=== PATIENT | female | born 1975 | race Caucasian/White ===

== ENCOUNTER 2017-10-26 20:09 | Emergency (ER) | payer MEDICARE, MEDICAID, SELFPAY ==
[2017-10-26 20:19] VITALS: BP 104/51; PULSE 98; RESP 18; TEMP 37; O2SAT 98; BMI 34.4
--- NOTE | 2017-10-26 20:34 | XR_ITS ---
XR chest 2V HISTORY: ITS.REASON: weakness ORDERING PHYSICIAN: Mukul Cisneros MD PATIENT AGE: 42 years COMPARISON: 06/06/2017 FINDINGS: The cardiomediastinal silhouette and pulmonary vascularity are within normal limits. The lungs are clear without infiltrates, suspicious nodules, or pleural effusions. No acute bony abnormalities. IMPRESSION: Negative chest, no acute finding
[2017-10-26 20:59] LABS: Microscopic, Urine URINE MICROSCOPIC (MICROSCOPIC)
[2017-10-26 21:03] LABS: Basophils % 0.5 % (0.1-2.0); Eosinophils # 0.2 K/mm3 (0.0-0.4); Eosinophils % 1.7 % (0.1-12.0); Hematocrit 39.6 % (37.0-47.0); Lymphocytes # 2.8 K/mm3 (0.7-4.5); Lymphocytes % 30.7 K/mm3 (10-50); Mean Corpuscular HGB Conc 35.3 g/dL (31.8-35.4); Mean Corpuscular Hemoglobin 29.3 pg (27.0-31.2); Mean Corpuscular Volume 83.1 fl (81-99); Mean Platelet Volume 9.3 fl (7.4-10.4); Monocytes # 0.5 K/mm3 (0.1-1.0); Monocytes % 5.8 % (1.7-9.3); Neutrophils # 5.6 K/mm3 (1.8-7.8); Neutrophils % 61.3 % (37.0-80.0); Platelet Count 256 K/mm3 (142-424); Red Blood Count 4.76 M/mm3 (4.20-5.40); Red Cell Distribution Width 13.7 % (11.5-17.5); White Blood Count 9.1 K/mm3 (4.8-10.8)
[2017-10-26 21:11] LABS: Appearance,Urine CLEAR (Clear); Blood, Urine 1+ (Negative); Color,Urine YELLOW (Yellow); Glucose,Urine (UA) Negative (Negative); Ketones,Urine TRACE (Negative); Leukocyte Esterase,Urine TRACE (Negative); Nitrate,Urine POSITIVE (Negative); Protein,Urine 1+ (Negative); Specific Gravity, Urine >= 1.030 (1.005-1.030)
[2017-10-26 21:14] LABS: Alanine Aminotransferase 61 U/L (12-78); Albumin Level 3.7 gm/dL (3.4-5.0); Albumin/Globulin Ratio 0.9 (1.1-1.8); Alkaline Phosphatase 138 U/L (46-116); Anion Gap 10.5 mEq/L (5-15); Aspartate Amino Transferase 35 U/L (15-37); Bilirubin,Total 0.7 mg/dL (0.2-1.0); Blood Urea Nitrogen 8 mg/dL (7-18); Calcium 8.9 mg/dL (8.5-10.1); Carbon Dioxide 30 mmol/L (21.0-32.0); Chloride 100 mmol/L (98-107); Creatinine Clearance Estimated 202 mL/min (0-300); Creatinine,Serum 0.56 mg/dL (0.55-1.02); Estimated Glomerular Filt Rate 118 ml/min (>60); GFR (African American) 142 ML/MIN (>60); Globulin 4.1 gm/dl (1.3-3.2); Glucose 118 mg/dL (74-106); Potassium 3.5 mmoL/L (3.5-5.1); Sodium 137 mmol/L (136-145); Total Protein,Serum 7.8 gm/dL (6.4-8.2)
[2017-10-26 21:18] LABS: Lactic Acid 0.7 mmol/L (0.4-2.0)
[2017-10-26 21:29] LABS: Bilirubin,Urine 2+ (Negative)
[2017-10-26 22:02] LABS: WBC,Urine 50-100 #/hpf (0-3)
[2017-10-26 22:03] LABS: Bacteria,Urine 4+ /lpf; Calcium Oxalate Crystals,Urine 2+ /lpf
[2017-10-26 22:17] VITALS: BP 101/74; PULSE 90; RESP 14; O2SAT 98
--- NOTE | 2017-10-26 22:50 | [facility]H.EDSOB ---
ED Disposition Clinical Impression: Bronchitis UTI (urinary tract infection) Qualifiers: Urinary tract infection type: acute cystitis Hematuria presence: without hematuria Qualified Code(s): N30.00 - Acute cystitis without hematuria Disposition: Home, Self-Care Condition on Discharge: Good Instructions: DI for Urinary Tract Infection (UTI) Additional Instructions: fluids and see pcp for follow up Prescriptions: cephALEXin [Keflex 500mg Cap] 500 mg PO TID #30 cap Referrals: Tessa Pickett PA [Primary Care Provider] - - Critical Care Critical Care Time: No Attestation: On 10/26/17, the high probability of a clinically significant, sudden or life threatening deterioration of the following system(s) required my full and direct attention, intervention and personal management. The time I documented below is in addition to time spent performing reported procedures but includes the following listed in this critical care notation. Medical Decision Making - Medical Records Medical records reviewed: Yes: I reviewed the patient's medical records. Vital Signs: 10/26/17 20:19 10/26/17 22:17 Temperature 98.6 F Temperature Source Oral Pulse Rate [Left] 98 H 90 Respiratory Rate 18 14 Blood Pressure [Left Arm] 104/51 101/74 Blood Pressure Mean [Left Arm] 68 83 Blood Pressure Source [Left Arm] Automatic Cuff Blood Pressure Position [Left Arm] Sitting 02 Sat by Pulse Oximetry 98 98 Oxygen Delivery Method Room Air Room Air - Lab Data Lab results reviewed: Yes: I reviewed the patient's lab results. Lab Results 10/26/17 20:51: WBC 9.1, RBC 4.76, Hgb 14.0, Hct 39.6, MCV 83.1, MCH 29.3, MCHC 35.3, RDW 13.7, Plt Count 256, MPV 9.3, Neut % (Auto) 61.3, Lymph % (Auto) 30.7, [place] % (Auto) 5.8, Eos % (Auto) 1.7, Baso % (Auto) 0.5, Neut # (Auto) 5.6, Lymph # (Auto) 2.8, [place] # (Auto) 0.5, Eos # (Auto) 0.2, Baso # (Auto) 0.0 10/26/17 20:51: Sodium 137, Potassium 3.5, Chloride 100, Carbon Dioxide 30, Anion Gap 10.5, BUN 8, Creatinine 0.56, Estimated Creat Clear 202, Estimated GFR 118, Est GFR ( Amer) 142, Glucose 118 H, Calcium 8.9, Total Bilirubin 0.7, AST 35, ALT 61, Alkaline Phosphatase 138 H, Total Protein 7.8, Albumin 3.7, Globulin 4.1 H, Albumin/Globulin Ratio 0.9 L 10/26/17 20:51: Lactic Acid 0.7 10/26/17 20:51: Influenza Type A Ag Negative, Influenza Type B Ag Negative 10/26/17 20:51: Urine Color Yellow, Urine Appearance Clear, Urine pH 6.0, Ur Specific [place] >= 1.030, Urine Protein 1+, Urine Glucose (UA) Negative, Urine Ketones Trace, Urine Blood 1+, Urine Nitrate Positive, Urine Bilirubin 2+ A, Urine Urobilinogen 1.0, Ur Leukocyte Esterase Trace, Urine RBC 3-5, Urine WBC 50-100, Ur Squamous Epith Cells 5-10, Calcium Oxalate Crystal 2+, Urine Bacteria 4+ Result diagrams: 10/26/17 20:51 10/26/17 20:51 Orders (Tests/Meds): ED MEDICATIONS Generic Name Dose Route Start Last Admin Trade Name Freq PRN Reason Stop Dose Admin Sodium Chloride 1,000 mls @ 999 mls/hr 10/26/17 23:00 Sod Chlor 0.9% 1000ml Bag IV 10/27/17 00:00 .Q1H1M VEL Ceftriaxone Sodium 1 gm/ 50 mls @ 100 mls/hr 10/26/17 22:53 Sodium Chloride IV 10/26/17 23:22 ONCE ONE Discontinued Medications Generic Name Dose Route Start Last Admin Trade Name Freq PRN Reason Stop Dose Admin Ketorolac Tromethamine 30 mg 10/26/17 22:54 Toradol 30mg/Ml Vial IV 10/26/17 22:55 ONCE ONE ORDERS Category Date Time Status Chest XR 2 view (NOT portable) [XR chest 2V] Stat Exams 10/26/17 20:34 Taken Blood Culture Stat Micro 10/26/17 20:51 Received Urine Culture Stat Micro 10/26/17 20:51 Received - Radiology Data #1 Image(s): Chest Image Reviewed: Yes I reviewed the patient's radiology image Preliminary Findings: Normal/NAD - Pepito Inquiry Pt receiving controlled substance: No Resp/SOB HPI - General Chief Complaint: Headache Stated Complaint: hodge,body pain Time Seen by Prov
--- NOTE | 2017-10-26 22:55 | ED_ITS ---
ED Disposition Clinical Impression: Bronchitis UTI (urinary tract infection) Qualifiers: Urinary tract infection type: acute cystitis Hematuria presence: without hematuria Qualified Code(s): N30.00 - Acute cystitis without hematuria Disposition: Home, Self-Care Condition on Discharge: Good Instructions: DI for Urinary Tract Infection (UTI) Additional Instructions: fluids and see pcp for follow up Prescriptions: cephALEXin [Keflex 500mg Cap] 500 mg PO TID #30 cap Referrals: Tessa Pickett PA [Primary Care Provider] - - Critical Care Critical Care Time: No Attestation: On 10/26/17, the high probability of a clinically significant, sudden or life threatening deterioration of the following system(s) required my full and direct attention, intervention and personal management. The time I documented below is in addition to time spent performing reported procedures but includes the following listed in this critical care notation. Medical Decision Making - Medical Records Medical records reviewed: Yes: I reviewed the patient's medical records. Vital Signs: 10/26/17 20:19 10/26/17 22:17 Temperature 98.6 F Temperature Source Oral Pulse Rate [Left] 98 H 90 Respiratory Rate 18 14 Blood Pressure [Left Arm] 104/51 101/74 Blood Pressure Mean [Left Arm] 68 83 Blood Pressure Source [Left Arm] Automatic Cuff Blood Pressure Position [Left Arm] Sitting 02 Sat by Pulse Oximetry 98 98 Oxygen Delivery Method Room Air Room Air - Lab Data Lab results reviewed: Yes: I reviewed the patient's lab results. Lab Results 10/26/17 20:51: WBC 9.1, RBC 4.76, Hgb 14.0, Hct 39.6, MCV 83.1, MCH 29.3, MCHC 35.3, RDW 13.7, Plt Count 256, MPV 9.3, Neut % (Auto) 61.3, Lymph % (Auto) 30.7 , [place] % (Auto) 5.8, Eos % (Auto) 1.7, Baso % (Auto) 0.5, Neut # (Auto) 5.6, Lymph # (Auto) 2.8, [place] # (Auto) 0.5, Eos # (Auto) 0.2, Baso # (Auto) 0.0 10/26/17 20:51: Sodium 137, Potassium 3.5, Chloride 100, Carbon Dioxide 30, Anion Gap 10.5, BUN 8, Creatinine 0.56, Estimated Creat Clear 202, Estimated GFR 118, Est GFR ( Amer) 142, Glucose 118 H, Calcium 8.9, Total Bilirubin 0.7, AST 35, ALT 61, Alkaline Phosphatase 138 H, Total Protein 7.8, Albumin 3.7, Globulin 4.1 H, Albumin/Globulin Ratio 0.9 L 10/26/17 20:51: Lactic Acid 0.7 10/26/17 20:51: Influenza Type A Ag Negative, Influenza Type B Ag Negative 10/26/17 20:51: Urine Color Yellow, Urine Appearance Clear, Urine pH 6.0, Ur Specific [place] >= 1.030, Urine Protein 1+, Urine Glucose (UA) Negative, Urine Ketones Trace, Urine Blood 1+, Urine Nitrate Positive, Urine Bilirubin 2+ A, Urine Urobilinogen 1.0, Ur Leukocyte Esterase Trace, Urine RBC 3-5, Urine WBC 50 -100, Ur Squamous Epith Cells 5-10, Calcium Oxalate Crystal 2+, Urine Bacteria 4 + Result diagrams: 10/26/17 20:51 10/26/17 20:51 Orders (Tests/Meds): ED MEDICATIONS Generic Name Dose Route Start Last Admin Trade Name Freq PRN Reason Stop Dose Admin Sodium Chloride 1,000 mls @ 999 mls/hr 10/26/17 23:00 Sod Chlor 0.9% 1000ml Bag IV 10/27/17 00:00 .Q1H1M VEL Ceftriaxone Sodium 1 gm/ 50 mls @ 100 mls/hr 10/26/17 22:53 Sodium Chloride IV 10/26/17 23:22 ONCE ONE Discontinued Medications Generic Name Dose Route Start Last Admin Trade Name Freq PRN Reason Stop Dose Admin Ketorolac Tromethamine 30 mg 10/26/17 22:54 Tor
[2017-10-27] VITALS: BP 121/81; PULSE 100; RESP 16; TEMP 37.2; O2SAT 99
== END 2017-10-27 00:02 | disposition home or self-care (01) ==
PROVIDERS: Emergency Provider Emergency Medicine; Family Provider Physician Assistant; PCP Physician Assistant
DX: J20.9 Acute bronchitis, unspecified (principal); N30.00 Acute cystitis without hematuria; E11.9 Type 2 diabetes mellitus without complications; E78.5 Hyperlipidemia, unspecified; I10 Essential (primary) hypertension; F17.210 Nicotine dependence, cigarettes, uncomplicated; Z79.899 Other long term (current) drug therapy; Z88.0 Allergy status to penicillin; Z88.2 Allergy status to sulfonamides; Z79.82 Long term (current) use of aspirin; Z91.040 Latex allergy status; Z88.8 Allergy status to other drugs, medicaments and biological substances
CPT/HCPCS: 71046; 80053; 81001; 83605; 85025; 87040; 87086; 87088; 87186; 87275; 87276; 96365; 96367; 96372; 96374; 96375; 99283

== ENCOUNTER 2017-11-08 12:43 | Outpatient (CLI) | payer MEDICARE, MEDICAID, SELFPAY ==
--- NOTE | 2017-11-08 12:54 | XR_ITS ---
XR KUB CLINICAL INDICATION: ITS.REASON: UTI ORDERING PHYSICIAN: WAI Houser PATIENT AGE: 42 years COMPARISON: None FINDINGS: Nonspecific nonobstructive bowel gas pattern. Surgical clips right upper quadrant. Faint calcifications are present in the pelvis and could be due to phleboliths. One cannot exclude ureteral calculi. CT may be of further evaluation if clinically warranted. Suture line is present in the pelvis IMPRESSION: 1. Nonspecific pelvic calcification. Cannot exclude a ureteral calculus. 2. Otherwise negative
[2017-11-08 13:36] VITALS: BMI 33.0
[2017-11-08 14:29] VITALS: BP 92/50; PULSE 85; RESP 18; TEMP 36.9; O2SAT 97
[2017-11-08 14:50] VITALS: BP 95/52; PULSE 79; RESP 18; O2SAT 96
[2017-11-08 16:05] VITALS: BP 96/57; PULSE 82; RESP 18; TEMP 36.8; O2SAT 96
== END 2017-11-08 16:10 | disposition home or self-care (01) ==
LOC: INF 12:45
PROVIDERS: PCP Physician Assistant; Visit Provider Physician Assistant
DX: N39.0 Urinary tract infection, site not specified (principal)
CPT/HCPCS: 74018; 96365

== ENCOUNTER → 2017-11-08 12:48 | Outpatient (REF) | payer MEDICARE, MEDICAID, SELFPAY | LOC: LAB 12:48 | PROVIDERS: Visit Provider Nurse Practitioner Family | DX: R10.9 Unspecified abdominal pain (principal) | CPT/HCPCS: 74018; 87086; 96365 ==

== ENCOUNTER 2017-11-09 17:03 | Emergency (ER) | payer MEDICARE, MEDICAID, SELFPAY ==
[2017-11-09 17:07] VITALS: BP 82/48; PULSE 93; RESP 18; TEMP 36.9; O2SAT 96; BMI 33.0
--- NOTE | 2017-11-09 17:21 | HMH.EDUROGF ---
ED Disposition Clinical Impression: Enteritis, Colitis Disposition: Home, Self-Care Condition on Discharge: Fair Additional Instructions: 1- drink plenty of gotrade. 2- flagyl 500 mg tid x one week. 3- bentylt 10 mg tid prn tid. 4- out patietn stool studies folow up with christian pickett on the results. 5- to return foir fever , vomiting or worse pain. Prescriptions: metroNIDAZOLE [Flagyl] 500 mg PO Q8 #21 tab Referrals: Christian Pickett PA [Primary Care Provider] - - Critical Care Critical Care Time: No Attestation: On 11/09/17, the high probability of a clinically significant, sudden or life threatening deterioration of the following system(s) required my full and direct attention, intervention and personal management. The time I documented below is in addition to time spent performing reported procedures but includes the following listed in this critical care notation. Medical Decision Making Vital Signs: 11/09/17 17:07 Temperature 98.5 F Temperature Source Oral Pulse Rate [Right Brachial] 93 H Respiratory Rate 18 Blood Pressure [Right Arm] 82/48 Blood Pressure Mean [Right Arm] 59 Blood Pressure Source [Right Arm] Automatic Cuff Blood Pressure Position [Right Arm] Sitting 02 Sat by Pulse Oximetry 96 Oxygen Delivery Method Room Air - Lab Data Lab Results 11/09/17 17:50: WBC 7.9, RBC 4.13 L, Hgb 12.0 L, Hct 34.4 L, MCV 83.3, MCH 29.2, MCHC 35.0, RDW 13.4, Plt Count 270, MPV 9.3, Neut % (Auto) 60.8, Lymph % (Auto) 30.1, [place] % (Auto) 6.3, Eos % (Auto) 2.3, Baso % (Auto) 0.4, Neut # (Auto) 4.8, Lymph # (Auto) 2.4, [place] # (Auto) 0.5, Eos # (Auto) 0.2, Baso # (Auto) 0.0 11/09/17 17:50: Sodium 138, Potassium 3.5, Chloride 102, Carbon Dioxide 28, Anion Gap 11.5, BUN 10, Creatinine 0.79, Estimated Creat Clear 137, Estimated GFR 79, Est GFR ( Amer) 96, Glucose 151 H, Calcium 8.5, Total Bilirubin 0.4, AST 29, ALT 52, Alkaline Phosphatase 133 H, Total Protein 6.9, Albumin 3.0 L, Globulin 3.9 H, Albumin/Globulin Ratio 0.8 L 11/09/17 17:50: Lactic Acid 1.5 11/09/17 17:55: Urine Color Yellow, Urine Appearance Clear, Urine pH 5.5, Ur Specific [place] 1.025, Urine Protein Trace, Urine Glucose (UA) Negative, Urine Ketones Trace, Urine Blood Negative, Urine Nitrate Negative, Urine Bilirubin 1+ A, Urine Urobilinogen 0.2, Ur Leukocyte Esterase Negative Result diagrams: 11/09/17 17:50 11/09/17 17:50 Orders (Tests/Meds): ED MEDICATIONS Generic Name Dose Route Start Last Admin Trade Name Freq PRN Reason Stop Dose Admin Ceftriaxone Sodium 1 gm/ 50 mls @ 100 mls/hr 11/09/17 17:30 11/09/17 18:06 Sodium Chloride IV 11/23/17 17:29 100 mls/hr Q24H VEL Administration Discontinued Medications Generic Name Dose Route Start Last Admin Trade Name Antonioq PRN Reason Stop Dose Admin Sodium Chloride 500 mls @ 999 mls/hr 11/09/17 17:30 11/09/17 18:06 Sod Chlor 0.9% 1000ml Bag IV 11/09/17 18:00 999 mls/hr .Q31M VEL Administration Meperidine HCl 12.5 mg 11/09/17 17:31 11/09/17 18:06 Meperidine 25mg/Ml 1ml Syringe IV 11/09/17 17:32 12.5 mg ONCE ONE Administration Metronidazole 500 mg 11/09/17 18:27 11/09/17 18:30 Metronidazole 500mg Tablet PO 11/09/17 18:28 500 mg ONCE ONE Administration Protocol Promethazine HCl 12.5 mg 11/09/17 17:31 11/09/17 18:06 Phenergan 25mg/Ml 1ml Vial IV 11/09/17 17:32 12.5 mg ONCE ONE Administration Sodium Chloride 25 ml 11/09/17 17:31 11/09/17 18:06 Sod Chlor 0.9% 25ml Bag IV 11/09/17 17:32 25 ml ONCE ONE Administration ORDERS Category Date Time Status CT abdomen pelvis wo con Stat Cat Scan 11/09/17 17:27 Taken Urinalysis and Microscopic Stat Lab 11/09/17 17:55 Results Blood Culture Stat Micro 11/09/17 17:50 Received - Pepito Inquiry Pt receiving controlled substance: No Pepito was queried for this patient: No Medical Decision Making Narrative: I discussed with the patient's her
--- NOTE | 2017-11-09 17:25 | ED_ITS ---
ED Disposition Clinical Impression: Enteritis, Colitis Disposition: Home, Self-Care Condition on Discharge: Fair Additional Instructions: 1- drink plenty of gotrade. 2- flagyl 500 mg tid x one week. 3- bentylt 10 mg tid prn tid. 4- out patietn stool studies folow up with christian pickett on the results. 5- to return foir fever , vomiting or worse pain. Prescriptions: metroNIDAZOLE [Flagyl] 500 mg PO Q8 #21 tab Referrals: Christian Pickett PA [Primary Care Provider] - - Critical Care Critical Care Time: No Attestation: On 11/09/17, the high probability of a clinically significant, sudden or life threatening deterioration of the following system(s) required my full and direct attention, intervention and personal management. The time I documented below is in addition to time spent performing reported procedures but includes the following listed in this critical care notation. Medical Decision Making Vital Signs: 11/09/17 17:07 Temperature 98.5 F Temperature Source Oral Pulse Rate [Right Brachial] 93 H Respiratory Rate 18 Blood Pressure [Right Arm] 82/48 Blood Pressure Mean [Right Arm] 59 Blood Pressure Source [Right Arm] Automatic Cuff Blood Pressure Position [Right Arm] Sitting 02 Sat by Pulse Oximetry 96 Oxygen Delivery Method Room Air - Lab Data Lab Results 11/09/17 17:50: WBC 7.9, RBC 4.13 L, Hgb 12.0 L, Hct 34.4 L, MCV 83.3, MCH 29.2 , MCHC 35.0, RDW 13.4, Plt Count 270, MPV 9.3, Neut % (Auto) 60.8, Lymph % (Auto ) 30.1, [place] % (Auto) 6.3, Eos % (Auto) 2.3, Baso % (Auto) 0.4, Neut # (Auto) 4.8, Lymph # (Auto) 2.4, [place] # (Auto) 0.5, Eos # (Auto) 0.2, Baso # (Auto) 0.0 11/09/17 17:50: Sodium 138, Potassium 3.5, Chloride 102, Carbon Dioxide 28, Anion Gap 11.5, BUN 10, Creatinine 0.79, Estimated Creat Clear 137, Estimated GFR 79, Est GFR ( Amer) 96, Glucose 151 H, Calcium 8.5, Total Bilirubin 0.4, AST 29, ALT 52, Alkaline Phosphatase 133 H, Total Protein 6.9, Albumin 3.0 L, Globulin 3.9 H, Albumin/Globulin Ratio 0.8 L 11/09/17 17:50: Lactic Acid 1.5 11/09/17 17:55: Urine Color Yellow, Urine Appearance Clear, Urine pH 5.5, Ur Specific [place] 1.025, Urine Protein Trace, Urine Glucose (UA) Negative, Urine Ketones Trace, Urine Blood Negative, Urine Nitrate Negative, Urine Bilirubin 1+ A, Urine Urobilinogen 0.2, Ur Leukocyte Esterase Negative Result diagrams: 11/09/17 17:50 11/09/17 17:50 Orders (Tests/Meds): ED MEDICATIONS Generic Name Dose Route Start Last Admin Trade Name Freq PRN Reason Stop Dose Admin Ceftriaxone Sodium 1 gm/ 50 mls @ 100 mls/hr 11/09/17 17:30 11/09/17 18:06 Sodium Chloride IV 11/23/17 17:29 100 mls/hr Q24H VEL Administration Discontinued Medications Generic Name Dose Route Start Last Admin Trade Name Freq PRN Reason Stop Dose Admin Sodium Chloride 500 mls @ 999 mls/hr 11/09/17 17:30 11/09/17 18:06 Sod Chlor 0.9% 1000ml Bag IV 11/09/17 18:00 999 mls/hr .Q31M VEL Administration Meperidine HCl 12.5 mg 11/09/17 17:31 11/09/17 18:06 Meperidine 25mg/Ml 1ml Syringe IV 11/09/17 17:32 12.5 mg ONCE ONE Administration Metronidazole 500 mg 11/09/17 18:27 11/09/17 18:30 Metronidazole 500mg Tablet PO 11/09/17 18:28 500 mg ONCE ONE Administration Protocol Promethazine HCl 12.5 mg 11/09/17 17:31 0
--- NOTE | 2017-11-09 17:27 | CT_ITS ---
CT abdomen pelvis wo con CLINICAL INDICATION: Abdominal pain and right flank pain. ITS.REASON: hx of horse shoe kidney and r side flank pain . ORDERING PHYSICIAN: Charlie Zheng MD PATIENT AGE: 42 years COMPARISON: 09/12/2016 TECHNIQUE: Axial images obtained with sagittal and coronal reformats. PROCEDURE: Oral Contrast: None IV Contrast: None . FINDINGS: No acute finding is lower chest. Prior cholecystectomy. No focal liver lesion or biliary ductal dilatation. There is elongation of the right hepatic lobe inferiorly consistent with a Bessie's lobe as a normal variant. There is mild splenomegaly at 14 cm scattered granulomas in the spleen and splenules and hilar area. The adrenal glands and pancreas are unremarkable. There is a horseshoe kidney. No hydronephrosis or obstructing renal or ureteral calculi are evident. Unremarkable appendix. No intestinal obstruction or free air. A suture line is present in the pelvic region within the small bowel. There are a few air-fluid levels within the colon which is nonspecific and may be seen with diarrhea or low-grade colitis. Prior hysterectomy. No pelvic mass or focal inflammatory change. No acute bony anomalies. IMPRESSION: 1. Horseshoe kidney configuration. No obstructing renal or ureteral calculi. 2. Unremarkable appendix. 3. Scattered air-fluid levels within nondistended colon which could be seen with diarrhea/low-grade colitis requiring clinical correlation
[2017-11-09 17:58] LABS: Microscopic, Urine URINE MICROSCOPIC (MICROSCOPIC)
[2017-11-09 18:00] LABS: Appearance,Urine CLEAR (Clear); Blood, Urine Negative (Negative); Color,Urine YELLOW (Yellow); Glucose,Urine (UA) Negative (Negative); Ketones,Urine TRACE (Negative); Leukocyte Esterase,Urine Negative (Negative); Nitrate,Urine Negative (Negative); PH,Urine 5.5 (5.0-8.5); Protein,Urine TRACE (Negative); Specific Gravity, Urine 1.025 (1.005-1.030); Urobilinogen,Urine 0.2 EU/dl (0.2)
[2017-11-09 18:02] LABS: Basophils % 0.4 % (0.1-2.0); Eosinophils # 0.2 K/mm3 (0.0-0.4); Eosinophils % 2.3 % (0.1-12.0); Hematocrit 34.4 % (37.0-47.0); Lymphocytes # 2.4 K/mm3 (0.7-4.5); Lymphocytes % 30.1 K/mm3 (10-50); Mean Corpuscular Hemoglobin 29.2 pg (27.0-31.2); Mean Corpuscular Volume 83.3 fl (81-99); Mean Platelet Volume 9.3 fl (7.4-10.4); Monocytes # 0.5 K/mm3 (0.1-1.0); Monocytes % 6.3 % (1.7-9.3); Neutrophils # 4.8 K/mm3 (1.8-7.8); Neutrophils % 60.8 % (37.0-80.0); Platelet Count 270 K/mm3 (142-424); Red Blood Count 4.13 M/mm3 (4.20-5.40); Red Cell Distribution Width 13.4 % (11.5-17.5); White Blood Count 7.9 K/mm3 (4.8-10.8)
[2017-11-09 18:03] LABS: Bilirubin,Urine 1+ (Negative)
[2017-11-09 18:14] LABS: Lactic Acid 1.5 mmol/L (0.4-2.0)
[2017-11-09 18:43] LABS: Alanine Aminotransferase 52 U/L (12-78); Albumin/Globulin Ratio 0.8 (1.1-1.8); Alkaline Phosphatase 133 U/L (46-116); Anion Gap 11.5 mEq/L (5-15); Aspartate Amino Transferase 29 U/L (15-37); Bilirubin,Total 0.4 mg/dL (0.2-1.0); Blood Urea Nitrogen 10 mg/dL (7-18); Calcium 8.5 mg/dL (8.5-10.1); Carbon Dioxide 28 mmol/L (21.0-32.0); Chloride 102 mmol/L (98-107); Creatinine Clearance Estimated 137 mL/min (0-300); Creatinine,Serum 0.79 mg/dL (0.55-1.02); Estimated Glomerular Filt Rate 79 ml/min (>60); GFR (African American) 96 ML/MIN (>60); Globulin 3.9 gm/dl (1.3-3.2); Glucose 151 mg/dL (74-106); Potassium 3.5 mmoL/L (3.5-5.1); Sodium 138 mmol/L (136-145); Total Protein,Serum 6.9 gm/dL (6.4-8.2)
[2017-11-09 19:13] LABS: Bacteria,Urine 1+ /lpf; RBC,Urine Occasional #/hpf (0-3); Squamous Epithelial Cell,Urine Occasional #/hpf (0-5); WBC,Urine Occasional #/hpf (0-3)
[2017-11-09 19:27] VITALS: BP 88/49; PULSE 95; RESP 16; TEMP 36.8; O2SAT 96
== END 2017-11-09 19:33 | disposition home or self-care (01) ==
PROVIDERS: Emergency Provider Emergency Medicine; Family Provider Physician Assistant; PCP Physician Assistant
DX: K52.9 Noninfective gastroenteritis and colitis, unspecified (principal); F17.210 Nicotine dependence, cigarettes, uncomplicated; E11.9 Type 2 diabetes mellitus without complications; I10 Essential (primary) hypertension; E78.5 Hyperlipidemia, unspecified; Z79.51 Long term (current) use of inhaled steroids; Z79.899 Other long term (current) drug therapy
CPT/HCPCS: 74176; 80053; 81001; 83605; 85025; 87040; 96365; 96367; 96374; 96375; 99282

== ENCOUNTER → 2017-12-30 13:34 | Outpatient (REF) | payer MEDICARE, MEDICAID, SELFPAY ==
[2017-12-30 18:42] LABS: Basophils # 0.1 K/mm3 (0-0.2); Basophils % 0.6 % (0.1-2.0); Eosinophils # 0.2 K/mm3 (0.0-0.4); Eosinophils % 2.7 % (0.1-12.0); Hematocrit 39.6 % (37.0-47.0); Hemoglobin 13.4 g/dL (12.2-16.2); Lymphocytes # 2.8 K/mm3 (0.7-4.5); Lymphocytes % 31.7 K/mm3 (10-50); Mean Corpuscular HGB Conc 33.8 g/dL (31.8-35.4); Mean Corpuscular Hemoglobin 29.2 pg (27.0-31.2); Mean Corpuscular Volume 86.5 fl (81-99); Mean Platelet Volume 9.5 fl (7.4-10.4); Monocytes # 0.4 K/mm3 (0.1-1.0); Monocytes % 4.1 % (1.7-9.3); Neutrophils # 5.3 K/mm3 (1.8-7.8); Neutrophils % 60.9 % (37.0-80.0); Platelet Count 259 K/mm3 (142-424); Red Blood Count 4.58 M/mm3 (4.20-5.40); Red Cell Distribution Width 14.4 % (11.5-17.5); White Blood Count 8.8 K/mm3 (4.8-10.8)
[2017-12-30 18:56] LABS: Alanine Aminotransferase 39 U/L (12-78); Albumin Level 3.9 gm/dL (3.4-5.0); Albumin/Globulin Ratio 1.2 (1.1-1.8); Alkaline Phosphatase 105 U/L (46-116); Anion Gap 16.1 mEq/L (5-15); Aspartate Amino Transferase 32 U/L (15-37); Bilirubin,Total 0.5 mg/dL (0.2-1.0); Blood Urea Nitrogen 10 mg/dL (7-18); Calcium 9.2 mg/dL (8.5-10.1); Carbon Dioxide 25 mmol/L (21.0-32.0); Chloride 100 mmol/L (98-107); Cholesterol 206 mg/dL (140-200); Creatinine,Serum 0.56 mg/dL (0.55-1.02); Estimated Glomerular Filt Rate 118 ml/min (>60); GFR (African American) 142 ML/MIN (>60); Globulin 3.3 gm/dl (1.3-3.2); Glucose 142 mg/dL (74-106); HDL Cholesterol 52 mg/dL (29-89); LDL Cholesterol 88 mg/dL (0-130); Potassium 4.1 mmoL/L (3.5-5.1); Sodium 137 mmol/L (136-145); T4 (Thyroxine) 4.3 ug/dl (4.7-13.3); Thyroid Stimulating Hormone 62.16 uIU/ml (0.358-3.740); Total Protein,Serum 7.2 gm/dL (6.4-8.2); Triglycerides 330 mg/dL (30-200); VLDL Cholesterol 66 mg/dL (0-40)
[2017-12-30 19:02] LABS: Hemoglobin A1C 6.9 % (0.0-7.0)
[2017-12-31 14:38] LABS: Amphetamine/Metha Screen,Urine Negative ng/mL (<1000); Barbiturates Screen,Urine Negative ng/mL (<200); Benzodiazepines Screen,Urine Negative ng/mL (200); Cannabinoid Screen,Urine Negative ng/mL (<50); Cocaine Screen,Urine Negative ng/g (<300); Methadone Screen,Urine Negative ng/mL (<300); Opiate Screen,Urine Negative ng/mL (<300); Phencyclidine Screen,Urine Negative ng/mL (<25)
[2018-01-02 18:47] LABS: Vitamin D 25 Hydroxy 10.4 ng/mL (30.0-100.0)
[2018-01-02 18:51] LABS: Microalbumin, Urine <3.0 ug/mL (Not Estab.)
== END ==
LOC: LAB 13:34
PROVIDERS: Visit Provider Physician Assistant
DX: Z79.899 Other long term (current) drug therapy (principal); R14.0 Abdominal distension (gaseous); E11.9 Type 2 diabetes mellitus without complications; R53.83 Other fatigue
CPT/HCPCS: 80053; 80061; 80305; 82043; 82652; 83036; 84436; 84443; 85025

== ENCOUNTER → 2018-01-24 10:28 | Outpatient (POV) | payer MEDICARE, SELFPAY | PROVIDERS: Family Provider Physician Assistant; PCP Physician Assistant; Visit Provider Nurse Practitioner Acute Care | DX: Z00.00 Encounter for general adult medical examination without abnormal findings (principal) ==

== ENCOUNTER → 2018-03-02 15:17 | Outpatient (REF) | payer MEDICARE, SELFPAY | LOC: LAB 15:17 | PROVIDERS: Visit Provider Nurse Practitioner Family | DX: R05 Cough (principal); J18.9 Pneumonia, unspecified organism | CPT/HCPCS: 87070; 87205 ==

== ENCOUNTER 2018-03-07 20:57 | Emergency (ER) | payer MEDICARE, SELFPAY ==
[2018-03-07 20:58] VITALS: BP 102/64; PULSE 90; RESP 16; TEMP 37.1; O2SAT 97; BMI 34.4
--- NOTE | 2018-03-07 21:15 | CT_ITS ---
CT abdomen pelvis wo con CLINICAL INDICATION: Diffuse abdominal pain status post colonoscopy and endoscopic gastric distention ITS.REASON: abdominal pain ORDERING PHYSICIAN: Mukul Cisneros MD PATIENT AGE: 42 years COMPARISON: 12/20/2016 TECHNIQUE: Axial images obtained with sagittal and coronal reformats. All CT scans at the facility use one or more dose reduction, viz: automated exposure control; ma/kV adjustment per patient size (including targeted exams where dose is matched to indication; i.e. head); or iterative reconstruction technique. PROCEDURE: Oral Contrast: None IV Contrast: None . FINDINGS: Lower thorax: No acute finding There is mild splenomegaly at 14 cm. No focal liver lesion. The adrenal glands and pancreas are unremarkable. Prior cholecystectomy without ductal dilatation. No intestinal obstruction or free air. No evidence of bowel perforation. Prior surgery for small bowel anastomosis in the lower pelvic region. Horseshoe kidney. No renal obstruction or renal or ureteral calculi evident. Unremarkable appendix. No intestinal obstruction or free air. No pelvic mass or fluid collection or focal pelvic inflammatory changes. Prior hysterectomy. IMPRESSION: 1. No acute abdominal pelvic findings. No acute bony anomalies. Prior hysterectomy. Surgical
--- NOTE | 2018-03-07 22:12 | HMH.EDNVD ---
ED Disposition Clinical Impression: Abdominal pain Qualifiers: Abdominal location: generalized Qualified Code(s): R10.84 - Generalized abdominal pain Disposition: Home, Self-Care Condition on Discharge: Good Instructions: DI for Acute Abdomen Additional Instructions: fluids and call pcp or dr soliz in am Referrals: Tessa Pickett PA [Primary Care Provider] - - Critical Care Critical Care Time: No Attestation: On 03/07/18, the high probability of a clinically significant, sudden or life threatening deterioration of the following system(s) required my full and direct attention, intervention and personal management. The time I documented below is in addition to time spent performing reported procedures but includes the following listed in this critical care notation. Medical Decision Making - Medical Records Medical records reviewed: Yes: I reviewed the patient's medical records. - Pepito Inquiry Pt receiving controlled substance: No Vital Signs: 03/07/18 20:58 Temperature 98.7 F Temperature Source Oral Pulse Rate [Right Brachial] 90 Respiratory Rate 16 Blood Pressure [Right Arm] 102/64 Blood Pressure Mean [Right Arm] 76 02 Sat by Pulse Oximetry 97 - Lab Data Lab results reviewed: Yes: I reviewed the patient's lab results. Orders (Tests/Meds): ORDERS Category Date Time Status CT abdomen pelvis wo con Stat Cat Scan 03/07/18 21:15 Taken - CT Data CT Scan: Abdomen, Pelvis Time Received: 22:[address] Reviewed: Yes: I have viewed the radiologist's interpretation Preliminary Findings: Normal/NAD Nausea/Vomiting/Diarrhea HPI - General Chief complaint: Abdominal Pain Stated complaint: post surgical abd pain Time Seen by Provider: 03/07/18 21:15 Mode of Arrival: Ambulatory Source of Information: Patient, Medical Record Limitations: No Limitations Description of Symptoms (Recalled from ER Triage Doc. by RN): Reports had a colonoscopy/egd with dr soliz today. Discharged at 1400 today, reports lower abd cramping and pain now. - History of Present Illness HPI Narrative: had egd and colon today and now with crampy abd pain with no fever or vomiting MD complaint: nausea, abdominal pain Onset (ago): hour(s) Associated Abdominal Pain: Yes Location of pain: LLQ Severity: moderate - Related Data Home Medications Medication Instructions Recorded Confirmed Dicyclomine HCl [Bentyl 10mg 10 mg PO Q8H 10/26/17 03/07/18 capsule] gabapentin 800 mg tablet 800 mg PO QID tab 12/30/17 03/07/18 Carvedilol [Carvedilol 3.125mg Tab] 3.125 mg PO BID 01/05/18 03/07/18 Cholecalciferol (Vitamin D3) 1,000 unit PO ONCE 01/05/18 03/07/18 [Vitamin D3 1,000 Unit Cap] Ergocalciferol (Vitamin D2) 50,000 unit PO QWEEK 01/05/18 03/07/18 [Vitamin D2] Fenofibrate Nanocrystallized 145 mg PO DAILY 01/05/18 03/07/18 [Tricor] Potassium Chloride [Micro-K 10mEq 10 meq PO DAILY 01/05/18 03/07/18 cap] Buprenorphine HCl/Naloxone HCl 1 each PO BID 01/16/18 03/07/18 [Suboxone 8 mg-2 mg Sl Film] Eszopiclone 2 mg PO QHS PRN 03/07/18 03/07/18 Previous Rx's Medication Instructions Recorded hydroxyzine HCl 25 mg tablet 25 mg PO QHS PRN 90 Days #90 tab 09/23/17 linagliptin 5 mg tablet 5 mg PO DAILY 90 Days #90 tab 12/30/17 lisinopril 10 mg tablet 10 mg PO DAILY 90 Days #90 tab 12/30/17 metformin 1,000 mg tablet 1,000 mg PO BID 90 Days #180 tab 12/30/17 omeprazole 20 mg capsule,delayed 20 mg PO BID 90 Days #180 cap 12/30/17 release ropinirole 2 mg tablet 2 mg PO QHS 90 Days #90 tab 12/30/17 simvastatin 10 mg tablet 10 mg PO QPM #90 tab 12/30/17 promethazine 25 mg tablet 25 mg PO Q4-6H PRN #30 tab 02/10/18 Ondansetron [Zofran 4mg ODT] 4 mg SL Q6HP PRN 7 Days #30 02/23/18 tab.rapdis Allergies Allergy/AdvReac Type Severity Reaction Status Date / Time clarithromycin Allergy Severe S-DROP IN Verified 03/07/18 11:25 B/P Iodinated Contrast Media - Allergy Severe CHEST Verifi
--- NOTE | 2018-03-07 22:15 | ED_ITS ---
ED Disposition Clinical Impression: Abdominal pain Qualifiers: Abdominal location: generalized Qualified Code(s): R10.84 - Generalized abdominal pain Disposition: Home, Self-Care Condition on Discharge: Good Instructions: DI for Acute Abdomen Additional Instructions: fluids and call pcp or dr soliz in am Referrals: Tessa Pickett PA [Primary Care Provider] - - Critical Care Critical Care Time: No Attestation: On 03/07/18, the high probability of a clinically significant, sudden or life threatening deterioration of the following system(s) required my full and direct attention, intervention and personal management. The time I documented below is in addition to time spent performing reported procedures but includes the following listed in this critical care notation. Medical Decision Making - Medical Records Medical records reviewed: Yes: I reviewed the patient's medical records. - Pepito Inquiry Pt receiving controlled substance: No Vital Signs: 03/07/18 20:58 Temperature 98.7 F Temperature Source Oral Pulse Rate [Right Brachial] 90 Respiratory Rate 16 Blood Pressure [Right Arm] 102/64 Blood Pressure Mean [Right Arm] 76 02 Sat by Pulse Oximetry 97 - Lab Data Lab results reviewed: Yes: I reviewed the patient's lab results. Orders (Tests/Meds): ORDERS Category Date Time Status CT abdomen pelvis wo con Stat Cat Scan 03/07/18 21:15 Taken - CT Data CT Scan: Abdomen, Pelvis Time Received: 22:[address] Reviewed: Yes: I have viewed the radiologist's interpretation Preliminary Findings: Normal/NAD Nausea/Vomiting/Diarrhea HPI - General Chief complaint: Abdominal Pain Stated complaint: post surgical abd pain Time Seen by Provider: 03/07/18 21:15 Mode of Arrival: Ambulatory Source of Information: Patient, Medical Record Limitations: No Limitations Description of Symptoms (Recalled from ER Triage Doc. by RN): Reports had a colonoscopy/egd with dr soliz today. Discharged at 1400 today, reports lower abd cramping and pain now. - History of Present Illness HPI Narrative: had egd and colon today and now with crampy abd pain with no fever or vomiting MD complaint: nausea, abdominal pain Onset (ago): hour(s) Associated Abdominal Pain: Yes Location of pain: LLQ Severity: moderate - Related Data Home Medications Medication Instructions Recorded Confirmed Dicyclomine HCl [Bentyl 10mg 10 mg PO Q8H 10/26/17 03/07/18 capsule] gabapentin 800 mg tablet 800 mg PO QID tab 12/30/17 03/07/18 Carvedilol [Carvedilol 3.125mg Tab] 3.125 mg PO BID 01/05/18 03/07/18 Cholecalciferol (Vitamin D3) 1,000 unit PO ONCE 01/05/18 03/07/18 [Vitamin D3 1,000 Unit Cap] Ergocalciferol (Vitamin D2) 50,000 unit PO QWEEK 01/05/18 03/07/18 [Vitamin D2] Fenofibrate Nanocrystallized 145 mg PO DAILY 01/05/18 03/07/18 [Tricor] Potassium Chloride [Micro-K 10mEq 10 meq PO DAILY 01/05/18 03/07/18 cap] Buprenorphine HCl/Naloxone HCl 1 each PO BID 01/16/18 03/07/18 [Suboxone 8 mg-2 mg Sl Film] Eszopiclone 2 mg PO QHS PRN 03/07/18 03/07/18 Previous Rx's Medication Instructions Recorded hydroxyzine HCl 25 mg tablet 25 mg PO QHS PRN 90 Days #90 tab 09/23/17 linagliptin 5 mg tablet 5 mg PO DAILY 90 Days #90 ta
[2018-03-07 22:21] VITALS: BP 104/68; PULSE 97; RESP 16; TEMP 37.1; O2SAT 97
== END 2018-03-07 22:31 | disposition home or self-care (01) ==
PROVIDERS: Emergency Provider Emergency Medicine; Family Provider Physician Assistant; PCP Physician Assistant
DX: R10.84 Generalized abdominal pain (principal); J44.9 Chronic obstructive pulmonary disease, unspecified; I10 Essential (primary) hypertension; E78.5 Hyperlipidemia, unspecified; E10.9 Type 1 diabetes mellitus without complications; F17.210 Nicotine dependence, cigarettes, uncomplicated; Z88.0 Allergy status to penicillin; Z88.2 Allergy status to sulfonamides; Z88.6 Allergy status to analgesic agent; Z88.8 Allergy status to other drugs, medicaments and biological substances
CPT/HCPCS: 74176; 82962; 88305; 96372; 99282

== ENCOUNTER 2023-11-28 16:09 | Emergency (ER) | payer MEDICARE, BC, SELFPAY ==
[2023-11-28 16:30] VITALS: BP 151/90; PULSE 98; RESP 20; TEMP 36.7; O2SAT 100; BMI 31.3
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
[2023-11-28 17:15] VITALS: BP 151/90; PULSE 98; RESP 20; TEMP 36.7; O2SAT 100
== END 2023-11-28 17:33 | disposition home or self-care (01) ==
PROVIDERS: Emergency Provider Nurse Practitioner
DX: M75.31 Calcific tendinitis of right shoulder (principal); X58.XXXA Exposure to other specified factors, initial encounter; E11.9 Type 2 diabetes mellitus without complications; E78.5 Hyperlipidemia, unspecified; F17.210 Nicotine dependence, cigarettes, uncomplicated
CPT/HCPCS: 73030; 99203; 99212; G0463

== ENCOUNTER 2024-01-25 17:41 | Emergency (ER) | payer MEDICARE, BC, SELFPAY ==
--- OUTSIDE RECORDS SUMMARY | 2024-01-25 17:49 | XMS_ITS | Continuity of Care Document ---
Author Name Unknown Organization [facility] [employer] Address [address] [facility] [place] [address] Phone Care Team Providers Care Assistant To The Vice President Name Role Phone Patito PMHNP-BC CARN-AP PMHNP-BC CARN-A, Meenakshi Unavailable Unavailable Allergies, Adverse Reactions, Alerts Substance Reaction Status Criticality NITROFURANTOIN MACROCRYSTALLINE Active No Information nitrofurantoin Active No Informatio n PENICILLIN Active No Information morphine Active No Information Medications Medication Instructions Dosage Effective Dates (start - stop) Status Comments gabapentin 800 mg tablet take 1 tablet by oral route 4 times every day 800 MG - Active Auvelity 45 mg-105 mg tablet, extended release take 1 tablet by oral route every day 1 tablet - Active Trileptal 150 mg tablet take 1/2 tablet by oral route 2 times every day - Active Vraylar 1.5 mg capsule take 1 capsule by oral route every day 1.5 MG - Active prazosin 1 mg capsule take 2 capsule by oral route qhs for nightmares - Active Lamictal 200 mg tablet take 1 tablet by oral route every day 200 MG - Active Narcan 4 mg/actuation nasal spray spray 0.1 milliliter by intranasal route in 1 nostril may repeat dose every 2-3 minutes as needed alternating nostrils with each dose 4 MG - Active lidocaine 5 % topical patch apply 1 patch by transdermal route every day (May wear up to 12hours.) 1.00 patch - Active Maxitrol 3.5 mg/g-10,000 unit/g-0.1 % eye ointment apply by ophthalmic route 3 times every day a small amount into the conjunctival sac(s) in affected eye(s) 0.00 - Active ropinirole 2 mg tablet take 2 Tablet by oral route every day 4 MG - Active simvastatin 10 mg tablet TAKE 1 TABLET BY MOUTH EVERY DAY IN THE EVENING - Active Insulin Syringe 1 mL 29 gauge x 1/2 inject insulin as scheduled - Active omeprazole 40 mg capsule,delayed release take 1 capsule by oral route every day - Active ipratropium 0.5 mg-albuterol 3 mg (2.5 mg base)/3 mL nebulization soln inhale 3 milliliter by nebulization route 4 times every day as needed 3.00 milliliter - Active fenofibrate nanocrystallized 145 mg tablet TAKE 1 TABLET BY MOUTH EVERY DAY - Active albuterol sulfate HFA 90 mcg/actuation aerosol inhaler inhale 2 puff by inhalation route every 4 - 6 hours as needed 180 MCG - Active carvedilol 3.125 mg tablet take 1 tablet by oral route 2 times every day with food 3.125 MG - Active clonidine HCl 0.1 mg tablet take 1 tablet by oral route 2 times every day 0.1 MG - Active Jardiance 25 mg tablet take 1 tablet by oral route every day in the morning 25 MG - Active Lantus Solostar U-100 Insulin 100 unit/mL (3 mL) subcutaneous pen inject 55 units by subcutaneous route as per insulin protocol maximum daily dose 150 - Active Humalog KwikPen (U-100) Insulin 100 unit/mL subcutaneous inject 30 units with meals by subcutaneous route per prescriber's instructions. Insulin dosing requires individualization. maximum daily dose 150 units - Active Humalog Mix 75-25 (U-100) Insulin 100 unit/mL subcutaneous suspension INJECT SUBCUTANEOUSLY INSULIN DOSING REQUIRES INDIVIDUALIZATION. 70 UNITS 3 TIMES DAILY - Active Humulin R Regular U-100 Insulin 100 unit/mL injection solution inject 10 UNITS SUB Q 3 TIMES DAILY WITH MEALS - Active levothyroxine 300 mcg tablet TAKE 1 TABLET BY MOUTH EVERY DAY - Active Tradjenta 5 mg tablet TAKE 1 TABLET BY MOUTH EVERY DAY - Active lisinopril 10 mg tablet take 1 tablet by oral route every day 10 MG - Active dicyclomine 10 mg capsule TAKE 1 CAPSULE BY MOUTH 3 TIMES EVERY DAY - Active promethazine 25 mg tablet take 1 tablet by oral route 3 times every day as needed for nausea - Active Seroquel 25 mg tablet take 1/4- 1/2 tablet by oral route up to 4 times a day as needed for anxiety - Active fluconazole 150 mg tablet take 1 tablet by oral route once 150 MG - Active pen needle, diabetic 32 gauge x /32 use with insulin injections - Active ondansetron HCl 4 mg tablet take 1 tablet by oral route every day 4 MG - Active Sharps Container 1 small sharps container - Active gabapentin 800 mg tablet take 1 tablet by oral route 4 times every day 800 MG - No Longer Active buprenorphine 8 mg-naloxone [address] 2 tablet by sublingual route every day allow to dissolve slowly in mouth without chewing or swallowing - No Longer Active Procedures Procedure Date OFFICE/OUTPATIENT VISIT, EST SYST BP GE 130 - 139MM HG DIAST BP 80-89 MM HG WEIGHT RECORDED BODY MASS INDEX DOCD Drug Screening, UDS/BUP URINALYSIS, AUTO W/SCOPE CR SHOULDER 2 VIEW OFFICE/OUTPATIENT VISIT, EST SYST BP >= 140 MM HG6 IT DIAST BP 80-89 MM HG WEIGHT RECORDED BODY MASS INDEX DOCD Psychotherapy 30 Minutes SYST BP >= 140 MM HG6 IT DIAST BP 80-89 MM HG WEIGHT RECORDED BODY MASS INDEX DOCD SPECIMEN HANDLING NO CHARGE Drug Screening, UDS/BUP OFFICE/OUTPATIENT VISIT, EST SYST BP >= 140 MM HG6 IT DIAST BP 80-89 MM HG WEIGHT RECORDED BODY MASS INDEX DOCD SPECIMEN HANDLING NO CHARGE Drug Screening, UDS/BUP OFFICE/OUTPATIENT VISIT, EST SYST BP LT 130 MM HG DIAST BP < 80 MM HG WEIGHT RECORDED BODY MASS INDEX DOCD Psychotherapy 30 Minutes SYST BP LT 130 MM HG DIAST BP < 80 MM HG WEIGHT RECORDED BODY MASS INDEX DOCD OFFICE/OUTPATIENT VISIT, EST SYST BP LT 130 MM HG DIAST BP < 80 MM HG WEIGHT RECORDED BODY MASS INDEX DOCD SPECIMEN HANDLING NO CHARGE Drug Screening, UDS/BUP OFFICE/OUTPATIENT VISIT, EST SYST BP LT 130 MM HG DIAST BP < 80 MM HG WEIGHT RECORDED BODY MASS INDEX DOCD *Toradol 60 Mg IM 4 Units INJECTION ADMIN FEE WITH OFFICE VISIT Fe Psychotherapy 30 Minutes SYST BP LT 130 MM HG DIAST BP < 80 MM HG WEIGHT RECORDED BODY MASS INDEX DOCD OFFICE/OUTPATIENT VISIT, EST SYST BP LT 130 MM HG DIAST BP < 80 MM HG WEIGHT RECORDED BODY MASS INDEX DOCD SPECIMEN HANDLING NO CHARGE Drug Screening, UDS/BUP OFFICE/OUTPATIENT VISIT, EST SYST BP LT 130 MM HG DIAST BP 80-89 MM HG WEIGHT RECORDED BODY MASS INDEX DOCD OFFICE/OUTPATIENT VISIT, EST SYST BP GE 130 - 139MM HG DIAST BP 80-89 MM HG WEIGHT RECORDED BODY MASS INDEX DOCD Psychotherapy 30 Minutes SPECIMEN HANDLING NO CHARGE Drug Screening, UDS/BUP OFFICE/OUTPATIENT VISIT, EST Prolonged Care, 15 Min Esketamine, nasal spray Esketamine, nasal spray OFFICE/OUTPATIENT VISIT, EST SYST BP LT 130 MM HG DIAST BP 80-89 MM HG WEIGHT RECORDED BODY MASS INDEX DOCD OFFICE/OUTPATIENT VISIT, EST SYST BP LT 130 MM HG DIAST BP 80-89 MM HG WEIGHT RECORDED BODY MASS INDEX DOCD SPECIMEN HANDLING NO CHARGE Drug Screening, UDS/BUP OFFICE/OUTPATIENT VISIT, EST Prolonged Care, 15 Min SYST BP LT 130 MM HG DIAST BP 80-89 MM HG WEIGHT RECORDED BODY MASS INDEX DOCD Esketamine, nasal spray Esketamine, nasal spray Psychotherapy 30 Minutes SYST BP LT 130 MM HG DIAST BP 80-89 MM HG WEIGHT RECORDED BODY MASS INDEX DOCD OFFICE/OUTPATIENT VISIT, EST SYST BP GE 130 - 139MM HG DIAST BP 80-89 MM HG WEIGHT RECORDED BODY MASS INDEX [facility] *Toradol 60 Mg IM 4 Units INJECTION ADMIN FEE WITH OFFICE VISIT *ZOFRAN 8MG IM(8 BILLING UNITS) INJECTION ADMIN FEE WITH OFFICE VISIT Benadryl 25mg IM INJECTION ADMIN FEE WITH OFFICE VISIT OFFICE/OUTPATIENT VISIT, EST SYST BP LT 130 MM HG DIAST BP 80-89 MM HG WEIGHT RECORDED BODY MASS INDEX DOCD OFFICE/OUTPATIENT VISIT, EST Prolonged Care, 15 Min SYST BP LT 130 MM HG DIAST BP 80-89 MM HG WEIGHT RECORDED BODY [facility], nasal spray Esketamine, nasal spray SPECIMEN HANDLING NO CHARGE Drug Screening, UDS/BUP Alcohol/subs interv 15-30mn OFFICE/OUTPATIENT VISIT, EST SYST BP GE 130 - 139MM HG DIAST BP 80-89 MM HG WEIGHT RECORDED BODY MASS IN[facility] 30 Minutes SYST BP GE 130 - 139MM HG DIAST BP 80-89 MM HG WEIGHT RECORDED BODY MASS INDEX DOCD SPECIMEN HANDLING NO CHARGE Drug Screening, UDS/BUP OFFICE/OUTPATIENT VISIT, EST Brief Communication [facility] SPECIMEN HANDLING NO CHARGE Drug Screening, UDS/BUP OFFICE/OUTPATIENT VISIT, EST SYST BP GE 130 - 139MM HG DIAST BP 80-89 MM HG WEIGHT RECORDED BODY MASS INDEX DOCD Psychotherapy 30 Minutes SYST BP GE 130 - 139MM HG DIAST BP 80-89 MM HG WEIGHT RECORDED BODY MASS INDEX DOCD OFFICE/OUTPATIENT VISIT, EST Prolonged Care, 15 Min SYST BP GE 130 - 139MM HG DIAST BP 80-89 MM HG WEIGHT RECORDED BODY MASS INDEX DOCD Esketamine, nasal spray SPECIMEN HANDLING NO CHARGE Drug Screening, UDS/BUP COMPREHEN METABOLIC PANEL COMPLETE CBC, AUTOMATED OFFICE/OUTPATIENT VISIT, EST SYST BP LT 130 MM HG DIAST BP 80-89 MM HG WEIGHT RECORDED BODY MASS INDEX DOCD Psychotherapy 30 Minutes SYST BP LT 130 MM HG DIAST BP 80-89 MM HG WEIGHT RECORDED BODY MASS INDEX DOCD SPECIMEN HANDLING NO CHARGE Drug Screening, UDS/BUP OFFICE/OUTPATIENT VISIT, EST SYST BP LT 130 MM HG DIAST BP 80-89 MM HG WEIGHT RECORDED BODY MASS INDEX DOCD Psychotherapy, With Pt 45 Min SYST BP LT 130 MM HG DIAST BP 80-89 MM HG WEIGHT RECORDED BODY MASS INDEX DOCD Esketamine, nasal spray OFFICE/OUTPATIENT VISIT, EST Prolonged Care, 15 Min SYST BP GE 130 - 139MM HG DIAST BP 80-89 MM HG WEIGHT RECORDED BODY MASS INDEX DOCD OFFICE/OUTPATIENT VISIT, EST SYST BP LT 130 MM HG DIAST BP 80-89 MM HG WEIGHT RECORDED BODY MASS INDEX DOCD OFFICE/OUTPATIENT VISIT, EST HEMOGLOBIN A1C LEVEL > 9.0% SYST BP GE 130 - 139MM HG DIAST BP 80-89 MM HG WEIGHT RECORDED BODY MASS INDEX DOCD Psychotherapy 30 Minutes SYST BP GE 130 - 139MM HG DIAST BP 80-89 MM HG WEIGHT RECORDED BODY MASS INDEX DOCD SPECIMEN HANDLING NO CHARGE Drug Screening, UDS/BUP OFFICE/OUTPATIENT VISIT, EST SYST BP GE 130 - 139MM HG DIAST BP 80-89 MM HG WEIGHT RECORDED BODY MASS INDEX DOCD Psychotherapy 30 Minutes SPECIMEN HANDLING NO CHARGE Drug Screening, UDS/BUP OFFICE/OUTPATIENT VISIT, EST SYST BP LT 130 MM HG DIAST BP < 80 MM HG WEIGHT RECORDED BODY MASS INDEX DOCD Esketamine, nasal spray OFFICE/OUTPATIENT VISIT, EST Prolonged Care, 15 Min Psychotherapy 30 Minutes SPECIMEN HANDLING NO CHARGE Drug Screening, UDS/BUP OFFICE/OUTPATIENT VISIT, EST SYST BP LT 130 MM HG DIAST BP 80-89 MM HG WEIGHT RECORDED BODY MASS INDEX DOCD Psychotherapy 30 Minutes SYST BP LT 130 MM HG DIAST BP 80-89 MM HG WEIGHT RECORDED BODY MASS INDEX DOCD Esketamine, nasal spray Prolonged Care, 15 Min OFFICE/OUTPATIENT VISIT, EST SYST BP LT 130 MM HG DIAST BP 80-89 MM HG WEIGHT RECORDED BODY MASS INDEX DOCD Psychotherapy 30 Minutes SPECIMEN HANDLING NO CHARGE Drug Screening, UDS/BUP OFFICE/OUTPATIENT VISIT, EST SYST BP LT 130 MM HG DIAST BP 80-89 MM HG WEIGHT RECORDED BODY MASS INDEX DOCD Esketamine, nasal spray [facility] SPECIMEN HANDLING NO CHARGE Drug Screening, UDS/BUP VENIPUNCTURE ROUTINE GLYCATED HEMOGLOBIN TEST LIPID PANEL COMPLETE CBC, AUTOMATED COMPREHEN METABOLIC PANEL BLOOD FOLIC ACID SERUM ELECTROCARDIOGRAM, COMPLETE VITAMIN B-12 ASSAY OF FREE THYROXINE ASSAY THYROID STIM HORMONE OFFICE/OUTPATIENT VISIT, EST SYST BP LT 130 MM HG DIAST BP 80-89 MM HG WEIGHT RECORDED BODY MASS INDEX [facility] Esketamine, nasal spray [facility] SYST BP LT 130 MM HG DIAST BP 80-89 MM HG WEIGHT RECORDED BODY MASS INDEX [facility] SPECIMEN HANDLING NO CHARGE Drug Screening, UDS/BUP URINE TEST OFFICE/OUTPATIENT VISIT, EST SYST BP LT 130 MM HG DIAST BP < 80 MM HG WEIGHT RECORDED BODY MASS INDEX [facility] Esketamine, nasal spray [facility] SYST BP LT 130 MM HG DIAST BP < 80 MM HG WEIGHT RECORDED BODY MASS INDEX [facility] Psychotherapy 30 Minutes SYST BP GE 130 - 139MM HG DIAST BP 80-89 MM HG WEIGHT RECORDED BODY MASS INDEX [facility] OFFICE/OUTPATIENT VISIT, EST SYST BP GE 130 - 139MM HG DIAST BP 80-89 MM HG WEIGHT RECORDED BODY MASS INDEX [facility] Esketamine, nasal spray [facility] OFFICE/OUTPATIENT VISIT, EST SYST BP GE 130 - 139MM HG DIAST BP 80-89 MM HG WEIGHT RECORDED BODY MASS INDEX [facility] SPECIMEN HANDLING NO CHARGE Drug Screening, UDS/BUP OFFICE/OUTPATIENT VISIT, EST SYST BP GE 130 - 139MM HG DIAST BP 80-89 MM HG WEIGHT RECORDED BODY MASS INDEX DOCD Esketamine, nasal spray [facility] Esketamine, nasal spray [facility] OFFICE/OUTPATIENT VISIT, EST SPECIMEN HANDLING NO CHARGE Drug Screening, UDS/BUP OFFICE/OUTPATIENT VISIT, EST SYST BP GE 130 - 139MM HG DIAST BP < 80 MM HG WEIGHT RECORDED BODY MASS INDEX DOCD Esketamine, nasal spray [facility] OFFICE/OUTPATIENT VISIT, EST SYST BP LT 130 MM HG DIAST BP 80-89 MM HG WEIGHT RECORDED BODY MASS INDEX DOCD Esketamine, nasal spray [facility] SYST BP LT 130 MM HG DIAST BP 80-89 MM HG WEIGHT RECORDED BODY MASS INDEX DOCD SPECIMEN HANDLING NO CHARGE Drug Screening, UDS/BUP OFFICE/OUTPATIENT VISIT, EST SYST BP LT 130 MM HG DIAST BP < 80 MM HG WEIGHT RECORDED BODY MASS INDEX DOCD OFFICE/OUTPATIENT VISIT, EST SYST BP LT 130 MM HG DIAST BP < 80 MM HG WEIGHT RECORDED BODY MASS INDEX DOCD Esketamine, nasal spray [facility] SYST BP LT 130 MM HG DIAST BP < 80 MM HG WEIGHT RECORDED BODY MASS IN[facility] OFF[facility]/OUTPATIENT VISIT, EST SYST BP LT 130 MM HG DIAST BP < 80 MM HG WEIGHT RECORDED BODY MASS INDEX DOCD Esketamine, nasal spray [facility] SYST BP LT 130 MM HG DIAST BP < 80 MM HG WEIGHT RECORDED BODY MASS INDEX [facility] Esketamine, nasal spray [facility] SPECIMEN HANDLING NO CHARGE Drug Screening, UDS/BUP OFFICE/OUTPATIENT VISIT, EST SYST BP GE 130 - 139MM HG DIAST BP 80-89 MM HG WEIGHT RECORDED BODY MASS IN[facility] 30 Minutes SYST BP GE 130 - 139MM HG DIAST BP 80-89 MM HG WEIGHT RECORDED BODY MASS INDEX DOCD SPECIMEN HANDLING NO CHARGE Drug Screening, UDS/BUP OFFICE/OUTPATIENT VISIT, EST SYST BP GE 130 - 139MM HG DIAST BP < 80 MM HG WEIGHT RECORDED BODY MASS INDEX DOCD Esketamine, nasal spray [facility] SPECIMEN HANDLING NO CHARGE Drug Screening, UDS/BUP OFFICE/OUTPATIENT VISIT, EST SYST BP LT 130 MM HG DIAST BP < 80 MM HG WEIGHT RECORDED BODY MASS INDEX DOCD Esketamine, nasal spray [facility] OFFICE/OUTPATIENT VISIT, EST SYST BP LT 130 MM HG DIAST BP 80-89 MM HG WEIGHT RECORDED BODY MASS INDEX DOCD Esketamine, nasal spray [facility] Drug Screening, UDS/BUP OFFICE/OUTPATIENT VISIT, EST Esketamine, nasal spray [facility] Psychotherapy 30 Minutes SYST BP LT 130 MM HG DIAST BP 80-89 MM HG WEIGHT RECORDED BODY MASS INDEX DOC SPECIMEN HANDLING NO CHARGE Drug Screening, UDS/BUP OFFICE/OUTPATIENT VISIT, EST SYST BP LT 130 MM HG DIAST BP 80-89 MM HG WEIGHT RECORDED BODY MASS INDEX DOCD SPECIMEN HANDLING NO CHARGE Drug Screening, UDS/BUP OFFICE/OUTPATIENT VISIT, EST HEMOGLOBIN A1C LEVEL > 9.0% SYST BP LT 130 MM HG DIAST BP < 80 MM HG WEIGHT RECORDED BODY MASS INDEX DOCD Psychotherapy 30 Minutes SYST BP LT 130 MM HG DIAST BP < 80 MM HG WEIGHT RECORDED BODY MASS INDEX DOCD Drug Screening, UDS/BUP OFFICE/OUTPATIENT VISIT, EST SYST BP LT 130 MM HG DIAST BP < 80 MM HG WEIGHT RECORDED BODY MASS INDEX DOCD Psychotherapy 30 Minutes SYST BP LT 130 MM HG DIAST BP < 80 MM HG WEIGHT RECORDED BODY MASS INDEX DOCD URINALYSIS NONAUTO W/O SCOPE SPECIMEN HANDLING NO CHARGE Drug Screening, UDS/BUP OFFICE/OUTPATIENT VISIT, EST Psychotherapy 30 Minutes SPECIMEN HANDLING NO CHARGE Drug Screening, UDS/BUP OFFICE/OUTPATIENT VISIT, EST SYST BP LT 130 MM HG DIAST BP 80-89 MM HG WEIGHT RECORDED BODY MASS INDEX DOCD Psychotherapy 30 Minutes SYST BP LT 130 MM HG DIAST BP 80-89 MM HG WEIGHT RECORDED BODY MASS INDEX DOCD SPECIMEN HANDLING NO CHARGE Drug Screening, UDS/BUP OFFICE/OUTPATIENT VISIT, EST SYST BP LT 130 MM HG DIAST BP 80-89 MM HG WEIGHT RECORDED BODY MASS INDEX DOCD Psychotherapy 30 Minutes SYST BP LT 130 MM HG DIAST BP 80-89 MM HG WEIGHT RECORDED BODY MASS INDEX DOCD SPECIMEN HANDLING NO CHARGE Drug Screening, UDS/BUP OFFICE/OUTPATIENT VISIT, EST SYST BP LT 130 MM HG DIAST BP < 80 MM HG WEIGHT RECORDED BODY MASS INDEX DOCD Psychotherapy 30 Minutes SYST BP LT 130 MM HG DIAST BP < 80 MM HG WEIGHT RECORDED BODY MASS INDEX DOCD SPECIMEN HANDLING NO CHARGE Drug Screening, UDS/BUP OFFICE/OUTPATIENT VISIT, EST SYST BP GE 130 - 139MM HG DIAST BP 80-89 MM HG WEIGHT RECORDED BODY MASS INDEX DOCD OFFICE/OUTPATIENT VISIT, EST HEMOGLOBIN A1C LEVEL > 9.0% SYST BP GE 130 - 139MM HG DIAST BP 80-89 MM HG WEIGHT RECORDED BODY MASS INDEX DOCD Psychotherapy 30 Minutes SYST BP GE 130 - 139MM HG DIAST BP 80-89 MM HG WEIGHT RECORDED BODY MASS INDEX DOCD SPECIMEN HANDLING NO CHARGE Drug Screening, UDS/BUP OFFICE/OUTPATIENT VISIT, EST SYST BP LT 130 MM HG DIAST BP < 80 MM HG WEIGHT RECORDED BODY MASS INDEX DOCD Psychotherapy 30 Minutes SYST BP LT 130 MM HG DIAST BP < 80 MM HG WEIGHT RECORDED BODY MASS INDEX DOCD OFFICE/OUTPATIENT VISIT, EST HEMOGLOBIN A1C LEVEL > 9.0% SYST BP LT 130 MM HG DIAST BP < 80 MM HG WEIGHT RECORDED BODY MASS INDEX DOCD SPECIMEN HANDLING NO CHARGE Drug Screening, UDS/BUP OFFICE/OUTPATIENT VISIT, EST Psychotherapy 30 Minutes SPECIMEN HANDLING NO CHARGE Drug Screening, UDS/BUP OFFICE/OUTPATIENT VISIT, EST Psychotherapy 30 Minutes SPECIMEN HANDLING NO CHARGE Drug Screening, UDS/BUP OFFICE/OUTPATIENT VISIT, EST SPECIMEN HANDLING NO CHARGE Drug Screening, UDS/BUP OFFICE/OUTPATIENT VISIT, EST Psychotherapy 30 Minutes Drug Screening, UDS/BUP OFFICE/OUTPATIENT VISIT, EST Psychotherapy 30 Minutes OFFICE/OUTPATIENT VISIT, EST X-RAY EXAM CHEST 2 VIEWS OFFICE/OUTPATIENT VISIT, EST GLUC MONITOR, CONT, PHYS I&R SPECIMEN HANDLING NO CHARGE Drug Screening, UDS/BUP OFFICE/OUTPATIENT VISIT, EST GLUCOSE MONITORING, CONT OFFICE/OUTPATIENT VISIT, EST Psychotherapy 30 Minutes Brief Communication Virtual OFFICE/OUTPATIENT VISIT, EST Psychotherapy 30 Minutes *ROCEPHIN IM 1gm (4 Billing Units) *Solumedrol injection IM 125 Mg 023 THER/PROPH/DIAG INJ ADMIN FEE, SC/IM Oct THER/PROPH/DIAG INJ ADMIN FEE, SC/IM Oct COMPREHEN METABOLIC PANEL GLYCATED HEMOGLOBIN TEST OFFICE/OUTPATIENT VISIT, EST HEMOGLOBIN A1C LEVEL > 9.0% Drug Screening, UDS/BUP OFFICE/OUTPATIENT VISIT, EST SPECIMEN HANDLING NO CHARGE Drug Screening, UDS/BUP OFFICE/OUTPATIENT VISIT, EST Psychotherapy 30 Minutes SPECIMEN HANDLING NO CHARGE Drug Screening, UDS/BUP URINE TEST OFFICE/OUTPATIENT VISIT, EST Psychotherapy 30 Minutes SPECIMEN HANDLING NO CHARGE Drug Screening, UDS/BUP URINE TEST Drug Screening, UDS/BUP URINE TEST SPECIMEN HANDLING NO CHARGE SPECIMEN HANDLING NO CHARGE OFFICE/OUTPATIENT VISIT, EST Psychotherapy 30 Minutes OFFICE/OUTPATIENT VISIT, EST SPECIMEN HANDLING NO CHARGE OFFICE/OUTPATIENT VISIT, EST Psychotherapy 30 Minutes SPECIMEN HANDLING OFFICE/OUTPATIENT VISIT, EST Psychotherapy 30 Minutes OFFICE/OUTPATIENT VISIT, EST SPECIMEN HANDLING Drug Screening, UDS/BUP OFFICE/OUTPATIENT VISIT, EST Psychotherapy 30 Minutes SPECIMEN HANDLING Drug Screening, UDS/BUP OFFICE/OUTPATIENT VISIT, EST Psychotherapy 30 Minutes Drug Screening, UDS/BUP SPECIMEN HANDLING NO CHARGE Drug Screening, UDS/BUP OFFICE/OUTPATIENT VISIT, EST OFFICE/OUTPATIENT VISIT, EST Psychotherapy 30 Minutes Brief Communication Virtual OFFICE/OUTPATIENT VISIT, EST SPECIMEN HANDLING NO CHARGE Drug Screening, UDS/BUP COMPLETE CBC W/AUTO DIFF WBC VENIPUNCTURE ROUTINE ASSAY, TRIIODOTHYRONINE (T3) ASSAY OF IRON IRON BINDING TEST ASSAY THYROID STIM HORMONE ASSAY OF FREE THYROXINE ASSAY OF MAGNESIUM LIPID PANEL GLYCATED HEMOGLOBIN TEST COMPREHEN METABOLIC PANEL VITAMIN B-12 OFFICE/OUTPATIENT VISIT, EST Psychotherapy 30 Minutes OFFICE/OUTPATIENT VISIT, EST Psychotherapy, With Pt 45 Min Drug Screening, UDS/BUP OFFICE/OUTPATIENT VISIT, EST SPECIMEN HANDLING NO CHARGE Drug Screening, UDS/BUP OFFICE/OUTPATIENT VISIT, EST OFFICE/OUTPATIENT VISIT, EST Psychotherapy 30 Minutes SPECIMEN HANDLING NO CHARGE Drug Screening, UDS/BUP OFFICE/OUTPATIENT VISIT, EST Psychotherapy 60 Minutes Drug Screening, UDS/BUP SPECIMEN HANDLING NO CHARGE OFFICE/OUTPATIENT VISIT, EST Psychotherapy 30 Minutes Drug Screening, UDS/BUP SPECIMEN HANDLING NO CHARGE OFFICE/OUTPATIENT VISIT, EST Psych Diag Eval W/med Srvcx Psychotherapy 30 Minutes Drug Screening, UDS/BUP *Toradol 60 Mg IM 4 Units INJECTION ADMIN FEE WITH OFFICE VISIT Ju Cleocin 600mg IM 2 Units INJECTION ADMIN FEE WITH OFFICE VISIT Ju GLYCATED HEMOGLOBIN TEST COMPLETE CBC W/AUTO DIFF WBC LAB SH[facility]ON VENIPUNCTURE NO CHARGE 022 ASSAY, TRIIODOTHYRONINE (T3) ASSAY OF IRON IRON BINDING TEST ASSAY THYROID STIM HORMONE ASSAY OF FREE THYROXINE ASSAY OF MAGNESIUM LIPID PANEL COMPREHEN METABOLIC PANEL VITAMIN B-12 PREV VISIT, EST, AGE 40-64 OFFICE/OUTPATIENT VISIT, EST [facility] Visit Established Patient Psychotherapy 30 Minutes SPECIMEN HANDLING NO CHARGE Drug Screening, UDS/BUP OFFICE/OUTPATIENT VISIT, EST Psychotherapy 30 Minutes Drug Screening, UDS/BUP OFFICE/OUTPATIENT VISIT, EST Telehealth facility fee Psych Evaluation Brief Communication Virtual Drug Screening, UDS/BUP OFFICE/OUTPATIENT VISIT, EST MAT INDUCTION NO CHARGE MAT INDUCTION NO CHARGE Drug Screening, UDS/BUP OFFICE/OUTPATIENT VISIT, EST Psychotherapy 30 Minutes Drug Screening, UDS/BUP SPECIMEN HANDLING NO CHARGE MAT INDUCTION NO CHARGE OFFICE/OUTPATIENT VISIT, EST OFFICE/OUTPATIENT VISIT, NEW Advance Directives Directive Yes / No Effective Date File Name No Information Encounters Encounter Description Practice Location Reason(s) For Visit Diagnoses Date Provider Providers Copied on Encounter [facility], [address] [place] [address], [id number], [place] tel:[phone] [facility] No Information 4 Patito PMHNP-BC CARN-AP Meenakshi. [address] [place] [address], [id number], [place]. tel:[phone] OFFICE/OUTPATI ENT VISIT, EST [facility] [address] [place] [address], [id number], [place] tel:[phone] [facility] Neuropathy (chief complaint)s houlder pain (chief complaint) NeuropathyPa in, joint, shoulder, right 4 Dex Isaías. [address] [place] [address], [id number], [place]. tel:[phone] Referring Provider: Isaías Garner, [address] [place] [address], [id number]. tel:[phone] OFFICE[facility]OUTPATI [facility]ISIT, [facility], [address] [place] [address], [facility], [place] tel:[phone] [facility] Back pain (chief complaint) Body mass index (BMI) 33.0-33.9, adultDietary counseling and surveillance Prescribed Activity/Exe rcise CounselingNe uropathy 4 Dex Metz. [address] [place] [address], [id number], [place]. tel:[phone] Psychotherapy 30 Minutes [facility], [address] [place] [address], [facility], [place] tel:[phone] [facility] Bipolar affective disorder, currently depressed, moderateOpio id use disorder, moderate, dependenceOt her fpc (current) drug therapy 4 Stephen [facility] Naa. [address] [place] [address], [id number], [place]. tel:[phone] OFFICE/OUTPATI ENT VISIT, [facility], [address] [place] [address], [id number], [place] tel:[phone] [facility] Bipolar affective disorder, currently depressed, moderateOpio id use disorder, moderate, dependenceOt her rodent exterminator (current) drug therapy 4 Patito [facility] CARN-AP Meenakshi. [address] [place] [address], [id number], [place]. tel:[phone] Referring Provider: Meenakshi Caputo [facility] CARN-AP, [address] [place] [address], [id number]. tel:[phone] OFFICE/OUTPATI ENT VISIT, [facility], [address] [place] [address], Formerly [facility], tel:[phone] [facility] Back pain (chief complaint) Obesity, unspecifiedD ietary counseling and surveillance Prescribed Activity/Exe rcise CounselingNe uropathy 4 Dex Metz. [address] [place] [address], [id number], [place]. tel:[phone] Referring Provider: Isaías Garner, [address] [place] [address], [address]. tel:[phone] Psychotherapy 30 Minutes [place] [facility], [address] [place] [address], [facility]ly [facility], [place] tel:[phone] [facility] Bipolar affective disorder, currently depressed, moderateOpio id use disorder, moderate, dependenceOt her fpc (current) drug therapy 4 Stephen [facility] Naa. [address] [place] [address], [address] [place] [address], [place]. tel:[phone] OFFICE/OUTPATI ENT VISIT, [facility] [employer], [address] [place] [address], [address], [place] tel:[phone] [facility] Bipolar affective disorder, currently depressed, moderateOpio id use disorder, moderate, dependenceOt her rodent exterminator (current) drug therapy 4 [facility] Meenakshi. [address] [place] [address], [id number], [place]. tel:[phone] OFFICE/OUTPATI ENT VISIT, [facility] [employer], [address] [place] [address], [address], [place] tel:[phone] [facility] back pain (chief complaint) Body mass index (BMI) 33.0-33.9, adultDietary counseling and surveillance Prescribed Activity/Exe rcise CounselingNe uropathy 4 Dex Metz. [address] [place] [address], [id number], [place]. tel:[phone] Referring Provider: Isaías Garner [address] [place] [address], [address]. tel:[phone] Psychotherapy 30 Minutes [place] [facility], [address] [place] [address], [facility], [place] tel:[phone] [facility] Bipolar affective disorder, currently depressed, moderateOpio id use disorder, moderate, dependenceOt her rodent exterminator (current) drug therapy 4 [facility] Naa. [address] [place] [address], [address] [place] [address], [place]. tel:[phone] OFFICE/OUTPATI ENT VISIT, EST [place] [facility], [address] [place] [address], [facility]ly [facility], tel:[phone] [facility] Bipolar affective disorder, currently depressed, moderateOpio id use disorder, moderate, dependenceOt her rodent exterminator (current) drug therapy 4 Patito [facility] Meenakshi. [address] [place] [address], [address] [place] [address], [place]. tel:[phone] OFFICE/OUTPATI ENT VISIT, EST [place] [facility], [address] [place] [address], [facility], [place] tel:[phone] [facility] Bipolar affective disorder, currently depressed, moderateOpio id use disorder, moderate, dependenceOt her rodent exterminator (current) drug therapy 4 aPtito [facility] Meenakshi. [address] [place] [address], [id number], [place]. tel:[phone] Referring Provider: Meenakshi Caputo [facility], [address] [place] [address], [address]. tel:[phone] [place] [employer] [employer] [facility], [address] [place] [address], [facility], [place] tel:[phone] [facility] MAT Follow-up (chief complaint) Body mass index (BMI) 33.0-33.9, adultDietary counseling and surveillance Prescribed Activity/Exe rcise Counseling 4 Dex Isaías. [address] [place] [address], [id number], [place]. tel:[phone] OFFICE[facility]OUTPATI E[facility] VISIT, [facility], [address] [place] [address], [address], [place] tel:[phone] [facility] Back pain (chief complaint) Body mass index (BMI) 33.0-33.9, adultDietary counseling and surveillance Prescribed Activity/Exe rcise CounselingNe uropathy 4 Dex Isaías. [address] [place] [address], [id number], [place]. tel:[phone] Psychotherapy 30 Minutes [facility], [address] [place] [address], [address], [place] tel:[phone] [facility] Bipolar affective disorder, currently depressed, moderateOpio id use disorder, moderate, dependenceOt her rodent exterminator (current) drug therapy [address] [facility] Naa. [address] [place] [address], [id number], [place]. tel:[phone] OFFICE/OUTPATI ENT VISIT, [facility], [address] [place] [address], [address], [place] tel:[phone] [facility] Bipolar affective disorder, currently depressed, moderateOpio id use disorder, moderate, dependenceOt her rodent exterminator (current) drug therapy 4 Patito [facility] Meenakshi. [address] [place] [address], [id number], [place]. tel:[phone] Referring Provider: Meenakshi Caputo [facility], [address] [place] [address], [address]. tel:[phone] OFFICE/OUTPATI ENT VISIT, [facility], [address] [place] [address], [address], [place] tel:[phone] [facility] Neuropathy (chief complaint) Body mass index (BMI) 33.0-33.9, adultDietary counseling and surveillance Prescribed Activity/Exe rcise CounselingNe uropathy 4 Dex Isaías. [address] [place] [address], [address] [place] [address], . tel:[phone] OFFICE/OUTPATI ENT VISIT, [facility], [address] [place] [address], [facility]ly [facility], tel:[phone] [facility] Back pain (chief complaint) Neuropathy 4 Dex Isaías. [address] [place] [address], [address] [place] [address], [place]. tel:[phone] OFFICE/OUTPATI ENT VISIT, [facility], [address] [place] [address], [facility], tel:[phone] [facility] Bipolar affective disorder, currently depressed, moderateOpio id use disorder, moderate, dependenceOt her fpc (current) drug therapy 4 Patito [facility] Meenakshi. [address] [place] [address], [address] [place] [address], . tel:[phone] Referring Provider: Meenakshi Caputo [facility], [address] [place] [address], [address] [place] [address]. tel:[phone] Psychotherapy 30 Minutes [facility], [address] [place] [address], [facility], tel:[phone] [facility] Bipolar affective disorder, currently depressed, moderateOpio id use disorder, moderate, dependenceOt her rodent exterminator (current) drug therapy 4 Stephen [facility] Naa. [address] [place] [address], [address] [place] [address], . tel:[phone] OFFICE/OUTPATI ENT VISIT, [facility], [address] [place] [address], [facility], [place] tel:[phone] [facility] Bipolar affective disorder, currently depressed, moderateOpio id use disorder, moderate, dependenceOt her fpc (current) drug therapy 4 Patito [facility] Meenakshi. [address] [place] [address], [id number], . tel:[phone] OFFICE/OUTPATI ENT VISIT, [facility], [address] [place] [address], [facility], [place] tel:[phone] [facility] headache (chief complaint) Body mass index (BMI) 33.0-33.9, adultDietary counseling and surveillance Prescribed Activity/Exe rcise CounselingFr equent headaches 4 Dex Metz. [address] [place] [address], [address] [place] [address], [place]. tel:[phone] OFFICE/OUTPATI ENT VISIT, [facility], [address] [place] [address], [facility], [place] tel:[phone] [facility] Bipolar affective disorder, currently depressed, moderateOpio id use disorder, moderate, dependenceOt her fpc (current) drug therapyMajor depressive disorder, recurrent, moderate 4 [facility] Meenakshi. [address] [place] [address], [id number], [place]. tel:[phone] OFFICE/OUTPATI ENT VISIT, [facility], [address] [place] [address], [facility], [place] tel:[phone] [facility] MAT Induction (chief complaint) Bipolar affective disorder, currently depressed, moderateOpio id use disorder, moderate, dependenceOt her rodent exterminator (current) drug therapy 4 Patito [facility] Meenakshi. [address] [place] [address], [id number], [place]. tel:[phone] Referring Provider: Meenakshi Caputo [facility], [address] [place] [address], [address]. tel:[phone] Psychotherapy 30 Minutes [place] [facility], [address] [place] [address], [address], [place] tel:[phone] [facility] Bipolar affective disorder, currently depressed, moderateOpio id use disorder, moderate, dependenceOt her fpc (current) drug therapy 4 White [facility] Naa. [address] [place] [address], [id number], [place]. tel:[phone] OFFICE/OUTPATI ENT VISIT, EST [place] [facility], [address] [place] [address], [address], [place] tel:[phone] [facility] Bipolar affective disorder, currently depressed, moderateOpio id use disorder, moderate, dependenceOt her rodent exterminator (current) drug therapy 3 [facility] Meenakshi. [address] [place] [address], [id number], [place]. tel:[phone] Referring Provider: Meenakshi Caputo [facility], [address] [place] [address], [address]. tel:[phone] [place] [facility], [address] [place] [address], [address], [place] tel:[phone] [facility] Bipolar affective disorder, currently depressed, moderateOpio id use disorder, moderate, dependenceOt her rodent exterminator (current) drug therapy 3 [facility] Meenakshi. [address] [place] [address], [id number], [place]. tel:[phone] [place] [facility], [address] [place] [address], [address], [place] tel:[phone] [facility] Bipolar affective disorder, currently depressed, moderateOpio id use disorder, moderate, dependenceOt her rodent exterminator (current) drug therapyMajor depressive disorder, recurrent, moderateNeed for community resource 3 Gabrielle Hameed. [address] [place] [address], [id number], [place]. tel:[phone] OFFICE/OUTPATI ENT VISIT, [facility], [address] [place] [address], [address], [place] tel:[phone] [facility] Bipolar affective disorder, currently depressed, moderateOpio id use disorder, moderate, dependenceOt her rodent exterminator (current) drug therapyMajor depressive disorder, recurrent, moderate Nov-0 9- 3 Patito [facility] Meenakshi. [address] [place] [address], [id number], [place]. tel:[phone] Referring Provider: Meenakshi Caputo [facility], [address] [place] [address], [address]. tel:[phone] Psychotherapy 30 Minutes [place] [facility], [address] [place] [address], [facility], [place] tel:[phone] [facility] Bipolar affective disorder, currently depressed, moderateOpio id use disorder, moderate, dependenceOt her fpc (current) drug therapyMajor depressive disorder, recurrent, moderate Nov-0 9- 3 Stephen [facility] Naa. [address] [place] [address], [id number], [place]. tel:[phone] OFFICE/OUTPATI ENT VISIT, [facility] [employer] [facility], [address] [place] [address], [address], [place] tel:[phone] [facility] Bipolar affective disorder, currently depressed, moderateOpio id use disorder, moderate, dependenceOt her fpc (current) drug therapyMajor depressive disorder, recurrent, moderate Nov-0 - 3 Patito [facility] Meenakshi. [address] [place] [address], [id number], [place]. tel:[phone] OFFICE/OUTPATI ENT VISIT, [facility], [address] [place] [address], [address], [place] tel:[phone] [facility] Other fpc (current) drug therapyBipol ar affective disorder, currently depressed, moderateOpio id use disorder, moderate, dependence Nov-0 - 3 [facility] Meenakshi. [address] [place] [address], [id number], . tel:[phone] Referring Provider: Meenakshi Caputo [facility], [address] [place] [address], [address]. tel:[phone] Psychotherapy 30 Minutes [place] [employer], [address] [place] [address], [facility], [place] tel:[phone] [facility] Other fpc (current) drug therapyOpioi d use disorder, moderate, dependenceBi polar affective disorder, currently depressed, moderate Nov-0 3 White [facility]. [address] [place] [address], [id number], [place]. tel:[phone] OFFICE/OUTPATI ENT VISIT, EST [place] [employer], [address] [place] [address], [facility], [place] tel:[phone] [facility] MAT Follow-up (chief complaint) Body mass index (BMI) 34.0-34.9, adultDietary counseling and surveillance Prescribed Activity/Exe rcise CounselingNe uropathyOpio id use disorder, moderate, dependence 3 Dex Metz. [address] [place] [address], [id number], . tel:[phone] Referring Provider: Isaías Garner, [address] [place] [address], [address]. tel:[phone] Psychotherapy, With Pt 45 Min [place] [employer], [address] [place] [address], [facility], [place] tel:[phone] [facility] Major depressive disorder, recurrent, moderateOpio id use disorder, moderate, dependence 3 White [facility]. [address] [place] [address], [id number], [place]. tel:[phone] OFFICE/OUTPATI ENT VISIT, [facility] [employer], [address] [place] [address], [address], [place] tel:[phone] [facility] Major depressive disorder, recurrent, moderateOpio id use disorder, moderate, dependence 3 [facility] Meenakshi. [address] [place] [address], [id number], [place]. tel:[phone] OFFICE/OUTPATI ENT VISIT, [facility] [employer], [address] [place] [address], [address], [place] tel:[phone] [facility] cough (chief complaint) Obesity, unspecifiedD ietary counseling and surveillance Prescribed Activity/Exe rcise CounselingAc dry creek bronchitis, unspecified organism 3 Bessy Steele. [address] [place] [address], [id number], [place]. tel:[phone] OFFICE/OUTPATI ENT VISIT, [facility] [employer], [address] [place] [address], [address], [place] tel:[phone] [facility] diabetes (chief complaint) Body mass index (BMI) 34.0-34.9, adultDietary counseling and surveillance Prescribed Activity/Exe rcise CounselingTy pe 2 diabetes mellitus with hyperglycemi a, with long-term current use of insulin 3 Reece Hastings. [address] [place] [address], [id number], [place]. tel:[phone] [place] [employer], [address] [place] [address], [address], [place] tel:[phone] [facility] diabetes (chief complaint) Body mass index (BMI) 34.0-34.9, adultDietary counseling and surveillance Prescribed Activity/Exe rcise Counseling 3 Reece Darling. [address] [place] [address], [id number], [place]. tel:[phone] Psychotherapy 30 Minutes [place] [employer], [address] [place] [address], [address], [place] tel:[phone] [facility] Major depressive disorder, recurrent, moderateOpio id use disorder, moderate, dependence 3 [facility] Naa. [address] [place] [address], [id number], [place]. tel:[phone] OFFICE/OUTPATI ENT VISIT, [facility], [address] [place] [address], [address], [place] tel:[phone] [facility] Major depressive disorder, recurrent, moderateOpio id use disorder, moderate, dependence 3 Patito [facility] Meenakshi. [address] [place] [address], [id number], [place]. tel:[phone] Referring Provider: Meenakshi Caputo [facility], [address] [place] [address], [address] [place] [address]. tel:[phone] Psychotherapy 30 Minutes [place] [facility] [employer] [facility] [facility], [address] [place] [address], [address], [place] tel:[phone] [facility] Major depressive disorder, recurrent, moderateOpio id use disorder, moderate, dependence 3 [facility]. [address] [place] [address], [id number], [place]. tel:[phone] OFFICE/OUTPATI ENT VISIT, [facility] [employer] [facility], [address] [place] [address], [address], [place] tel:[phone] [facility] Major depressive disorder, recurrent, moderateOpio id use disorder, moderate, dependence 3 Patito [facility] Meenakshi. [address] [place] [address], [id number], [place]. tel:[phone] Referring Provider: Meenakshi Caputo [facility], [address] [place] [address], [address]. tel:[phone] OFFICE/OUTPATI ENT VISIT, EST [place] [facility], [address] [place] [address], [address], [place] tel:[phone] [facility] Major depressive disorder, recurrent, moderateOpio id use disorder, moderate, dependence Sep-2 3 [facility] Meenakshi. [address] [place] [address], [id number], [place]. tel:[phone] Psychotherapy 30 Minutes [facility], [address] [place] [address], [address], [place] tel:[phone] [facility] Major depressive disorder, recurrent, moderateOpio id use disorder, moderate, dependence Sep-2 3 Stephen [facility] Naa. [address] [place] [address], [id number], [place]. tel:[phone] OFFICE/OUTPATI ENT VISIT, EST [place] [facility], [address] [place] [address], [facility], [place] tel:[phone] [facility] Major depressive disorder, recurrent, moderateOpio id use disorder, moderate, dependence Sep-0 3 Patito [facility] Meenakshi. [address] [place] [address], [id number], [place]. tel:[phone] Referring Provider: Meenakshi Caputo [facility], [address] [place] [address], [address]. tel:[phone] Psychotherapy 30 Minutes [place] [facility], [address] [place] [address], [address], [place] tel:[phone] [facility] Major depressive disorder, recurrent, moderateOpio id use disorder, moderate, dependence Sep-0 3 Stephen [facility] Naa. [address] [place] [address], [id number], [place]. tel:[phone] [facility], 15 Min [facility], [address] [place] [address], [address], [place] tel:[phone] [facility] Major depressive disorder, recurrent, moderate May- 3 Nurses Nurse. . Consulting Provider: Nurse Only. OFFICE/OUTPATI ENT VISIT, [facility], [address] [place] [address], [address], [place] tel:[phone] [facility] Back pain (chief complaint) Obesity, unspecifiedD ietary counseling and surveillance Prescribed Activity/Exe rcise CounselingNe uropathy 3 Dex Isaías. [address] [place] [address], [id number], [place]. tel:[phone] Psychotherapy 30 Minutes [facility], [address] [place] [address], [address], [place] tel:[phone] [facility] Major depressive disorder, recurrent, moderateOpio id use disorder, moderate, dependence 3 [facility] Naa. [address] [place] [address], [id number], [place]. tel:[phone] OFFICE/OUTPATI ENT VISIT, [facility], [address] [place] [address], [address], [place] tel:[phone] [facility] Major depressive disorder, recurrent, moderateOthe r fpc (current) drug therapy 3 Patito [facility] Meenakshi. [address] [place] [address], [id number], [place]. tel:[phone] Referring Provider: Meenakshi Caputo [facility], [address] [place] [address], [address]. tel:[phone] PROLONG CLINCL STA[facility], [address] [place] [address], [address], [place] tel:[phone] [facility] Major depressive disorder, recurrent, moderate 3 Nurses Nurse. . Consulting Provider: Nurse Only. OFFICE/OUTPATI ENT VISIT, [facility], [address] [place] [address], [facility], tel:[phone] [facility] MAT Follow-up (chief complaint)a bdominal pain (chief complaint)d epression (chief complaint)b ack pain (chief complaint) Body mass index (BMI) 34.0-34.9, adultDietary counseling and surveillance Prescribed Activity/Exe rcise CounselingGe neralized abdominal painOpioid use disorder, moderate, dependenceMa tico depressive disorder, recurrent, moderateNeur opathy 3 Dex Metz. [address] [place] [address], [address] [place] [address], [place]. tel:[phone] Referring Provider: Isaías Garner, [address] [place] [address], [address] [place] [address]. tel:[phone] PROLONG CLINCL STAFF [facility], [address] [place] [address], [facility], tel:[phone] [facility] Major depressive disorder, recurrent, moderate 3 Nurses Nurse. . Consulting Provider: Nurse Only. OFFICE/OUTPATI ENT VISIT, [facility], [address] [place] [address], [facility], [place] tel:[phone] [facility] Major depressive disorder, recurrent, moderateOpio id use disorder, moderate, dependenceDi etary counseling and surveillance Obesity, unspecifiedP rescribed Activity/Exe rcise CounselingDi etary counseling and surveillance Prescribed Activity/Exe rcise Counseling 3 Patito [facility] Meenakshi. [address] [place] [address], [id number], [place]. tel:[phone] Referring Provider: Meenakshi Caputo [facility], [address] [place] [place] [address], [address] [place] [address]. tel:[phone] PROLONG CLINCL STAFF [facility], [address] [place] [address], [facility], [place] tel:[phone] [facility] Major depressive disorder, recurrent, moderate Apr-0 3 Nurses Nurse. . Consulting Provider: Nurse Only. Psychotherapy 30 Minutes [facility], [address] [place] [address], [id number], [place] tel:[phone] [facility] Major depressive disorder, recurrent, moderateObes ity, unspecifiedD ietary counseling and surveillance Prescribed Activity/Exe rcise CounselingOp ioid use disorder, moderate, dependence Apr-0 3 Stephen [facility] Naa. [address] [place] [address], [id number], [place]. tel:[phone] OFFICE[facility], [facility], [address] [place] [address], [facility], [place] tel:[phone] [facility] Major depressive disorder, recurrent, moderateObes ity, unspecifiedD ietary counseling and surveillance Prescribed Activity/Exe rcise Counseling Apr-0 3 [facility] CARN- Meenakshi. [address] [place] [address], [address] [place] [address], [place]. tel:[phone] PROLONG CLINCL STAFF [facility], [address] [place] [address], [address], [place] tel:[phone] [facility] Major depressive disorder, recurrent, moderate Apr-0 3 Nurses Nurse. . Consulting Provider: Nurse Only. OFFICE[facility]PAT[facility]ISIT, [facility], [address] [place] [address], [address], [place] tel:[phone] [facility] abdominal pain (chief complaint) Body mass index (BMI) 34.0-34.9, adultDietary counseling and surveillance Prescribed Activity/Exe rcise CounselingGe neralized abdominal pain 3 Dex Isaías. [address] [place] [address], [id number], [place]. tel:[phone] OFFICE/[facility]PATI [facility] VISIT, [facility], [address] [place] [address], [facility], tel:[phone] [facility] Major depressive disorder, recurrent, moderate Mar- 3 Patito [facility] Meenakshi. [address] [place] [address], [id number], . tel:[phone] Referring Provider: Meenakshi Caputo [facility], [address] [place] [address], [address] [place] [address]. tel:[phone] PROLONG CLINCL STAFF [facility], [address] [place] [address], [facility], tel:[phone] [facility] Major depressive disorder, recurrent, moderate Mar- 3 Nurses Nurse. . Consulting Provider: Nurse Only. PROLONG CLINCL STAFF [facility], [address] [place] [address], [facility], tel:[phone] [facility] Major depressive disorder, recurrent, moderate Mar- 3 Nurses Nurse. . OFFICE/OUTPATI ENT VISIT, [facility], [address] [place] [address], [facility], [place] tel:[phone] [facility] Major depressive disorder, recurrent, moderate Mar- 3 Patito [facility] Meenakshi. [address] [place] [address], [id number], [place]. tel:[phone] OFFICE/OUTPATI ENT VISIT, [facility], [address] [place] [address], [address], [place] tel:[phone] [facility] Major depressive disorder, recurrent, moderate Mar- 3 Patito [facility] Meenakshi. [address] [place] [address], [id number], [place]. tel:[phone] Referring Provider: [facility], [address] [place] [address], [id number]. tel:[phone] PROLONG CLINCL STAFF [facility], [address] [place] [address], [address], [place] tel:[phone] [facility] Major depressive disorder, recurrent, moderate 3 Nurses Nurse. . OFFICE/OUTPATI ENT VISIT, [facility], [address] [place] [address], [address], [place] tel:[phone] [facility] Major depressive disorder, recurrent, moderate 0 3 [facility] Meenakshi. [address] [place] [address], [id number], . tel:[phone] PROLONG CLINCL STAFF [facility], [address] [place] [address], [facility], [place] tel:[phone] [facility] Major depressive disorder, recurrent, moderate 0 3 Nurses Nurse. . OFFICE/OUTPATI ENT VISIT, [facility], [address] [place] [address], [address], [place] tel:[phone] [facility] MAT Follow-up (chief complaint)C ough (chief complaint) Body mass index (BMI) 35.0-35.9, adultDietary counseling and surveillance Prescribed Activity/Exe rcise CounselingOp ioid use disorder, moderate, dependenceUR I, acute 3 Dex Metz. [address] [place] [address], [id number], [place]. tel:[phone] Referring Provider: Isaías Garner, [address] [place] [address], [id number]. tel:[phone] OFFICE/OUTPATI ENT VISIT, [facility], [address] [place] [address], [address], [place] tel:[phone] [facility] SPRAVATO (chief complaint) Major depressive disorder, recurrent, moderate 3 Dex Strangei. [address] [place] [address], [id number], [place]. tel:[phone] PROLONG CLINCL STAFF [facility], [address] [place] [address], [facility], [place] tel:[phone] [facility] Major depressive disorder, recurrent, moderate 3 Nurses Nurse. . OFFICE/OUTPATI ENT VISIT, [facility], [address] [place] [address], [facility], [place] tel:[phone] [facility] Major depressive disorder, recurrent, moderate 3 Patito [facility] C[facility] Meenakshi. [address] [place] [address], [address] [place] [address], [place]. tel:[phone] PROLONG CLINCL STAFF [facility], [address] [place] [address], [facility], [place] tel:[phone] [facility] Episode of recurrent major depressive disorder, unspecified depression episode severity 3 Nurses Nurse. . PROLONG CLINCL STAFF [facility], [address] [place] [address], [facility], [place] tel:[phone] [facility] Episode of recurrent major depressive disorder, unspecified depression episode severity 3 Nurses Nurse. . OFFICE/OUTPATI ENT VISIT, [facility], [address] [place] [address], [facility], [place] tel:[phone] [facility] Major depressive disorder, recurrent, moderateOpio id use disorder, moderate, dependenceOt her rodent exterminator (current) drug therapyBody mass index (BMI) 34.0-34.9, adultPrescri bed Activity/Exe rcise CounselingOb esity, unspecifiedD ietary counseling and surveillance 3 Patito [facility] Meenakshi. [address] [place] [address], [address] [place] [address], . tel:[phone] Referring Provider: Meenakshi Caputo [facility], [address] [place] [address], [address] [place] [address]. tel:[phone] Psychotherapy 30 Minutes [facility], [address] [place] [address], [facility], tel:[phone] [facility] Major depressive disorder, recurrent, moderateOpio id use disorder, moderate, dependenceOt her rodent exterminator (current) drug therapyBody mass index (BMI) 34.0-34.9, adultPrescri bed Activity/Exe rcise CounselingOb esity, unspecifiedD ietary counseling and surveillance 3 Stephen [facility] Naa. [address] [place] [address], [address] [place] [address], . tel:[phone] PROLONG CLINCL STAFF [facility], [address] [place] [address], [facility], tel:[phone] [facility] Major depressive disorder, recurrent, moderate 3 Nurses Nurse. . OFFICE/OUTPATI ENT VISIT, [facility], [address] [place] [address], [facility], tel:[phone] [facility] Major depressive disorder, recurrent, moderateOpio id use disorder, moderate, dependenceOt her rodent exterminator (current) drug therapyBody mass index (BMI) 34.0-34.9, adultObesity , unspecifiedP rescribed Activity/Exe rcise CounselingDi etary counseling and surveillance 3 Patito [facility] Meenakshi. [address] [place] [address], [id number], . tel:[phone] Referring Provider: Meenakshi Caputo [facility], [address] [place] [address], [id number]. tel:[phone] OFFICE/OUTPATI ENT VISIT, [facility], [address] [place] [address], [facility], tel:[phone] [facility] Opioid use disorder, moderate, dependenceOt her fpc (current) drug therapyBody mass index (BMI) 34.0-34.9, adultDietary counseling and surveillance Obesity, unspecifiedP rescribed Activity/Exe rcise CounselingNm tico depressive disorder, recurrent, moderate 3 [facility] Meenakshi. [address] [place] [address], [address] [place] [address], [place]. tel:[phone] Referring Provider: [facility], [address] [place] [address], [address] [place] [address]. tel:[phone] PROLONG CLINCL STAFF [facility], [address] [place] [address], [facility], tel:[phone] [facility] Major depressive disorder, recurrent, moderate 3 Nurses Nurse. . OFFICE/OUTPATI ENT VISIT, [facility], [address] [place] [address], [facility], [place] tel:[phone] [facility] Bipolar affective disorder, currently depressed, moderateOpio id use disorder, moderate, dependenceOt her rodent exterminator (current) drug therapyBody mass index (BMI) 34.0-34.9, adultDietary counseling and surveillance Obesity, unspecifiedP rescribed Activity/Exe rcise Counseling 3 [facility] Meenakshi. [address] [place] [address], [id number], [place]. tel:[phone] PROLONG CLINCL STAFF [facility], [address] [place] [address], [facility], tel:[phone] [facility] Episode of recurrent major depressive disorder, unspecified depression episode severity 3 Nurses Nurse. . Consulting Provider: Nurse Only. OFFICE/OUTPATI ENT VISIT, [facility], [address] [place] [address], [facility], tel:[phone] [facility] Bipolar affective disorder, currently depressed, moderateOpio id use disorder, moderate, dependenceOt her fpc (current) drug therapyBody mass index (BMI) 34.0-34.9, adultObesity , unspecifiedP rescribed Activity/Exe rcise CounselingDi etary counseling and surveillance 3 [facility] Meenakshi. [address] [place] [address], [address] [place] [address], . tel:[phone] Referring Provider: Meenakshi Caputo [facility], [address] [place] [address], [address] [place] [address]. tel:[phone] PROLONG CLINCL STAFF [facility], [address] [place] [address], [facility], tel:[phone] [facility] Major depressive disorder, recurrent, moderate 3 Nurses Nurse. . Consulting Provider: Nurse Only. [facility], [address] [place] [address], [facility], tel:[phone] [facility] Bipolar affective disorder, currently depressed, moderateOpio id use disorder, moderate, dependenceOt her rodent exterminator (current) drug therapyBody mass index (BMI) 34.0-34.9, adultObesity , unspecifiedP rescribed Activity/Exe rcise CounselingDi etary counseling and surveillance 3 Stephen [facility] Naa. [address] [place] [address], [id number], [place]. tel:[phone] Psychotherapy 30 Minutes [facility], [address] [place] [address], [facility], tel:[phone] [facility] Bipolar affective disorder, currently depressed, moderateOpio id use disorder, moderate, dependenceOt her fpc (current) drug therapyBody mass index (BMI) 34.0-34.9, adultObesity , unspecifiedP rescribed Activity/Exe rcise CounselingDi etary counseling and surveillance [address] [facility] Naa. [address] [place] [address], [id number], [place]. tel:[phone] OFFICE/OUTPATI ENT VISIT, [facility], [address] [place] [address], [facility], [place] tel:[phone] [facility] Opioid use disorder, moderate, dependenceOt her fpc (current) drug therapyBody mass index (BMI) 34.0-34.9, adultObesity , unspecifiedP rescribed Activity/Exe rcise CounselingDi etary counseling and surveillance Major depressive disorder, recurrent, moderate 3 Patito [facility] Meenakshi. [address] [place] [address], [id number], [place]. tel:[phone] Referring Provider: Meenakshi Caputo [facility], [address] [place] [address], [address]. tel:[phone] OFFICE/OUTPATI ENT VISIT, EST [facility], [address] [place] [address], [facility], [place] tel:[phone] [facility] MAT Follow-up (chief complaint) Obesity, unspecifiedD ietary counseling and surveillance Prescribed Activity/Exe rcise CounselingTy pe 2 diabetes mellitus with hyperglycemi a, with long-term current use of insulinOpioi d use disorder, moderate, dependence 3 Nash Hernandez. [address] [place] [address], [id number], [place]. tel:[phone] Referring Provider: Mary Cao, [address] [place] [address], [address]. tel:[phone] Psychotherapy 30 Minutes [facility], [address] [place] [address], [facility], [place] tel:[phone] [facility] Bipolar affective disorder, currently depressed, moderateOpio id use disorder, moderate, dependenceOt her fpc (current) drug therapyBody mass index (BMI) 34.0-34.9, adultDietary counseling and surveillance Prescribed Activity/Exe rcise CounselingOb esity, unspecified Rocky-0 3 [facility]. [address] [place] [address], [id number], . tel:[phone] OFFICE/OUTPATI ENT VISIT, EST [facility], [address] [place] [address], [facility], tel:[phone] [facility] MAT Follow-up (chief complaint)d ysuria (chief complaint) Other rodent exterminator (current) drug therapyBody mass index (BMI) 33.0-33.9, adultDietary counseling and surveillance Prescribed Activity/Exe rcise CounselingOp ioid use disorder, moderate, dependenceAc dry creek UTI 3 Dex Metz. [address] [place] [address], [id number], . tel:[phone] Referring Provider: Mary Cao, [address] [place] [address], [address]. tel:[phone] Psychotherapy 30 Minutes [facility], [address] [place] [address], [facility], tel:[phone] [facility] Bipolar affective disorder, currently depressed, moderateOpio id use disorder, moderate, dependenceOt her rodent exterminator (current) drug therapyBody mass index (BMI) 34.0-34.9, adultObesity , unspecifiedD ietary counseling and surveillance Prescribed Activity/Exe rcise Counseling 3 [facility]. [address] [place] [address], [id number], [place]. tel:[phone] [facility], [address] [place] [address], [address], [place] tel:[phone] [facility] No Information 3 Bernie Bain. [address] [place] [address], [id number], [place]. tel:[phone] Referring Provider: Isaías Garner [address] [place] [address], [address]. tel:[phone] lting Provider: WB Lab Only. OFFICE/OUTPATI ENT VISIT, [facility], [address] [place] [address], [facility], tel:[phone] [facility] MAT Follow-up (chief complaint) Bipolar affective disorder, currently depressed, moderateOpio id use disorder, moderate, dependenceOt her fpc (current) drug therapyBody mass index (BMI) 33.0-33.9, adultBody mass index (BMI) 34.0-34.9, adultObesity , unspecifiedD ietary counseling and surveillance Prescribed Activity/Exe rcise Counseling 3 Patito [facility] Meenakshi. [address] [place] [address], [id number], . tel:[phone] Referring Provider: Meenakshi Caputo [facility] C[facility], [address] [place] [address], [address]. tel:[phone] Psychotherapy 30 Minutes [facility], [address] [place] [address], [facility], tel:[phone] [facility] Bipolar affective disorder, currently depressed, moderateOpio id use disorder, moderate, dependenceOt her fpc (current) drug therapyBody mass index (BMI) 34.0-34.9, adultObesity , unspecifiedD ietary counseling and surveillance Prescribed Activity/Exe rcise Counseling 3 Stephen [facility] Naa. [address] [place] [address], [id number], [place]. tel:[phone] OFFICE/OUTPATI ENT VISIT, [facility], [address] [place] [address], [facility], tel:[phone] [facility] Bipolar affective disorder, currently depressed, moderateOpio id use disorder, moderate, dependenceOt her rodent exterminator (current) drug therapyBody mass index (BMI) 33.0-33.9, adultBody mass index (BMI) 34.0-34.9, adultPrescri bed Activity/Exe rcise CounselingOb esity, unspecifiedD ietary counseling and surveillance 3 Patito [facility] ROSEANNA Arrieta. [address] [place] [address], [id number], . tel:[phone] Referring Provider: Meenakshi Caputo [facility], [address] [place] [address], [address] [place] [address]. tel:[phone] Psychotherapy 30 Minutes [facility], [address] [place] [address], [facility], [place] tel:[phone] [facility] Bipolar affective disorder, currently depressed, moderateOpio id use disorder, moderate, dependenceOt her rodent exterminator (current) drug therapyBody mass index (BMI) 34.0-34.9, adultPrescri bed Activity/Exe rcise CounselingOb esity, unspecifiedD ietary counseling and surveillance 3 Stephen [facility] Naa. [address] [place] [address], [id number], [place]. tel:[phone] OFFICE/OUTPATI ENT VISIT, EST [facility], [address] [place] [address], [facility], tel:[phone] [facility] Bipolar affective disorder, currently depressed, moderateOpio id use disorder, moderate, dependenceOt her rodent exterminator (current) drug therapyBody mass index (BMI) 33.0-33.9, adultBody mass index (BMI) 34.0-34.9, adultPrescri bed Activity/Exe rcise CounselingDi etary counseling and surveillance Obesity, unspecifiedD ietary counseling and surveillance Prescribed Activity/Exe rcise Counseling 3 Patito [facility] ABHIALEXY Arrieta. [address] [place] [address], [id number], [place]. tel:[phone] Referring Provider: Meenakshi Caputo [facility], [address] [place] [address], [id number]. tel:[phone] Psychotherapy 30 Minutes [facility], [address] [place] [address], [address], tel:[phone] [facility] Bipolar affective disorder, currently depressed, moderateOpio id use disorder, moderate, dependenceOt her rodent exterminator (current) drug therapyBody mass index (BMI) 34.0-34.9, adultPrescri bed Activity/Exe rcise CounselingDi etary counseling and surveillance Obesity, unspecified [address] [facility] Naa. [address] [place] [address], [id number], [place]. tel:[phone] OFFICE/OUTPATI ENT VISIT, EST [facility], [address] [place] [address], [facility], tel:[phone] [facility] Bipolar affective disorder, currently depressed, moderateOpio id use disorder, moderate, dependenceOt her rodent exterminator (current) drug therapyBody mass index (BMI) 33.0-33.9, adultBody mass index (BMI) 34.0-34.9, adultPrescri bed Activity/Exe rcise CounselingDi etary counseling and surveillance Obesity, unspecifiedD ietary counseling and surveillance Prescribed Activity/Exe rcise Counseling 3 Patito [facility] Meenakshi. [address] [place] [address], [id number], . tel:[phone] Referring Provider: Meenakshi Caputo [facility], [address] [place] [address], [address]. tel:[phone] Psychotherapy 30 Minutes [facility], [address] [place] [address], [address], [place] tel:[phone] [facility] Bipolar affective disorder, currently depressed, moderateOpio id use disorder, moderate, dependenceOt her rodent exterminator (current) drug therapyBody mass index (BMI) 34.0-34.9, adultObesity , unspecifiedD ietary counseling and surveillance Prescribed Activity/Exe rcise Counseling Apr- 3 [facility] Naa. [address] [place] [address], [id number], [place]. tel:[phone] OFFICE/OUTPATI ENT VISIT, [facility], [address] [place] [address], [facility], [place] tel:[phone] [facility] Bipolar affective disorder, currently depressed, moderateOpio id use disorder, moderate, dependenceOt her fpc (current) drug therapyBody mass index (BMI) 33.0-33.9, adultPrescri bed Activity/Exe rcise CounselingDi etary counseling and surveillance Body mass index (BMI) 34.0-34.9, adult Dec- 3 Patito [facility] Meenakshi. [address] [place] [address], [id number], . tel:[phone] Referring Provider: Meenakshi Caputo [facility], [address] [place] [address], [address] [place] [address]. tel:[phone] OFFICE/OUTPATI ENT VISIT, [facility], [address] [place] [address], [address], [place] tel:[phone] [facility] GERD (chief complaint)D iabetes (chief complaint) Obesity, unspecifiedD ietary counseling and surveillance Prescribed Activity/Exe rcise CounselingEs sential hypertension Type 2 diabetes mellitus with hyperglycemi a, with long-term current use of insulinGERD without esophagitis 3 Nash Hernandez. [address] [place] [address], [id number], [place]. tel:[phone] Psychotherapy 30 Minutes [facility], [address] [place] [address], [id number], [place] tel:[phone] [facility] Bipolar affective disorder, currently depressed, moderateOpio id use disorder, moderate, dependenceOt her fpc (current) drug therapyPresc ribed Activity/Exe rcise CounselingDi etary counseling and surveillance Body mass index (BMI) 34.0-34.9, adult Apr- 3 [facility] Naa. [address] [place] [address], [id number], [place]. tel:[phone] OFFICE/OUTPATI E[facility] VISIT, [facility], [address] [place] [address], [id number], [place] tel:[phone] [facility] Bipolar affective disorder, currently depressed, moderateOpio id use disorder, moderate, dependenceOt her rodent exterminator (current) drug therapyBody mass index (BMI) 33.0-33.9, adultPrescri bed Activity/Exe rcise CounselingDi etary counseling and surveillance Body mass index (BMI) 34.0-34.9, adultDietary counseling and surveillance Prescribed Activity/Exe rcise CounselingNe uropathy Dec- 3 [facility] Meenakshi. [address] [place] [address], [id number], [place]. tel:[phone] Referring Provider: Meenakshi Caputo [facility], [address] [place] [address], [address] [place] [address]. tel:[phone] Psychotherapy 30 Minutes [facility], [address] [place] [address], [facility], [place] tel:[phone] [facility] Bipolar affective disorder, currently depressed, moderateOpio id use disorder, moderate, dependenceOt her fpc (current) drug therapyBody mass index (BMI) 33.0-33.9, adultPrescri bed Activity/Exe rcise CounselingDi etary counseling and surveillance 3 [facility]. [address] [place] [address], [id number], [place]. tel:[phone] OFFICE/OUTPATI ENT VISIT, [facility], [address] [place] [address], [address], [place] tel:[phone] [facility] Diabetes (chief complaint) Dietary counseling and surveillance Prescribed Activity/Exe rcise CounselingBo dy mass index (BMI) 34.0-34.9, adultType 2 diabetes mellitus with hyperglycemi a, with long-term current use of insulin Dec-0 3 Reece Hastings. [address] [place] [address], [id number], . tel:[phone] OFFICE/OUTPATI ENT VISIT, [facility], [address] [place] [address], [facility], tel:[phone] [facility] Bipolar affective disorder, currently depressed, moderateOpio id use disorder, moderate, dependenceOt her fpc (current) drug therapyNeuro pathyBody mass index (BMI) 34.0-34.9, adultBody mass index (BMI) 33.0-33.9, adultPrescri bed Activity/Exe rcise CounselingDi etary counseling and surveillance 3 [facility]. [address] [place] [address], [id number], . tel:[phone] Referring Provider: Meenakshi Caputo [facility], [address] [place] [address], [id number]. tel:[phone] Psychotherapy 30 Minutes [facility], [address] [place] [address], [facility], [place] tel:[phone] [facility] Bipolar affective disorder, currently depressed, moderateOpio id use disorder, moderate, dependenceOt her fpc (current) drug therapyBody mass index (BMI) 33.0-33.9, adultPrescri bed Activity/Exe rcise CounselingDi etary counseling and surveillance 3 Stephen [facility] Naa. [address] [place] [address], [id number], [place]. tel:[phone] OFFICE/OUTPATI ENT VISIT, [facility], [address] [place] [address], [facility], [place] tel:[phone] [facility] Bipolar affective disorder, currently depressed, moderateOpio id use disorder, moderate, dependenceOt her fpc (current) drug therapyNeuro pathyBody mass index (BMI) 34.0-34.9, adultBody mass index (BMI) 33.0-33.9, adultDietary counseling and surveillance Prescribed Activity/Exe rcise Counseling 3 Patito [facility] ABHI-ALEXY Arrieta. [address] [place] [address], [address] [place] [address], . tel:[phone] Referring Provider: Meenakshi Caputo [facility] ROSE[facility]NA, [address] [place] [address], [address] [place] [address]. tel:[phone] Psychotherapy 30 Minutes [facility], [address] [place] [address], [facility], tel:[phone] [facility] Bipolar affective disorder, currently depressed, moderateOpio id use disorder, moderate, dependenceOt her fpc (current) drug therapyBody mass index (BMI) 33.0-33.9, adultDietary counseling and surveillance Prescribed Activity/Exe rcise Counseling 3 Stephen [facility] Naa. [address] [place] [address], [address] [place] [address], [place]. tel:[phone] OFFICE/OUTPATI ENT VISIT, EST [facility], [address] [place] [address], [facility], tel:[phone] [facility] Bipolar affective disorder, currently depressed, moderateOpio id use disorder, moderate, dependenceOt her rodent exterminator (current) drug therapyNeuro pathyBody mass index (BMI) 34.0-34.9, adultBody mass index (BMI) 33.0-33.9, adultPrescri bed Activity/Exe rcise CounselingDi etary counseling and surveillance Dietary counseling and surveillance Prescribed Activity/Exe rcise Counseling 3 Patito [facility] ABHI-ALEXY Arrieta. [address] [place] [address], [address] [place] [address], . tel:[phone] Referring Provider: Meenakshi Caputo [facility], [address] [place] [address], [address] [place] [address]. tel:[phone] OFFICE/OUTPATI ENT VISIT, [facility], [address] [place] [address], [facility], tel:[phone] [facility] Bipolar affective disorder, currently depressed, moderateOpio id use disorder, moderate, dependenceOt her fpc (current) drug therapyNeuro pathyBody mass index (BMI) 34.0-34.9, adultBody mass index (BMI) 33.0-33.9, adultDietary counseling and surveillance Prescribed Activity/Exe rcise CounselingDi etary counseling and surveillance Prescribed Activity/Exe rcise Counseling 3 Patito [facility] Meenakshi. [address] [place] [address], [id number], . tel:[phone] Referring Provider: Meenakshi Caputo [facility], [address] [place] [address], [address] [place] [address]. tel:[phone] Psychotherapy 30 Minutes [place] [facility], [address] [place] [address], [facility], tel:[phone] [facility] Bipolar affective disorder, currently depressed, moderateOpio id use disorder, moderate, dependenceOt her fpc (current) drug therapyNeuro pathyBody mass index (BMI) 33.0-33.9, adultDietary counseling and surveillance Prescribed Activity/Exe rcise Counseling 3 Stephen [facility]. [address] [place] [address], [id number], . tel:[phone] OFFICE/OUTPATI ENT VISIT, [facility], [address] [place] [address], [facility], tel:[phone] [facility] Bipolar affective disorder, currently depressed, moderateOpio id use disorder, moderate, dependenceOt her fpc (current) drug therapyNeuro pathyBody mass index (BMI) 34.0-34.9, adultPrescri bed Activity/Exe rcise CounselingDi etary counseling and surveillance Body mass index (BMI) 33.0-33.9, adult Fe- 3 [facility] Meenakshi. [address] [place] [address], [id number], [place]. tel:[phone] Referring Provider: Meenakshi Caputo [facility], [address] [place] [address], [id number]. tel:[phone] Psychotherapy 30 Minutes [place] [facility], [address] [place] [address], [address], [place] tel:[phone] [facility] Bipolar affective disorder, currently depressed, moderateOpio id use disorder, moderate, dependenceOt her rodent exterminator (current) drug therapyNeuro pathyPrescri bed Activity/Exe rcise CounselingDi etary counseling and surveillance Body mass index (BMI) 33.0-33.9, adult 3 Stephen [facility] Naa. [address] [place] [address], [id number], [place]. tel:[phone] OFFICE/OUTPATI ENT VISIT, EST [place] [facility] [facility], [address] [place] [address], [address], [place] tel:[phone] [facility] shortness of breath (chief complaint) Body mass index (BMI) 32.0-32.9, adultDietary counseling and surveillance Prescribed Activity/Exe rcise CounselingSh ortness of breath 3 Dex Metz. [address] [place] [address], [id number], [place]. tel:[phone] Referring Provider: Isaías Garner, [address] [place] [address], [id number]. tel:[phone] OFFICE/OUTPATI ENT VISIT, [facility] [employer] [facility], [address] [place] [address], [address], [place] tel:[phone] [facility] diabetes (chief complaint) Dietary counseling and surveillance Prescribed Activity/Exe rcise CounselingBo dy mass index (BMI) 32.0-32.9, adultType 2 diabetes mellitus with hyperglycemi a, with long-term current use of insulin 3 Reece Hastings. [address] [place] [address], [id number], [place]. tel:[phone] OFFICE/OUTPATI ENT VISIT, [facility], [address] [place] [address], [address], [place] tel:[phone] [facility] Bipolar affective disorder, currently depressed, moderateOpio id use disorder, moderate, dependenceOt her rodent exterminator (current) drug therapyNeuro pathyBody mass index (BMI) 34.0-34.9, adultPrescri bed Activity/Exe rcise CounselingDi etary counseling and surveillance Body mass index (BMI) 33.0-33.9, adultDietary counseling and surveillance Prescribed Activity/Exe rcise Counseling 3 Patito [facility] Meenakshi. [address] [place] [address], [id number], . tel:[phone] Referring Provider: Meenakshi Caputo [facility], [address] [place] [address], [id number]. tel:[phone] OFFICE/OUTPATI ENT VISIT, [facility], [address] [place] [address], [address], [place] tel:[phone] [facility] diabetes (chief complaint) Body mass index (BMI) 33.0-33.9, adultDietary counseling and surveillance Prescribed Activity/Exe rcise CounselingTy pe 2 diabetes mellitus with hyperglycemi a, with long-term current use of insulin 3 Reece Hastings. [address] [place] [address], [id number], [place]. tel:[phone] Psychotherapy 30 Minutes [facility], [address] [place] [address], [address], [place] tel:[phone] [facility] Bipolar affective disorder, currently depressed, moderateOpio id use disorder, moderate, dependenceOt her fpc (current) drug therapyNeuro pathyBody mass index (BMI) 33.0-33.9, adultDietary counseling and surveillance Prescribed Activity/Exe rcise Counseling 3 Stephen [facility]. [address] [place] [address], [id number], [place]. tel:[phone] [place] [employer] [facility], [address] [place] [address], [address], [place] tel:[phone] [facility] diabetes (chief complaint) Dietary counseling and surveillance Prescribed Activity/Exe rcise CounselingTy pe 2 diabetes mellitus with hyperglycemi a, with long-term current use of insulinBody mass index (BMI) 33.0-33.9, adult 3 Reece Hastings. [address] [place] [address], [id number], [place]. tel:[phone] Psychotherapy 30 Minutes [place] [facility], [address] [place] [address], [address], [place] tel:[phone] [facility] Bipolar affective disorder, currently depressed, moderateOpio id use disorder, moderate, dependenceOt her fpc (current) drug therapyNeuro pathyBody mass index (BMI) 34.0-34.9, adultDietary counseling and surveillance Prescribed Activity/Exe rcise Counseling 3 Stephen [facility]. [address] [place] [address], [id number], [place]. tel:[phone] OFFICE/OUTPATI ENT VISIT, EST [place] [facility], [address] [place] [address], [address], [place] tel:[phone] [facility] diabetes (chief complaint) Body mass index (BMI) 33.0-33.9, adultDietary counseling and surveillance Prescribed Activity/Exe rcise CounselingTy pe 2 diabetes mellitus with hyperglycemi a, with long-term current use of insulin 3 Reece Hastings. [address] [place] [address], [id number], [place]. tel:[phone] [place] [facility], [address] [place] [address], [address], [place] tel:[phone] [facility] Bronchitis, not specified as acute or chronic 3 Nurses Nurse. . Consulting Provider: Nurse Only. OFFICE/OUTPATI ENT VISIT, [facility], [address] [place] [address], [facility], tel:[phone] [facility] Cough (chief complaint)D iabetes (chief complaint) Body mass index (BMI) 33.0-33.9, adultDietary counseling and surveillance Prescribed Activity/Exe rcise CounselingBr onchitisType 2 diabetes mellitus with hyperglycemi a, with long-term current use of insulin 3 Nash Hernandez. [address] [place] [address], [id number], . tel:[phone] Referring Provider: Mary Cao, [address] [place] [address], [address] [place] [address]. tel:[phone] OFFICE/OUTPATI ENT VISIT, [facility], [address] [place] [address], [facility], tel:[phone] [facility] Bipolar affective disorder, currently depressed, moderateOpio id use disorder, moderate, dependenceOt her fpc (current) drug therapyBody mass index (BMI) 33.0-33.9, adultNeuropa thyBody mass index (BMI) 34.0-34.9, adultPrescri bed Activity/Exe rcise CounselingDi etary counseling and surveillance 3 Patito [facility] ABHI-ALEXY Arrieta. [address] [place] [address], [id number], . tel:[phone] Referring Provider: Meenakshi Caputo [facility], [address] [place] [address], [id number]. tel:[phone] OFFICE/OUTPATI ENT VISIT, [facility], [address] [place] [address], [facility], [place] tel:[phone] [facility] Opioid use disorder, moderate, dependenceOt her fpc (current) drug therapyBody mass index (BMI) 33.0-33.9, adultNeuropa thyPrescribe d Activity/Exe rcise CounselingDi etary counseling and surveillance Body mass index (BMI) 34.0-34.9, adultDietary counseling and surveillance Prescribed Activity/Exe rcise CounselingBi polar affective disorder, currently depressed, moderate 3 Patito [facility] Meenakshi. [address] [place] [address], [address] [place] [address], . tel:[phone] Referring Provider: Meenakshi Caputo [facility] ABHI-ALEXY, [address] [place] [address], [address] [place] [address]. tel:[phone] Psychotherapy 30 Minutes [facility], [address] [place] [address], [facility], tel:[phone] [facility] Bipolar affective disorder, current episode hypomanicOpi oid use disorder, moderate, dependenceOt her rodent exterminator (current) drug therapyBody mass index (BMI) 33.0-33.9, adultNeuropa thyPrescribe d Activity/Exe rcise CounselingDi etary counseling and surveillance 3 Stephen [facility] Naa. [address] [place] [address], [address] [place] [address], [place]. tel:[phone] OFFICE/OUTPATI ENT VISIT, [facility], [address] [place] [address], [facility], tel:[phone] [facility] Bipolar affective disorder, current episode hypomanicOpi oid use disorder, moderate, dependenceOt her rodent exterminator (current) drug therapyBody mass index (BMI) 33.0-33.9, adultDietary counseling and surveillance Prescribed Activity/Exe rcise CounselingNe uropathy 3 Patito [facility] Meenakshi. [address] [place] [address], [id number], . tel:[phone] Referring Provider: Meenakshi Caputo [facility], [address] [place] [address], [id number]. tel:[phone] Psychotherapy 30 Minutes [place] [facility], [address] [place] [address], [facility], tel:[phone] [facility] Bipolar affective disorder, current episode hypomanicOpi oid use disorder, moderate, dependenceOt her fpc (current) drug therapyBody mass index (BMI) 33.0-33.9, adultDietary counseling and surveillance Prescribed Activity/Exe rcise CounselingNe uropathy [address] [facility] Naa. [address] [place] [address], [address] [place] [address], [place]. tel:[phone] [place] [facility], [address] [place] [address], [facility], tel:[phone] [facility] MAT (chief complaint) No Information 3 Nash Hernandez. [address] [place] [address], [address] [place] [address], . tel:[phone] Referring Provider: Mary Cao, [address] [place] [address], [address] [place] [address]. tel:[phone] [place] [facility], [address] [place] [address], [facility], tel:[phone] [facility] No Information 3 Nash Hernandez. [address] [place] [address], [address] [place] [address], . tel:[phone] Referring Provider: Mary Cao, [address] [place] [address], [address] [place] [address]. tel:[phone] lting Provider: WB Lab Only. OFFICE/OUTPATI ENT VISIT, EST [place] [employer] [facility] [facility], [address] [place] [address], [facility], tel:[phone] [facility] Opioid use disorder, moderate, dependenceOt her fpc (current) drug therapyBody mass index (BMI) 33.0-33.9, adultBipolar affective disorder, current episode hypomanicPre scribed Activity/Exe rcise CounselingDi etary counseling and surveillance Dietary counseling and surveillance Prescribed Activity/Exe rcise CounselingNe uropathy 2 Ptaito [facility] Meenakshi. [address] [place] [address], [id number], [place]. tel:[phone] Psychotherapy 30 Minutes [place] [employer], [address] [place] [address], [id number], [place] tel:[phone] [facility] Opioid use disorder, moderate, dependenceOt her rodent exterminator (current) drug therapyBody mass index (BMI) 33.0-33.9, adultBipolar affective disorder, current episode hypomanicPre scribed Activity/Exe rcise CounselingDi etary counseling and surveillance 2 Stephen [facility] Naa. [address] [place] [address], [id number], [place]. tel:[phone] OFFICE/OUTPATI ENT VISIT, EST [place] [employer], [address] [place] [address], [address], [place] tel:[phone] [facility] MAT (chief complaint) Obesity, unspecifiedD ietary counseling and surveillance Prescribed Activity/Exe rcise CounselingOp ioid use disorder, moderate, dependence 2 Carmical Mary. [address] [place] [address], [id number], [place]. tel:[phone] OFFICE/OUTPATI ENT VISIT, EST [place] [employer], [address] [place] [address], [address], [place] tel:[phone] [facility] MAT (chief complaint) Obesity, unspecifiedD ietary counseling and surveillance Prescribed Activity/Exe rcise CounselingOp ioid use disorder, moderate, dependencePa micah attacks 2 Breeding Van. [address] [place] [address], [id number], [place]. tel:[phone] Psychotherapy 30 Minutes [place] [employer], [address] [place] [address], [address], [place] tel:[phone] [facility] Opioid use disorder, moderate, dependenceOt her fpc (current) drug therapyBody mass index (BMI) 33.0-33.9, adultBipolar affective disorder, current episode hypomanicDie tary counseling and surveillance Prescribed Activity/Exe rcise Counseling Aug- 2 [facility]. [address] [place] [address], [id number], [place]. tel:[phone] OFFICE/OUTPATI ENT VISIT, EST [facility], [address] [place] [address], [address], [place] tel:[phone] [facility] MAT (chief complaint) Other rodent exterminator (current) drug therapyObesi ty, unspecifiedD ietary counseling and surveillance Prescribed Activity/Exe rcise CounselingOp ioid use disorder, moderate, dependence 2 [place]. [address] [place] [address], [id number], [place]. tel:[phone] Psychotherapy 30 Minutes [place] [employer] [facility], [address] [place] [address], [address], [place] tel:[phone] [facility] Opioid use disorder, moderate, dependenceOt her fpc (current) drug therapyBody mass index (BMI) 33.0-33.9, adultBipolar affective disorder, current episode hypomanicPre scribed Activity/Exe rcise CounselingDi etary counseling and surveillance 2 [facility]. [address] [place] [address], [id number], [place]. tel:[phone] OFFICE/OUTPATI ENT VISIT, EST [place] [facility] [employer] [facility], [address] [place] [address], [address], [place] tel:[phone] [facility] MAT (chief complaint) Obesity, unspecifiedD ietary counseling and surveillance Prescribed Activity/Exe rcise CounselingOp ioid use disorder, moderate, dependence Aug-0 2 [place]. [address] [place] [address], [id number], [place]. tel:[phone] OFFICE/OUTPATI ENT VISIT, [facility], [address] [place] [address], [facility], tel:[phone] [facility] Opioid use disorder, moderate, dependenceOt her fpc (current) drug therapyBody mass index (BMI) 32.0-32.9, adultBody mass index (BMI) 33.0-33.9, adultBipolar affective disorder, current episode hypomanicBod y mass index (BMI) 34.0-34.9, adultPrescri bed Activity/Exe rcise CounselingDi etary counseling and surveillance Dietary counseling and surveillance Prescribed Activity/Exe rcise Counseling 2 Patito [facility] Meenakshi. [address] [place] [address], [address] [place] [address], . tel:[phone] Referring Provider: Meenakshi Caputo [facility], [address] [place] [address], [address] [place] [address]. tel:[phone] Psychotherapy 30 Minutes [facility], [address] [place] [address], [facility], tel:[phone] [facility] [facility] [place] Opioid use disorder, moderate, dependenceOt her fpc (current) drug therapyBody mass index (BMI) 33.0-33.9, adultBipolar affective disorder, current episode hypomanicPre scribed Activity/Exe rcise CounselingDi etary counseling and surveillance 2 Stephen [facility] Naa. [address] [place] [address], [address] [place] [address], . tel:[phone] OFFICE/OUTPATI ENT VISIT, [facility], [address] [place] [address], [facility], tel:[phone] [facility] [place] Opioid use disorder, moderate, dependenceOt her fpc (current) drug therapyBody mass index (BMI) 32.0-32.9, adultBody mass index (BMI) 33.0-33.9, adultBipolar affective disorder, current episode hypomanicBod y mass index (BMI) 34.0-34.9, adultDietary counseling and surveillance Prescribed Activity/Exe rcise CounselingDi etary counseling and surveillance Prescribed Activity/Exe rcise Counseling 2 Patito [facility] Meenakshi. [address] [place] [address], [address] [place] [address], . tel:[phone] Referring Provider: Meenakshi Caputo [facility], [address] [place] [address], [address] [place] [address]. tel:[phone] Psychotherapy 30 Minutes [facility], [address] [place] [address], [facility], tel:[phone] [facility] [place] Opioid use disorder, moderate, dependenceOt her fpc (current) drug therapyBody mass index (BMI) 33.0-33.9, adultBipolar affective disorder, current episode hypomanicDie tary counseling and surveillance Prescribed Activity/Exe rcise Counseling 2 Stephen [facility] Naa. [address] [place] [address], [address] [place] [address], [place]. tel:[phone] OFFICE/OUTPATI ENT VISIT, EST [facility], [address] [place] [address], [facility], tel:[phone] [facility] [place] Opioid use disorder, moderate, dependenceOt her fpc (current) drug therapyBody mass index (BMI) 32.0-32.9, adultBody mass index (BMI) 33.0-33.9, adultBipolar affective disorder, current episode hypomanicPre scribed Activity/Exe rcise CounselingDi etary counseling and surveillance Body mass index (BMI) 34.0-34.9, adultDietary counseling and surveillance Prescribed Activity/Exe rcise Counseling 2 Patito [facility] Meenakshi. [address] [place] [address], [id number], . tel:[phone] Referring Provider: Meenakshi Caputo [facility], [address] [place] [address], [address] [place] [address]. tel:[phone] OFFICE/OUTPATI ENT VISIT, EST [place] [facility], [address] [place] [address], [id number], [place] tel:[phone] [facility] MAT (chief complaint) Obesity, unspecifiedD ietary counseling and surveillance Prescribed Activity/Exe rcise CounselingOp ioid use disorder, moderate, dependence 2 Nash Hernandez. [address] [place] [address], [id number], [place]. tel:[phone] Psychotherapy 30 Minutes [place] [facility], [address] [place] [address], [address], [place] tel:[phone] [facility] [place] Opioid use disorder, moderate, dependenceOt her fpc (current) drug therapyBipol ar affective disorder, current episode hypomanicBod y mass index (BMI) 34.0-34.9, adultDietary counseling and surveillance Prescribed Activity/Exe rcise Counseling 2 Stephen [facility] Naa. [address] [place] [address], [id number], [place]. tel:[phone] [place] [facility], [address] [place] [address], [id number], [place] tel:[phone] [facility] diabetes (chief complaint) Body mass index (BMI) 34.0-34.9, adultDietary counseling and surveillance Prescribed Activity/Exe rcise CounselingTy pe 2 diabetes mellitus with hyperglycemi a, with long-term current use of insulinLong term (current) use of insulin 2 Reece Hastings. [address] [place] [address], [id number], [place]. tel:[phone] OFFICE/OUTPATI ENT VISIT, EST [facility], [address] [place] [address], [address], [place] tel:[phone] [facility] [place] Opioid use disorder, moderate, dependenceOt her fpc (current) drug therapyBody mass index (BMI) 32.0-32.9, adultBody mass index (BMI) 33.0-33.9, adultBipolar affective disorder, current episode hypomanicDie tary counseling and surveillance Prescribed Activity/Exe rcise CounselingBo dy mass index (BMI) 34.0-34.9, adultDietary counseling and surveillance Prescribed Activity/Exe rcise CounselingTS H elevation May- 2 Pat[facility] Meenakshi. [address] [place] [address], [id number], . tel:[phone] OFFICE/OUTPATI ENT VISIT, [facility], [address] [place] [address], [facility], [place] tel:[phone] [facility] MAT (chief complaint) Other rodent exterminator (current) drug therapyObesi ty, unspecifiedD ietary counseling and surveillance Prescribed Activity/Exe rcise CounselingHy perglycemiaF atigue, unspecified typeVitamin D deficiencyEs sential hypertension Opioid use disorder, moderate, dependenceTS H elevation Sep- 2 Nash Hernandez. [address] [place] [address], [id number], [place]. tel:[phone] Referring Provider: Mary Cao, [address] [place] [address], [address]. tel:[phone] Psychotherapy 30 Minutes [facility], [address] [place] [address], [facility], [place] tel:[phone] [facility] [place] Opioid use disorder, moderate, dependenceOt her fpc (current) drug therapyBipol ar affective disorder, current episode hypomanicDie tary counseling and surveillance Prescribed Activity/Exe rcise Counseling May- 2 Stephen [facility] Naa. [address] [place] [address], [id number], [place]. tel:[phone] OFFICE/OUTPATI ENT VISIT, [facility], [address] [place] [address], [facility], [place] tel:[phone] [facility] [place] Opioid use disorder, moderate, dependenceOt her fpc (current) drug therapyBody mass index (BMI) 32.0-32.9, adultDietary counseling and surveillance Exercise counselingBo dy mass index (BMI) 33.0-33.9, adultDietary counseling and surveillance Prescribed Activity/Exe rcise CounselingBi polar affective disorder, current episode hypomanic 2 Patito [facility] Meenakshi. [address] [place] [address], [id number], [place]. tel:[phone] Psychotherapy, With Pt 45 Min [place] [facility], [address] [place] [address], [id number], [place] tel:[phone] [facility] substance abuse (chief complaint) Opioid use disorder, moderate, dependenceOt her fpc (current) drug therapyBipol ar affective disorder, currently depressed, moderateExer cise counselingBo dy mass index (BMI) 33.0-33.9, adultDietary counseling and surveillance Prescribed Activity/Exe rcise Counseling 2 Stephen [facility] Naa. [address] [place] [address], [id number], [place]. tel:[phone] OFFICE/OUTPATI ENT VISIT, EST [place] [facility], [address] [place] [address], [id number], [place] tel:[phone] [facility] MAT (chief complaint) Other fpc (current) drug therapyOpioi d use disorder, moderate, dependence 2 Tyree Blackmon. [address] [place] [address], [id number], [place]. tel:[phone] Referring Provider: Mary Cao, [address] [place] [address], [address]. tel:[phone] OFFICE/OUTPATI ENT VISIT, [facility], [address] [place] [address], [address], [place] tel:[phone] [facility] MAT (chief complaint) Other fpc (current) drug therapyDieta ry counselingEx ercise counselingOp ioid use disorder, moderate, dependence 2 Nash Hernandez. [address] [place] [address], [id number], [place]. tel:[phone] Referring Provider: Mary Cao, [address] [place] [address], [address]. tel:[phone] [facility], [address] [place] [address], [facility], [place] tel:[phone] [facility] [place] Opioid use disorder, moderate, dependenceOt her rodent exterminator (current) drug therapyBody mass index (BMI) 32.0-32.9, adultBipolar affective disorder, currently depressed, moderateDiet scott counseling and surveillance Exercise counseling 2 [facility] Naa. [address] [place] [address], [id number], [place]. tel:[phone] OFFICE/OUTPATI ENT VISIT, [facility], [address] [place] [address], [facility], tel:[phone] [facility] [place] Opioid use disorder, moderate, dependenceOt her fpc (current) drug therapyDieta ry counseling and surveillance Exercise counselingBo dy mass index (BMI) 32.0-32.9, adultDietary counseling and surveillance Prescribed Activity/Exe rcise CounselingBi polar affective disorder, currently depressed, moderate 2 Patito [facility] Meenakshi. [address] [place] [address], [id number], [place]. tel:[phone] OFFICE/OUTPATI ENT VISIT, [facility], [address] [place] [address], [facility], [place] tel:[phone] [facility] MAT (chief complaint) Other fpc (current) drug therapyObesi ty, unspecifiedD ietary counseling and surveillance Prescribed Activity/Exe rcise CounselingOp ioid use disorder, moderate, dependence 2 Nash Hernandez. [address] [place] [address], [id number], [place]. tel:[phone] Referring Provider: Mary Cao, [address] [place] [address], [id number]. tel:[phone] Psychotherapy 30 Minutes [place] [facility], [address] [place] [address], [address], [place] tel:[phone] [facility] [place] substance abuse (chief complaint) Opioid use disorder, moderate, dependenceOt her fpc (current) drug therapyExerc ise counselingBo dy mass index (BMI) 32.0-32.9, adultDietary counseling and surveillance Prescribed Activity/Exe rcise Counseling 2 [facility]. [address] [place] [address], [id number], [place]. tel:[phone] Psychotherapy 60 Minutes [place] [facility], [address] [place] [address], [facility], [place] tel:[phone] [facility] [place] substance abuse (chief complaint) Body mass index (BMI) 32.0-32.9, adultOpioid use disorder, moderate, dependenceMa tico depressive disorder, recurrent, moderateDiet scott counseling and surveillance Prescribed Activity/Exe rcise Counseling 2 [facility]. [address] [place] [address], [id number], [place]. tel:[phone] OFFICE/OUTPATI ENT VISIT, EST [place] [facility], [address] [place] [address], [address], [place] tel:[phone] [facility] MAT (chief complaint) Other fpc (current) drug therapyOpioi d use disorder, moderate, dependenceDi etary counseling and surveillance Exercise counselingBo dy mass index (BMI) 32.0-32.9, adultDietary counseling and surveillance Prescribed Activity/Exe rcise Counseling 2 Nash Hernandez. [address] [place] [address], [id number], [place]. tel:[phone] Referring Provider: Mary Cao, [address] [place] [address], [address]. tel:[phone] Psychotherapy 30 Minutes [place] [facility], [address] [place] [address], [id number], [place] tel:[phone] [facility] [place] Body mass index (BMI) 32.0-32.9, adultOpioid use disorder, moderate, dependenceMa tico depressive disorder, recurrent, moderateDiet scott counseling and surveillance Prescribed Activity/Exe rcise Counseling 2 Stephen [facility] Naa. [address] [place] [address], [id number], . tel:[phone] OFFICE/OUTPATI ENT VISIT, EST [facility], [address] [place] [address], [facility], [place] tel:[phone] [facility] MAT (chief complaint) Other fpc (current) drug therapyObesi ty, unspecifiedD ietary counseling and surveillance Prescribed Activity/Exe rcise CounselingMo derate opioid dependence 2 Nash Hernandez. [address] [place] [address], [id number], . tel:[phone] Referring Provider: Mary Cao, [address] [place] [address], [address]. tel:[phone] Psych Diag Eval W/med Srvcx [facility], [address] [place] [address], [facility], [place] tel:[phone] [facility] [place] Body mass index (BMI) 32.0-32.9, adultOpioid use disorder, moderate, dependenceDi etary counseling and surveillance Prescribed Activity/Exe rcise CounselingDi etary counseling and surveillance Prescribed Activity/Exe rcise CounselingBi polar affective disorder, currently depressed, moderatePTSD (post-trauma tic stress disorder) 2 [facility] Meenakshi. [address] [place] [address], [id number], [place]. tel:[phone] Psychotherapy 30 Minutes [facility], [address] [place] [address], [facility], [place] tel:[phone] [facility] [place] substance abuse (chief complaint) Body mass index (BMI) 32.0-32.9, adultOpioid use disorder, moderate, dependenceMa tico depressive disorder, recurrent, moderateDiet scott counseling and surveillance Prescribed Activity/Exe rcise Counseling 2 [facility]. [address] [place] [address], [id number], . tel:[phone] PREV VISIT, EST, AGE 40-64 [facility], [address] [place] [address], [facility], tel:[phone] [facility] MAT (chief complaint)p reventive exam woman (chief complaint) Body mass index (BMI) 32.0-32.9, adultOpioid use disorder, moderate, dependenceMa tico depressive disorder, recurrent, moderateDiet scott counseling and surveillance Prescribed Activity/Exe rcise CounselingOt her fpc (current) drug therapyObesi ty, unspecifiedD ietary counseling and surveillance Prescribed Activity/Exe rcise CounselingPa in, dentalWellne ss examinationV itamin D deficiencyFa tigue, unspecified typeHypergly cemiaTooth abscess 2 Nash Hernandez. [address] [place] [address], [id number], . tel:[phone] Referring Provider: Mary Cao, [address] [place] [address], [address]. tel:[phone] Psychotherapy 30 Minutes [facility], [address] [place] [address], [facility], [place] tel:[phone] [facility] Body mass index (BMI) 32.0-32.9, adultOpioid use disorder, moderate, dependenceMa tico depressive disorder, recurrent, moderateDiet scott counseling and surveillance Prescribed Activity/Exe rcise Counseling 2 [facility]. [address] [place] [address], [id number], . tel:[phone] OFFICE/OUTPATI ENT VISIT, EST [facility], [address] [place] [address], [facility], [place] tel:[phone] [facility] MAT (chief complaint) Other fpc (current) drug therapyObesi ty, unspecifiedD ietary counseling and surveillance Prescribed Activity/Exe rcise CounselingSe izure disorderOpio id use disorder 2 Nash Hernandez. [address] [place] [address], [id number], . tel:[phone] Referring Provider: Mary Cao, [address] [place] [address], [address]. tel:[phone] [facility], [address] [place] [address], [facility], [place] tel:[phone] [facility] Opioid use disorder, moderate, dependence 2 Nurses Nurse. . Consulting Provider: Facility/[facility]. OFFICE/OUTPATI ENT VISIT, EST [facility], [address] [place] [address], [facility], tel:[phone] [facility] MAT (chief complaint) Other rodent exterminator (current) drug therapyOpioi d use disorderPres cribed Activity/Exe rcise CounselingOb esity, unspecifiedD ietary counseling and surveillance 2 Nash Hernandez. [address] [place] [address], [id number], . tel:[phone] Referring Provider: Mary Cao, [address] [place] [address], [id number]. tel:[phone] Psychotherapy 30 Minutes [facility], [address] [place] [address], [facility], [place] tel:[phone] [facility] substance abuse (chief complaint) Body mass index (BMI) 32.0-32.9, adultOpioid use disorder, moderate, dependenceMa tico depressive disorder, recurrent, moderateDiet scott counseling and surveillance Prescribed Activity/Exe rcise Counseling 2 Stephen [facility] Naa. [address] [place] [address], [id number], [place]. tel:[phone] Psych Evaluation [facility], [address] [place] [address], [id number], [place] tel:[phone] [facility] MAT (chief complaint) Body mass index (BMI) 32.0-32.9, adultOpioid use disorder, moderate, dependenceMa tico depressive disorder, recurrent, moderate 2 White [facility] Naa. [address] [place] [address], [id number], [place]. tel:[phone] [facility], [address] [place] [address], [facility], [place] tel:[phone] [facility] MAT (chief complaint) Opioid dependence, uncomplicate dBenzodiazep ine abuseDietary counselingEx ercise counseling 2 Nash Hernandez. [address] [place] [address], [id number], . tel:[phone] OFFICE/OUTPATI ENT VISIT, EST [facility], [address] [place] [address], [facility], tel:[phone] [facility] MAT (chief complaint) Other rodent exterminator (current) drug therapyObesi ty, unspecifiedD ietary counseling and surveillance Prescribed Activity/Exe rcise CounselingOp ioid use disorder 2 Nash Hernandez. [address] [place] [address], [id number], . tel:[phone] Referring Provider: Mary Cao, [address] [place] [address], [address] [place] [address]. tel:[phone] [place] [facility], [address] [place] [address], [facility], [place] tel:[phone] [facility] Body mass index (BMI) 32.0-32.9, adultDietary counseling and surveillance Prescribed Activity/Exe rcise CounselingOp ioid dependence, uncomplicate d 2 Nurses Nurse. . Consulting Provider: Nurse Only. [facility], [address] [place] [address], [facility], tel:[phone] [facility] [place] Body mass index (BMI) 32.0-32.9, adultDietary counseling and surveillance Prescribed Activity/Exe rcise CounselingOp ioid dependence, uncomplicate d 2 Nurses Nurse. . Consulting Provider: Nurse Only. OFFICE/OUTPATI ENT VISIT, [facility], [address] [place] [address], [facility], tel:[phone] [facility] MAT (chief complaint) Other fpc (current) drug therapyObesi ty, unspecifiedD ietary counseling and surveillance Prescribed Activity/Exe rcise CounselingOp ioid use disorderBenz odiazepine abuse 2 Nash Hernandez. [address] [place] [address], [id number], . tel:[phone] Referring Provider: Mary Cao, [address] [place] [address], [address] [place] [address]. tel:[phone] Psychotherapy 30 Minutes [facility], [address] [place] [address], [facility], [place] tel:[phone] [facility] [place] Body mass index (BMI) 33.0-33.9, adultDietary counseling and surveillance Prescribed Activity/Exe rcise CounselingOp ioid use disorder, moderate, dependence 2 [facility]. [address] [place] [address], [id number], [place]. tel:[phone] OFFICE/OUTPATI ENT VISIT, [facility], [address] [place] [address], [id number], [place] tel:[phone] [facility] MAT (chief complaint) Other rodent exterminator (current) drug therapyObesi ty, unspecifiedD ietary counseling and surveillance Prescribed Activity/Exe rcise CounselingOp ioid dependence, uncomplicate d 2 Nash Hernandez. [address] [place] [address], [id number], . tel:[phone] Referring Provider: Mary Cao, [address] [place] [address], [id number]. tel:[phone] OFF[facility]PATI ENT VISIT, [facility], [address] [place] [address], [address], [place] tel:[phone] [facility] substance abuse (chief complaint) Obesity, unspecifiedD ietary counseling and surveillance Prescribed Activity/Exe rcise CounselingOp ioid use disorder 2 Carmical Mary. [address] [place] [address], [id number], [place]. tel:[phone] Family History Family Member Type Diagnosis Age At Onset Mother Problem hypertension Mother Problem Diabetes mellitus Payers Payer name Insurance type Covered democrat ID Anette gerardo(s) [place] Medicare Advantage [id number] Medicare Wrap Around [id number] [place] Medicaid [facility] [id number] Social History Type Description Quantity Date Captured Comments Alcohol Use Details Unknown Caffeine Use Details Unknown Tobacco Use Status Smoking Status No Information Sex Female Chief Complaint And Reason For Visit No Information Reason For Referral Reason For Referral No Information Plan Of Treatment Date Type Action Status Goal Sigmoidoscopy. Due on due Goal FIT-DNA. Due on due Goal Mammogram. Due on due Goal Hemoglobin A1C. Due on due Goal HIV screen due Goal Preventive Visit. Due on Nov due Goal Depression scree trinity. Due on due Goal Cologuard. Due on 4 due Goal FOBT. Due on due Goal Colonoscopy. Due on 024 due Goal PAP. Due on due Goal PAP. Due on due Goal Mammogram. Due on due Goal Colonoscopy. Due on due Goal FOBT. Due on due Goal Preventive Visit. Due on Nov due Goal Depression scree trinity. Due on due Goal Cologuard. Due on due Goal FIT-DNA. Due on due Goal Sigmoidoscopy. Due on due Goal Hemoglobin A1C. Due on due Goal HIV screen due Goal Hemoglobin A1C. Due on due Goal FOBT. Due on due Goal Mammogram. Due on due Goal PAP. Due on due Goal FIT-DNA. Due on due Goal Cologuard. Due on due Goal Colonoscopy. Due on due Goal Sigmoidoscopy. Due on due Goal Preventive Visit. Due on Oct due Goal HIV screen due Goal Depression scree trinity. Due on due Goal FOBT. Due on due Goal Preventive Visit. Due on Oct due Goal Hemoglobin A1C. Due on due Goal PAP. Due on due Goal Sigmoidoscopy. Due on due Goal Mammogram. Due on due Goal HIV screen due Goal Depression scree trinity. Due on due Goal Cologuard. Due on due Goal FIT-DNA. Due on due Goal Colonoscopy. Due on due Goal Hemoglobin A1C. Due on due Goal HIV screen due Goal FOBT. Due on due Goal Depression scree trinity. Due on due Goal Sigmoidoscopy. Due on due Goal Mammogram. Due on due Goal Cologuard. Due on due Goal Colonoscopy. Due on due Goal FIT-DNA. Due on due Goal PAP. Due on due Goal Preventive Visit. Due on Oct due Goal Dietary manageme nt education, guidance, and counseling completed Goal Hemoglobin A1C. Due on due Goal Preventive Visit. Due on Oct due Goal Sigmoidoscopy. Due on due Goal Cologuard. Due on due Goal HIV screen due Goal FIT-DNA. Due on due Goal Depression scree trinity. Due on due Goal FOBT. Due on due Goal Mammogram. Due on due Goal Colonoscopy. Due on due Goal PAP. Due on due Goal Hemoglobin A1C. Due on due Goal Cologuard. Due on due Goal Sigmoidoscopy. Due on due Goal Mammogram. Due on due Goal Preventive Visit. Due on Oct due Goal PAP. Due on due Goal Colonoscopy. Due on due Goal Depression scree trinity. Due on due Goal FIT-DNA. Due on due Goal FOBT. Due on due Goal HIV screen due Goal Preventive Visit. Due on Oct due Goal Hemoglobin A1C. Due on due Goal Cologuard. Due on due Goal Sigmoidoscopy. Due on due Goal HIV screen due Goal Depression scree trinity. Due on due Goal Mammogram. Due on due Goal Colonoscopy. Due on due Goal PAP. Due on due Goal FIT-DNA. Due on due Goal FOBT. Due on due Goal Dietary manageme nt education, guidance, and counseling completed Goal HIV screen due Goal Hemoglobin A1C. Due on due Goal Depression scree trinity. Due on due Goal Colonoscopy. Due on due Goal FIT-DNA. Due on due Goal Cologuard. Due on due Goal Mammogram. Due on due Goal PAP. Due on due Goal FOBT. Due on due Goal Preventive Visit. Due on Oct due Goal Sigmoidoscopy. Due on due Goal Cologuard. Due on due Goal FOBT. Due on due Goal Colonoscopy. Due on due Goal Preventive Visit. Due on Oct due Goal HIV screen due Goal Sigmoidoscopy. Due on due Goal PAP. Due on due Goal Hemoglobin A1C. Due on due Goal Depression scree trinity. Due on due Goal Mammogram. Due on due Goal FIT-DNA. Due on due Goal Cologuard. Due on due Goal Hemoglobin A1C. Due on due Goal HIV screen due Goal Preventive Visit. Due on Oct due Goal PAP. Due on due Goal Colonoscopy. Due on due Goal Mammogram. Due on due Goal Depression scree trinity. Due on due Goal FOBT. Due on due Goal FIT-DNA. Due on due Goal Sigmoidoscopy. Due on due Goal Dietary manageme nt education, guidance, and counseling completed Goal HIV screen due Goal FIT-DNA. Due on due Goal Mammogram. Due on due Goal Depression scree trinity. Due on due Goal PAP. Due on due Goal Hemoglobin A1C. Due on due Goal Colonoscopy. Due on due Goal FOBT. Due on due Goal Cologuard. Due on due Goal Preventive Visit. Due on Oct due Goal Sigmoidoscopy. Due on due Goal Cologuard. Due on due Goal Hemoglobin A1C. Due on due Goal Depression scree trinity. Due on due Goal FIT-DNA. Due on due Goal Preventive Visit. Due on Oct due Goal Sigmoidoscopy. Due on due Goal Colonoscopy. Due on due Goal FOBT. Due on due Goal Mammogram. Due on due Goal PAP. Due on due Goal HIV screen due Goal Dietary manageme nt education, guidance, and counseling completed Goal FIT-DNA. Due on due Goal HIV screen due Goal Hemoglobin A1C. Due on due Goal Sigmoidoscopy. Due on due Goal Depression scree trinity. Due on due Goal Preventive Visit. Due on Sep due Goal FOBT. Due on due Goal Colonoscopy. Due on due Goal Cologuard. Due on due Goal PAP. Due on due Goal Mammogram. Due on due Goal HIV screen due Goal Hemoglobin A1C. Due on due Goal Depression scree trinity. Due on due Goal Mammogram. Due on due Goal FOBT. Due on due Goal Sigmoidoscopy. Due on due Goal Preventive Visit. Due on Sep due Goal FIT-DNA. Due on due Goal PAP. Due on due Goal Colonoscopy. Due on due Goal Cologuard. Due on due Goal Cologuard. Due on due Goal Depression scree trinity. Due on due Goal HIV screen due Goal Hemoglobin A1C. Due on due Goal FIT-DNA. Due on due Goal Colonoscopy. Due on due Goal FOBT. Due on due Goal Sigmoidoscopy. Due on due Goal PAP. Due on due Goal Mammogram. Due on due Goal Preventive Visit. Due on Sep due Goal Dietary manageme nt education, guidance, and counseling completed Goal Hemoglobin A1C. Due on due Goal Cologuard. Due on due Goal Sigmoidoscopy. Due on due Goal Depression scree trinity. Due on due Goal PAP. Due on due Goal Mammogram. Due on due Goal Colonoscopy. Due on due Goal FIT-DNA. Due on due Goal FOBT. Due on due Goal Preventive Visit. Due on Sep due Goal HIV screen due Goal Dietary manageme nt education, guidance, and counseling completed Goal FIT-DNA. Due on due Goal Depression scree trinity. Due on due Goal Cologuard. Due on due Goal Sigmoidoscopy. Due on due Goal Colonoscopy. Due on due Goal Preventive Visit. Due on Sep due Goal FOBT. Due on due Goal Mammogram. Due on due Goal PAP. Due on due Goal Hemoglobin A1C. Due on due Goal HIV screen due Goal Cologuard. Due on due Goal Depression scree trinity. Due on due Goal HIV screen due Goal Mammogram. Due on due Goal Hemoglobin A1C. Due on due Goal PAP. Due on due Goal Sigmoidoscopy. Due on due Goal Colonoscopy. Due on due Goal Preventive Visit. Due on Sep due Goal FIT-DNA. Due on due Goal FOBT. Due on due Goal Mammogram. Due on due Goal Hemoglobin A1C. Due on due Goal Colonoscopy. Due on due Goal FIT-DNA. Due on due Goal PAP. Due on due Goal Sigmoidoscopy. Due on due Goal Cologuard. Due on due Goal Depression scree trinity. Due on due Goal Preventive Visit. Due on Sep due Goal FOBT. Due on due Goal HIV screen due Goal Preventive Visit. Due on Sep due Goal Hemoglobin A1C. Due on due Goal Cologuard. Due on due Goal PAP. Due on due Goal HIV screen due Goal Depression scree trinity. Due on due Goal Mammogram. Due on due Goal Colonoscopy. Due on due Goal Sigmoidoscopy. Due on due Goal FOBT. Due on due Goal FIT-DNA. Due on due Goal Hemoglobin A1C. Due on due Goal Cologuard. Due on due Goal PAP. Due on due Goal Colonoscopy. Due on due Goal HIV screen due Goal Sigmoidoscopy. Due on due Goal FOBT. Due on due Goal Depression scree trinity. Due on due Goal Mammogram. Due on due Goal FIT-DNA. Due on due Goal Preventive Visit. Due on Sep due Goal Colonoscopy. Due on due Goal HIV screen due Goal Cologuard. Due on due Goal PAP. Due on due Goal Preventive Visit. Due on Sep due Goal FIT-DNA. Due on due Goal Mammogram. Due on due Goal Depression scree trinity. Due on due Goal FOBT. Due on due Goal Hemoglobin A1C. Due on due Goal Sigmoidoscopy. Due on due Goal Dietary manageme nt education, guidance, and counseling completed Goal Cologuard. Due on due Goal FIT-DNA. Due on due Goal Colonoscopy. Due on due Goal Sigmoidoscopy. Due on due Goal PAP. Due on due Goal FOBT. Due on due Goal Mammogram. Due on due Goal HIV screen due Goal Depression scree trinity. Due on due Goal Preventive Visit. Due on Sep due Goal Hemoglobin A1C. Due on due Goal Hemoglobin A1C. Due on due Goal FOBT. Due on due Goal Sigmoidoscopy. Due on due Goal Colonoscopy. Due on 024 due Goal Mammogram. Due on due Goal PAP. Due on due Goal Cologuard. Due on due Goal HIV screen due Goal FIT-DNA. Due on due Goal Depression scree trinity. Due on due Goal Preventive Visit. Due on Sep due Goal Hemoglobin A1C. Due on due Goal Preventive Visit. Due on Aug due Goal Cologuard. Due on due Goal PAP. Due on due Goal Colonoscopy. Due on 023 due Goal FIT-DNA. Due on due Goal Sigmoidoscopy. Due on due Goal Mammogram. Due on due Goal HIV screen due Goal FOBT. Due on due Goal Depression scree trinity. Due on due Goal Preventive Visit. Due on Jul due Goal FIT-DNA. Due on due Goal FOBT. Due on due Goal Hemoglobin A1C. Due on due Goal Sigmoidoscopy. Due on due Goal Cologuard. Due on due Goal Mammogram. Due on due Goal Depression scree trinity. Due on due Goal PAP. Due on due Goal Colonoscopy. Due on 023 due Goal HIV screen due Goal Cologuard. Due on due Goal Hemoglobin A1C. Due on due Goal FIT-DNA. Due on due Goal Preventive Visit. Due on Jul due Goal Colonoscopy. Due on 023 due Goal PAP. Due on due Goal Mammogram. Due on due Goal Depression scree trinity. Due on due Goal HIV screen due Goal Sigmoidoscopy. Due on due Goal FOBT. Due on due Goal HIV screen due Goal Cologuard. Due on due Goal FOBT. Due on due Goal Colonoscopy. Due on 023 due Goal Preventive Visit. Due on Jul due Goal Hemoglobin A1C. Due on due Goal Depression scree trinity. Due on due Goal FIT-DNA. Due on due Goal PAP. Due on due Goal Sigmoidoscopy. Due on due Goal Mammogram. Due on due Goal Depression scree trinity. Due on due Goal Preventive Visit. Due on Jul due Goal Cologuard. Due on due Goal PAP. Due on due Goal FIT-DNA. Due on due Goal FOBT. Due on due Goal Hemoglobin A1C. Due on due Goal HIV screen due Goal Sigmoidoscopy. Due on due Goal Mammogram. Due on due Goal Colonoscopy. Due on 023 due Goal FIT-DNA. Due on due Goal Preventive Visit. Due on Jul due Goal Cologuard. Due on due Goal Depression scree trinity. Due on due Goal Colonoscopy. Due on 023 due Goal HIV screen due Goal FOBT. Due on due Goal Sigmoidoscopy. Due on due Goal Mammogram. Due on due Goal PAP. Due on due Goal Hemoglobin A1C. Due on due Goal Sigmoidoscopy. Due on due Goal FIT-DNA. Due on due Goal PAP. Due on due Goal Colonoscopy. Due on 023 due Goal Depression scree trinity. Due on due Goal Cologuard. Due on due Goal FOBT. Due on due Goal Hemoglobin A1C. Due on due Goal Preventive Visit. Due on Jul due Goal Mammogram. Due on due Goal HIV screen. Due on due Goal Hemoglobin A1C. Due on due Goal Depression scree trinity. Due on due Goal Colonoscopy. Due on 023 due Goal FOBT. Due on due Goal FIT-DNA. Due on due Goal HIV screen. Due on due Goal Mammogram. Due on due Goal Cologuard. Due on due Goal Sigmoidoscopy. Due on due Goal Preventive Visit. Due on Jul due Goal PAP. Due on due Goal FOBT. Due on due Goal Mammogram. Due on due Goal Depression scree trinity. Due on due Goal Hemoglobin A1C. Due on due Goal Preventive Visit. Due on Jun due Goal Cologuard. Due on due Goal Sigmoidoscopy. Due on due Goal HIV screen due Goal PAP. Due on due Goal Hemoglobin A1C. Due on due Goal PAP. Due on due Goal FIT-DNA. Due on due Goal Cologuard. Due on due Goal Depression scree trinity. Due on due Goal Preventive Visit. Due on Jun due Goal FIT-DNA. Due on due Goal Colonoscopy. Due on due Goal Colonoscopy. Due on due Goal HIV screen due Goal FOBT. Due on due Goal Sigmoidoscopy. Due on due Goal Mammogram. Due on due Goal Dietary manageme nt education, guidance, and counseling completed Goal Preventive Visit. Due on Jun due Goal Hemoglobin A1C. Due on due Goal FOBT. Due on due Goal PAP. Due on due Goal Colonoscopy. Due on due Goal FIT-DNA. Due on due Goal Cologuard. Due on due Goal Depression scree trinity. Due on due Goal HIV screen due Goal Sigmoidoscopy. Due on due Goal Mammogram. Due on due Goal Cologuard. Due on due Goal Sigmoidoscopy. Due on due Goal Mammogram. Due on due Goal Depression scree trinity. Due on due Goal Preventive Visit. Due on Jun due Goal Hemoglobin A1C. Due on due Goal HIV screen due Goal Colonoscopy. Due on due Goal PAP. Due on due Goal FOBT. Due on due Goal FIT-DNA. Due on due Goal FOBT. Due on due Goal Preventive Visit. Due on Jun due Goal Mammogram. Due on due Goal HIV screen due Goal Sigmoidoscopy. Due on due Goal FIT-DNA. Due on due Goal PAP. Due on due Goal Colonoscopy. Due on 023 due Goal Depression scree trinity. Due on due Goal Cologuard. Due on due Goal Hemoglobin A1C. Due on due Goal Hemoglobin A1C. Due on due Goal HIV screen due Goal Colonoscopy. Due on 023 due Goal PAP. Due on due Goal Preventive Visit. Due on Jun due Goal Sigmoidoscopy. Due on due Goal Depression scree trinity. Due on due Goal Mammogram. Due on due Goal FOBT. Due on due Goal Cologuard. Due on due Goal FIT-DNA. Due on due Goal Cologuard. Due on due Goal Hemoglobin A1C. Due on due Goal FIT-DNA. Due on due Goal Depression scree trinity. Due on due Goal PAP. Due on due Goal HIV screen due Goal Colonoscopy. Due on due Goal Sigmoidoscopy. Due on due Goal Preventive Visit. Due on Jun due Goal Mammogram. Due on due Goal FOBT. Due on due Goal Preventive Visit. Due on Jun due Goal Colonoscopy. Due on due Goal HIV screen due Goal FOBT. Due on due Goal Depression scree trinity. Due on due Goal Cologuard. Due on due Goal Sigmoidoscopy. Due on due Goal FIT-DNA. Due on due Goal PAP. Due on due Goal Hemoglobin A1C. Due on due Goal Mammogram. Due on due Goal Dietary manageme nt education, guidance, and counseling completed Goal Dietary manageme nt education, guidance, and counseling completed Goal Dietary manageme nt education, guidance, and counseling completed Goal FOBT. Due on due Goal Mammogram. Due on due Goal Cologuard. Due on due Goal Hemoglobin A1C. Due on due Goal PAP. Due on due Goal Colonoscopy. Due on due Goal FIT-DNA. Due on due Goal Sigmoidoscopy. Due on due Goal Depression scree trinity. Due on due Goal Preventive Visit. Due on Jun due Goal HIV screen due Goal HIV screen due Goal Cologuard. Due on due Goal PAP. Due on due Goal Mammogram. Due on due Goal Preventive Visit. Due on Jun due Goal Hemoglobin A1C. Due on due Goal Depression scree trinity. Due on due Goal Sigmoidoscopy. Due on due Goal FIT-DNA. Due on due Goal Colonoscopy. Due on 023 due Goal FOBT. Due on due Goal Preventive Visit. Due on May due Goal Mammogram. Due on due Goal FOBT. Due on due Goal PAP. Due on due Goal Hemoglobin A1C. Due on due Goal Colonoscopy. Due on due Goal FIT-DNA. Due on due Goal Depression scree trinity. Due on due Goal Cologuard. Due on due Goal Sigmoidoscopy. Due on due Goal HIV screen due Goal Cologuard. Due on due Goal FOBT. Due on due Goal Colonoscopy. Due on due Goal Hemoglobin A1C. Due on due Goal PAP. Due on due Goal Mammogram. Due on due Goal Sigmoidoscopy. Due on due Goal FIT-DNA. Due on due Goal HIV screen due Goal Depression scree trinity. Due on due Goal Preventive Visit. Due on May due Goal Sigmoidoscopy. Due on due Goal PAP. Due on due Goal Cologuard. Due on due Goal Preventive Visit. Due on May due Goal Preventive Visit. Due on May due Goal Hemoglobin A1C. Due on due Goal Cologuard. Due on due Goal HIV screen due Goal Colonoscopy. Due on 023 due Goal Mammogram. Due on due Goal FIT-DNA. Due on due Goal FOBT. Due on due Goal Depression scree trinity. Due on due Goal PAP. Due on due Goal Hemoglobin A1C. Due on due Goal Sigmoidoscopy. Due on due Goal Colonoscopy. Due on 023 due Goal FIT-DNA. Due on due Goal HIV screen due Goal FOBT. Due on due Goal Depression scree trinity. Due on due Goal Mammogram. Due on due Goal Mammogram. Due on due Goal HIV screen due Goal PAP. Due on due Goal Hemoglobin A1C. Due on due Goal Preventive Visit. Due on May due Goal FIT-DNA. Due on due Goal FOBT. Due on due Goal Depression scree trinity. Due on due Goal Colonoscopy. Due on due Goal Cologuard. Due on due Goal Sigmoidoscopy. Due on due Goal Hemoglobin A1C. Due on due Goal Sigmoidoscopy. Due on due Goal HIV screen due Goal FOBT. Due on due Goal Depression scree trinity. Due on due Goal Colonoscopy. Due on due Goal Preventive Visit. Due on Apr due Goal Mammogram. Due on due Goal FIT-DNA. Due on due Goal PAP. Due on due Goal Mammogram. Due on due Goal Hemoglobin A1C. Due on due Goal PAP. Due on due Goal HIV screen due Goal Depression scree trinity. Due on due Goal FOBT. Due on due Goal Colonoscopy. Due on due Goal Sigmoidoscopy. Due on due Goal Preventive Visit. Due on Apr due Goal FIT-DNA. Due on due Goal Preventive Visit. Due on Apr due Goal Depression scree trinity. Due on due Goal HIV screen due Goal Colonoscopy. Due on due Goal PAP. Due on due Goal Hemoglobin A1C. Due on due Goal Mammogram. Due on due Goal FOBT. Due on due Goal FIT-DNA. Due on due Goal Sigmoidoscopy. Due on due Goal Hemoglobin A1C. Due on due Goal Sigmoidoscopy. Due on due Goal FIT-DNA. Due on due Goal PAP. Due on due Goal Preventive Visit. Due on Apr due Goal FOBT. Due on due Goal Mammogram. Due on due Goal Colonoscopy. Due on due Goal Depression scree trinity. Due on due Goal HIV screen due Goal Dietary manageme nt education, guidance, and counseling completed Goal Mammogram. Due on due Goal Colonoscopy. Due on due Goal Hemoglobin A1C. Due on due Goal Depression scree trinity. Due on due Goal Preventive Visit. Due on Apr due Goal FOBT. Due on due Goal PAP. Due on due Goal Sigmoidoscopy. Due on due Goal FIT-DNA. Due on due Goal HIV screen due Goal Hemoglobin A1C. Due on due Goal Mammogram. Due on due Goal FOBT. Due on due Goal Colonoscopy. Due on due Goal FIT-DNA. Due on due Goal Sigmoidoscopy. Due on due Goal HIV screen due Goal Depression scree trinity. Due on due Goal Preventive Visit. Due on Apr due Goal PAP. Due on due Goal Dietary manageme nt education, guidance, and counseling completed Goal Colonoscopy. Due on due Goal Depression scree trinity. Due on due Goal HIV screen due Goal FOBT. Due on due Goal Preventive Visit. Due on Apr due Goal FIT-DNA. Due on due Goal Sigmoidoscopy. Due on due Goal PAP. Due on due Goal Hemoglobin A1C. Due on due Goal Mammogram. Due on due Goal Depression scree trinity. Due on due Goal HIV screen due Goal PAP. Due on due Goal FIT-DNA. Due on due Goal Mammogram. Due on due Goal Colonoscopy. Due on due Goal Sigmoidoscopy. Due on due Goal FOBT. Due on due Goal Hemoglobin A1C. Due on due Goal Preventive Visit. Due on Apr due Goal Dietary manageme nt education, guidance, and counseling completed Goal Depression scree trinity. Due on due Goal Hemoglobin A1C. Due on due Goal FOBT. Due on due Goal Colonoscopy. Due on due Goal Preventive Visit. Due on Apr due Goal Sigmoidoscopy. Due on due Goal PAP. Due on due Goal HIV screen due Goal Mammogram. Due on due Goal FIT-DNA. Due on due Goal Mammogram. Due on due Goal HIV screen due Goal Depression scree trinity. Due on due Goal Preventive Visit. Due on Apr due Goal Hemoglobin A1C. Due on due Goal PAP. Due on due Goal FOBT. Due on due Goal Sigmoidoscopy. Due on due Goal Colonoscopy. Due on 023 due Goal FIT-DNA. Due on due Goal FIT-DNA. Due on due Goal Preventive Visit. Due on Mar due Goal Mammogram. Due on due Goal Colonoscopy. Due on due Goal Hemoglobin A1C. Due on due Goal Depression scree trinity. Due on due Goal Sigmoidoscopy. Due on due Goal HIV screen due Goal PAP. Due on due Goal FOBT. Due on due Goal FIT-DNA. Due on due Goal Depression scree trinity. Due on due Goal HIV screen due Goal PAP. Due on due Goal Colonoscopy. Due on due Goal Preventive Visit. Due on Apr due Goal Hemoglobin A1C. Due on due Goal Mammogram. Due on due Goal Sigmoidoscopy. Due on due Goal FOBT. Due on due Goal Dietary manageme nt education, guidance, and counseling completed Goal Dietary manageme nt education, guidance, and counseling completed Goal Preventive Visit. Due on Mar due Goal Colonoscopy. Due on due Goal Hemoglobin A1C. Due on due Goal Mammogram. Due on due Goal FIT-DNA. Due on due Goal Sigmoidoscopy. Due on due Goal Depression scree trinity. Due on due Goal HIV screen due Goal PAP. Due on due Goal FOBT. Due on due Goal Sigmoidoscopy. Due on due Goal Mammogram. Due on due Goal Colonoscopy. Due on due Goal PAP. Due on due Goal HIV screen due Goal FOBT. Due on due Goal Preventive Visit. Due on Mar due Goal FIT-DNA. Due on due Goal Depression scree trinity. Due on due Goal Hemoglobin A1C. Due on due Goal Dietary manageme nt education, guidance, and counseling completed Goal FOBT. Due on due Goal PAP. Due on due Goal Colonoscopy. Due on due Goal Preventive Visit. Due on Mar due Goal Mammogram. Due on due Goal Depression scree trinity. Due on due Goal Sigmoidoscopy. Due on due Goal FIT-DNA. Due on due Goal HIV screen due Goal Hemoglobin A1C. Due on due Goal HIV screen due Goal Mammogram. Due on due Goal Preventive Visit. Due on Mar due Goal Sigmoidoscopy. Due on due Goal Depression scree trinity. Due on due Goal Colonoscopy. Due on due Goal Hemoglobin A1C. Due on due Goal FOBT. Due on due Goal FIT-DNA. Due on due Goal PAP. Due on due Goal FIT-DNA. Due on due Goal Colonoscopy. Due on due Goal Depression scree trinity. Due on due Goal Preventive Visit. Due on Mar due Goal PAP. Due on due Goal FOBT. Due on due Goal Mammogram. Due on due Goal Hemoglobin A1C. Due on due Goal Sigmoidoscopy. Due on due Goal HIV screen due Goal HIV screen due Goal FIT-DNA. Due on due Goal Preventive Visit. Due on Mar due Goal Sigmoidoscopy. Due on due Goal Hemoglobin A1C. Due on due Goal Colonoscopy. Due on due Goal Mammogram. Due on due Goal Depression scree trinity. Due on due Goal PAP. Due on due Goal FOBT. Due on due Goal PAP. Due on due Goal Hemoglobin A1C. Due on due Goal Preventive Visit. Due on Mar due Goal Sigmoidoscopy. Due on due Goal FIT-DNA. Due on due Goal Colonoscopy. Due on 023 due Goal HIV screen due Goal FOBT. Due on due Goal Depression scree trinity. Due on due Goal Mammogram. Due on due Goal Mammogram. Due on due Goal FOBT. Due on due Goal Colonoscopy. Due on due Goal Preventive Visit. Due on Mar due Goal Hemoglobin A1C. Due on due Goal Depression scree trinity. Due on due Goal Sigmoidoscopy. Due on due Goal FIT-DNA. Due on due Goal HIV screen due Goal PAP. Due on due Goal Depression scree trinity. Due on due Goal Colonoscopy. Due on 023 due Goal FOBT. Due on due Goal PAP. Due on due Goal Hemoglobin A1C. Due on due Goal Preventive Visit. Due on Mar due Goal Mammogram. Due on due Goal Sigmoidoscopy. Due on due Goal HIV screen due Goal FIT-DNA. Due on due Goal Dietary manageme nt education, guidance, and counseling completed Goal PAP. Due on due Goal Depression scree trinity. Due on due Goal FOBT. Due on due Goal Mammogram. Due on due Goal HIV screen due Goal FIT-DNA. Due on due Goal Sigmoidoscopy. Due on due Goal Preventive Visit. Due on Mar due Goal Hemoglobin A1C. Due on due Goal Depression scree trinity. Due on due Goal PAP. Due on due Goal Colonoscopy. Due on 023 due Goal FOBT. Due on due Goal FIT-DNA. Due on due Goal Sigmoidoscopy. Due on due Goal Mammogram. Due on due Goal Preventive Visit. Due on Mar due Goal Colonoscopy. Due on 023 due Goal Hemoglobin A1C. Due on due Goal HIV screen due Goal Hemoglobin A1C. Due on due Goal FOBT. Due on due Goal HIV screen due Goal Preventive Visit. Due on Mar due Goal Depression scree trinity. Due on due Goal PAP. Due on due Goal Colonoscopy. Due on 023 due Goal Sigmoidoscopy. Due on due Goal FIT-DNA. Due on due Goal Mammogram. Due on due Goal Depression scree trinity. Due on due Goal Hemoglobin A1C. Due on due Goal Preventive Visit. Due on Mar due Goal HIV screen due Goal PAP. Due on due Goal FOBT. Due on due Goal FIT-DNA. Due on due Goal Mammogram. Due on due Goal Sigmoidoscopy. Due on due Goal Colonoscopy. Due on 023 due Goal FIT-DNA. Due on due Goal Hemoglobin A1C. Due on due Goal PAP. Due on due Goal Mammogram. Due on due Goal Colonoscopy. Due on 023 due Goal Depression scree trinity. Due on due Goal HIV screen due Goal Preventive Visit. Due on Mar due Goal Sigmoidoscopy. Due on due Goal FOBT. Due on due Goal HIV screen due Goal Mammogram. Due on due Goal PAP. Due on due Goal FOBT. Due on due Goal Depression scree trinity. Due on due Goal Colonoscopy. Due on 023 due Goal Sigmoidoscopy. Due on due Goal Mammogram. Due on due Goal FOBT. Due on due Goal PAP. Due on due Goal Preventive Visit. Due on Mar due Goal FIT-DNA. Due on due Goal HIV screen due Goal Hemoglobin A1C. Due on due Goal FIT-DNA. Due on due Goal Colonoscopy. Due on 023 due Goal Depression scree trinity. Due on due Goal Sigmoidoscopy. Due on due Goal Preventive Visit. Due on Mar due Goal Hemoglobin A1C. Due on due Goal Hemoglobin A1C. Due on due Goal HIV screen due Goal FIT-DNA. Due on due Goal Depression scree trinity. Due on due Goal Preventive Visit. Due on Feb due Goal FOBT. Due on due Goal Colonoscopy. Due on 023 due Goal Mammogram. Due on due Goal PAP. Due on due Goal Sigmoidoscopy. Due on due Goal Hemoglobin A1C. Due on due Goal Depression scree trinity. Due on due Goal Mammogram. Due on due Goal HIV screen due Goal Colonoscopy. Due on 023 due Goal FOBT. Due on due Goal Preventive Visit. Due on Feb due Goal Sigmoidoscopy. Due on due Goal FIT-DNA. Due on due Goal PAP. Due on due Goal Hemoglobin A1C. Due on due Goal FIT-DNA. Due on due Goal Preventive Visit. Due on Feb due Goal Sigmoidoscopy. Due on due Goal Mammogram. Due on due Goal Depression scree trinity. Due on due Goal FOBT. Due on due Goal Colonoscopy. Due on 023 due Goal PAP. Due on due Goal HIV screen due Goal FIT-DNA. Due on due Goal Hemoglobin A1C. Due on due Goal Preventive Visit. Due on Feb due Goal Mammogram. Due on due Goal Sigmoidoscopy. Due on due Goal Depression scree trinity. Due on due Goal FOBT. Due on due Goal PAP. Due on due Goal HIV screen due Goal Colonoscopy. Due on due Goal Mammogram. Due on due Goal Preventive Visit. Due on Feb due Goal FOBT. Due on due Goal Hemoglobin A1C. Due on due Goal HIV screen due Goal Colonoscopy. Due on due Goal FIT-DNA. Due on due Goal PAP. Due on due Goal Depression scree trinity. Due on due Goal Sigmoidoscopy. Due on due Goal Hemoglobin A1C. Due on due Goal Depression scree trinity. Due on due Goal HIV screen due Goal Mammogram. Due on due Goal FOBT. Due on due Goal Sigmoidoscopy. Due on due Goal FIT-DNA. Due on due Goal Colonoscopy. Due on 023 due Goal Preventive Visit. Due on Feb due Goal PAP. Due on due Goal Colonoscopy. Due on 023 due Goal Preventive Visit. Due on Feb due Goal FOBT. Due on due Goal Mammogram. Due on due Goal HIV screen due Goal PAP. Due on due Goal Depression scree trinity. Due on due Goal Sigmoidoscopy. Due on due Goal FIT-DNA. Due on due Goal Hemoglobin A1C. Due on due Goal HIV screen due Goal Colonoscopy. Due on 023 due Goal Sigmoidoscopy. Due on due Goal Depression scree trinity. Due on due Goal Preventive Visit. Due on Feb due Goal Hemoglobin A1C. Due on due Goal FIT-DNA. Due on due Goal PAP. Due on due Goal FOBT. Due on due Goal Mammogram. Due on due Goal Depression scree trinity. Due on due Goal Hemoglobin A1C. Due on due Goal Mammogram. Due on due Goal PAP. Due on due Goal FIT-DNA. Due on due Goal HIV screen due Goal Sigmoidoscopy. Due on due Goal Preventive Visit. Due on Feb due Goal Colonoscopy. Due on 023 due Goal FOBT. Due on due Goal Sigmoidoscopy. Due on due Goal Preventive Visit. Due on Feb due Goal FOBT. Due on due Goal Hemoglobin A1C. Due on due Goal Mammogram. Due on due Goal FIT-DNA. Due on due Goal PAP. Due on due Goal HIV screen due Goal Depression scree trinity. Due on due Goal Colonoscopy. Due on 023 due Goal PAP. Due on due Goal Depression scree trinity. Due on due Goal Colonoscopy. Due on 023 due Goal Hemoglobin A1C. Due on due Goal Sigmoidoscopy. Due on due Goal HIV screen due Goal FOBT. Due on due Goal FIT-DNA. Due on due Goal Preventive Visit. Due on Feb due Goal Mammogram. Due on due Goal Depression scree trinity. Due on due Goal Depression scree trinity. Due on due Goal Colonoscopy. Due on 023 due Goal FIT-DNA. Due on due Goal Sigmoidoscopy. Due on due Goal FIT-DNA. Due on due Goal Preventive Visit. Due on Feb due Goal Hemoglobin A1C. Due on due Goal Mammogram. Due on due Goal Sigmoidoscopy. Due on due Goal PAP. Due on due Goal HIV screen due Goal Colonoscopy. Due on due Goal Mammogram. Due on due Goal Preventive Visit. Due on Feb due Goal Hemoglobin A1C. Due on due Goal HIV screen due Goal PAP. Due on due Goal FOBT. Due on due Goal FOBT. Due on due Goal Dietary manageme nt education, guidance, and counseling completed Goal Colonoscopy. Due on due Goal FIT-DNA. Due on due Goal Sigmoidoscopy. Due on due Goal Hemoglobin A1C. Due on due Goal PAP. Due on due Goal Preventive Visit. Due on Feb due Goal HIV screen due Goal FOBT. Due on due Goal Depression scree trinity. Due on due Goal Mammogram. Due on due Goal Hemoglobin A1C. Due on due Goal HIV screen due Goal Depression scree trinity. Due on due Goal Sigmoidoscopy. Due on due Goal Colonoscopy. Due on due Goal Mammogram. Due on due Goal FOBT. Due on due Goal Preventive Visit. Due on Feb due Goal PAP. Due on due Goal FIT-DNA. Due on due Goal Dietary manageme nt education, guidance, and counseling completed Goal Dietary manageme nt education, guidance, and counseling completed Goal FOBT. Due on due Goal Sigmoidoscopy. Due on due Goal Colonoscopy. Due on due Goal Depression scree trinity. Due on due Goal FIT-DNA. Due on due Goal Preventive Visit. Due on Feb due Goal HIV screen due Goal Mammogram. Due on due Goal Hemoglobin A1C. Due on due Goal PAP. Due on due Goal Hemoglobin A1C. Due on due Goal Sigmoidoscopy. Due on due Goal Depression scree trinity. Due on due Goal FOBT. Due on due Goal FIT-DNA. Due on due Goal Preventive Visit. Due on Feb due Goal Colonoscopy. Due on due Goal HIV screen due Goal Mammogram. Due on due Goal PAP. Due on due Goal PAP. Due on due Goal Sigmoidoscopy. Due on due Goal Depression scree trinity. Due on due Goal Preventive Visit. Due on Feb due Goal Colonoscopy. Due on due Goal FIT-DNA. Due on due Goal FOBT. Due on due Goal Mammogram. Due on due Goal Hemoglobin A1C. Due on due Goal HIV screen due Goal Hemoglobin A1C. Due on due Goal Preventive Visit. Due on Feb due Goal FIT-DNA. Due on due Goal Mammogram. Due on due Goal Depression scree trinity. Due on due Goal FOBT. Due on due Goal Colonoscopy. Due on due Goal HIV screen due Goal Sigmoidoscopy. Due on due Goal PAP. Due on due Goal PAP. Due on due Goal Colonoscopy. Due on due Goal Mammogram. Due on due Goal FIT-DNA. Due on due Goal Preventive Visit. Due on Feb due Goal Depression scree triniyt. Due on due Goal Hemoglobin A1C. Due on due Goal HIV screen due Goal Sigmoidoscopy. Due on due Goal FOBT. Due on due Goal Colonoscopy. Due on 023 due Goal Hemoglobin A1C. Due on due Goal Sigmoidoscopy. Due on due Goal PAP. Due on due Goal Depression scree trinity. Due on due Goal FIT-DNA. Due on due Goal FOBT. Due on due Goal HIV screen due Goal Mammogram. Due on due Goal Preventive Visit. Due on Feb due Goal Dietary manageme nt education, guidance, and counseling completed Goal Depression scree trinity. Due on due Goal HIV screen due Goal Hemoglobin A1C. Due on due Goal FIT-DNA. Due on due Goal FOBT. Due on due Goal Preventive Visit. Due on Feb due Goal Colonoscopy. Due on 023 due Goal Mammogram. Due on due Goal PAP. Due on due Goal Sigmoidoscopy. Due on due Goal FOBT. Due on due Goal Sigmoidoscopy. Due on due Goal HIV screen due Goal Mammogram. Due on due Goal PAP. Due on due Goal Hemoglobin A1C. Due on due Goal Colonoscopy. Due on 023 due Goal Depression scree trinity. Due on due Goal Preventive Visit. Due on Feb due Goal FIT-DNA. Due on due Goal Dietary manageme nt education, guidance, and counseling completed Goal Dietary manageme nt education, guidance, and counseling completed Goal Preventive Visit. Due on Feb due Goal PAP. Due on due Goal FIT-DNA. Due on due Goal Hemoglobin A1C. Due on due Goal FOBT. Due on due Goal Colonoscopy. Due on 023 due Goal Sigmoidoscopy. Due on due Goal Depression scree trinity. Due on due Goal Mammogram. Due on due Goal HIV screen due Goal Hemoglobin A1C. Due on due Goal FIT-DNA. Due on due Goal Preventive Visit. Due on Feb due Goal Depression scree trinity. Due on due Goal FOBT. Due on due Goal Mammogram. Due on due Goal Colonoscopy. Due on 018 due Goal Sigmoidoscopy. Due on due Goal PAP. Due on due Goal HIV screen due Goal Hemoglobin A1C. Due on due Goal PAP. Due on due Goal HIV screen due Goal Depression scree trinity. Due on due Goal FOBT. Due on due Goal FIT-DNA. Due on due Goal Mammogram. Due on due Goal Colonoscopy. Due on 023 due Goal Sigmoidoscopy. Due on due Goal Preventive Visit. Due on Feb due Goal Dietary manageme nt education, guidance, and counseling completed Goal PAP. Due on due Goal ASCVD 10 year risk. Due on A due Goal Preventive Visit. Due on Feb due Goal Mammogram. Due on due Goal Depression scree trinity. Due on due Goal HIV screen due Goal Hemoglobin A1C. Due on due Goal HIV screen due Goal Hemoglobin A1C. Due on due Goal Mammogram. Due on due Goal Depression scree trinity. Due on due Goal Preventive Visit. Due on Feb due Goal Hemoglobin A1C. Due on due Goal FIT-DNA. Due on due Goal FOBT. Due on due Goal Colonoscopy. Due on due Goal Preventive Visit. Due on Feb due Goal PAP. Due on due Goal Sigmoidoscopy. Due on due Goal Depression scree trinity. Due on due Goal Mammogram. Due on due Goal FOBT. Due on due Goal FIT-DNA. Due on due Goal Colonoscopy. Due on due Goal PAP. Due on due Goal Sigmoidoscopy. Due on due Goal HIV screen due Goal Dietary manageme nt education, guidance, and counseling completed Goal Dietary manageme nt education, guidance, and counseling completed Goal HIV screen due Goal ASCVD 10 year risk. Due on due Goal Mammogram. Due on due Goal PAP. Due on due Goal Preventive Visit. Due on Feb due Goal Hemoglobin A1C. Due on due Goal Depression scree trinity. Due on due Goal Mammogram. Due on due Goal ASCVD 10 year risk. Due on due Goal Preventive Visit. Due on Feb due Goal Hemoglobin A1C. Due on due Goal Depression scree trinity. Due on due Goal HIV screen due Goal PAP. Due on due Goal ASCVD 10 year risk. Due on due Goal Hemoglobin A1C. Due on due Goal Depression scree trinity. Due on due Goal Mammogram. Due on due Goal Preventive Visit. Due on Feb due Goal PAP. Due on due Goal HIV screen due Goal ASCVD 10 year risk. Due on M due Goal Hemoglobin A1C. Due on due Goal Mammogram. Due on due Goal Depression scree trinity. Due on due Goal Preventive Visit. Due on Feb due Goal PAP. Due on due Goal HIV screen due Goal Preventive Visit. Due on Feb due Goal HIV screen due Goal Mammogram. Due on due Goal ASCVD 10 year risk. Due on due Goal Hemoglobin A1C. Due on due Goal Depression scree trinity. Due on due Goal PAP. Due on due Goal Dietary manageme nt education, guidance, and counseling completed Goal Depression scree trinity. Due on due Goal Hemoglobin A1C. Due on due Goal ASCVD 10 year risk. Due on due Goal Mammogram. Due on due Goal Preventive Visit. Due on Feb due Goal PAP. Due on due Goal HIV screen due Goal Depression scree trinity. Due on due Goal ASCVD 10 year risk. Due on due Goal Preventive Visit. Due on Feb due Goal PAP. Due on due Goal Hemoglobin A1C. Due on due Goal Mammogram. Due on due Goal Dietary manageme nt education, guidance, and counseling completed Goal Hemoglobin A1C. Due on due Goal ASCVD 10 year risk. Due on due Goal HIV screen due Goal Mammogram. Due on due Goal PAP. Due on due Goal Depression scree trinity. Due on due Goal Preventive Visit. Due on Feb due Goal HIV screen due Goal Mammogram. Due on due Goal PAP. Due on due Goal Hemoglobin A1C. Due on due Goal ASCVD 10 year risk. Due on due Goal Preventive Visit. Due on Feb due Goal Depression scree trinity. Due on due Goal Hemoglobin A1C. Due on due Goal PAP. Due on due Goal Depression scree trinity. Due on due Goal HIV screen due Goal Mammogram. Due on due Goal Preventive Visit. Due on Feb due Goal ASCVD 10 year risk. Due on due Goal Preventive Visit. Due on Feb due Goal Hemoglobin A1C. Due on due Goal PAP. Due on due Goal HIV screen due Goal Depression scree trinity. Due on due Goal Mammogram. Due on due Goal ASCVD 10 year risk. Due on due Goal Dietary manageme nt education, guidance, and counseling completed Goal Dietary manageme nt education, guidance, and counseling completed Goal PAP. Due on due Goal Depression scree trinity. Due on due Goal ASCVD 10 year risk. Due on due Goal Hemoglobin A1C. Due on due Goal HIV screen due Goal Preventive Visit. Due on Feb due Goal Mammogram. Due on due Goal Depression scree trinity. Due on due Goal HIV screen due Goal ASCVD 10 year risk. Due on due Goal Mammogram. Due on due Goal Preventive Visit. Due on Feb due Goal PAP. Due on due Goal Hemoglobin A1C. Due on due Goal HIV screen due Goal Hemoglobin A1C. Due on due Goal PAP. Due on due Goal ASCVD 10 year risk. Due on due Goal Mammogram. Due on due Goal Preventive Visit. Due on Feb due Goal Depression scree trinity. Due on due Goal Dietary manageme nt education, guidance, and counseling completed Goal Dietary manageme nt education, guidance, and counseling completed Goal Dietary manageme nt education, guidance, and counseling completed Goal Hemoglobin A1C. Due on due Goal ASCVD 10 year risk. Due on due Goal Depression scree trinity. Due on due Goal HIV screen due Goal Mammogram. Due on due Goal PAP. Due on due Goal Preventive Visit. Due on Feb due Goal Dietary manageme nt education, guidance, and counseling completed Goal ASCVD 10 year risk. Due on due Goal Depression scree trinity. Due on due Goal Mammogram. Due on due Goal Preventive Visit. Due on Feb due Goal HIV screen due Goal Hemoglobin A1C. Due on due Goal PAP. Due on due Goal HIV screen due Goal ASCVD 10 year risk. Due on due Goal Preventive Visit. Due on Feb due Goal Depression scree trinity. Due on due Goal Mammogram. Due on due Goal PAP. Due on due Goal Mammogram. Due on due Goal HIV screen due Goal Depression scree trinity. Due on due Goal Preventive Visit. Due on Feb due Goal PAP. Due on due Goal ASCVD 10 year risk. Due on due Goal Hemoglobin A1C. Due on due Goal ASCVD 10 year risk. Due on due Goal Mammogram. Due on due Goal PAP. Due on due Goal HIV screen due Goal Depression scree trinity. Due on due Goal Preventive Visit. Due on Feb due Goal PAP. Due on due Goal Hemoglobin A1C. Due on due Goal ASCVD 10 year risk. Due on due Goal HIV screen due Goal Mammogram. Due on due Goal Depression scree trinity. Due on due Goal Preventive Visit. Due on Feb due Goal Dietary manageme nt education, guidance, and counseling completed Goal Dietary manageme nt education, guidance, and counseling completed Goal Dietary manageme nt education, guidance, and counseling completed Goal Mammogram. Due on due Goal Depression scree trinity. Due on due Goal PAP. Due on due Goal ASCVD 10 year risk. Due on due Goal Hemoglobin A1C. Due on due Goal Preventive Visit. Due on Feb due Goal HIV screen due Goal Depression scree trinity. Due on due Goal Hemoglobin A1C. Due on due Goal Preventive Visit. Due on Feb due Goal PAP. Due on due Goal Mammogram. Due on due Goal HIV screen due Goal ASCVD 10 year risk. Due on due Goal Dietary manageme nt education, guidance, and counseling completed Goal Mammogram. Due on due Goal Depression scree trinity. Due on due Goal PAP. Due on due Goal Preventive Visit. Due on Feb due Goal ASCVD 10 year risk. Due on due Goal Hemoglobin A1C. Due on due Goal HIV screen due Goal HIV screen due Goal PAP. Due on due Goal Depression scree trinity. Due on due Goal Mammogram. Due on due Goal Preventive Visit. Due on Feb due Goal ASCVD 10 year risk. Due on due Goal Hemoglobin A1C. Due on due Goal Preventive Visit. Due on Feb due Goal Hemoglobin A1C. Due on due Goal ASCVD 10 year risk. Due on due Goal Depression scree trinity. Due on due Goal HIV screen due Goal Mammogram. Due on due Goal PAP. Due on due Goal Preventive Visit. Due on Feb due Goal ASCVD 10 year risk. Due on due Goal Mammogram. Due on due Goal Hemoglobin A1C. Due on due Goal HIV screen due Goal PAP. Due on due Goal Depression scree trinity. Due on due Goal PAP. Due on due Goal Mammogram. Due on due Goal Preventive Visit. Due on Feb due Goal Depression scree trinity. Due on due Goal HIV screen due Goal Hemoglobin A1C. Due on due Goal ASCVD 10 year risk. Due on due Goal ASCVD 10 year risk. Due on due Goal Depression scree trinity. Due on due Goal Hemoglobin A1C. Due on due Goal Mammogram. Due on due Goal HIV screen due Goal PAP. Due on due Goal Preventive Visit. Due on Feb due Goal Dietary manageme nt education, guidance, and counseling completed Goal Dietary manageme nt education, guidance, and counseling completed Goal ASCVD 10 year risk. Due on due Goal Depression scree trinity. Due on due Goal PAP. Due on due Goal Mammogram. Due on due Goal Hemoglobin A1C. Due on due Goal Preventive Visit. Due on Feb due Goal HIV screen due Goal Depression scree trinity. Due on due Goal Hemoglobin A1C. Due on due Goal ASCVD 10 year risk. Due on due Goal Preventive Visit. Due on Feb due Goal Mammogram. Due on due Goal PAP. Due on due Goal HIV screen due Goal Dietary manageme nt education, guidance, and counseling completed Goal Dietary manageme nt education, guidance, and counseling completed Goal Preventive Visit. Due on Feb due Goal HIV screen due Goal Mammogram. Due on due Goal PAP. Due on due Goal ASCVD 10 year risk. Due on due Goal Depression scree trinity. Due on due Goal Hemoglobin A1C. Due on due Goal Depression scree trinity. Due on due Goal Mammogram. Due on due Goal Hemoglobin A1C. Due on due Goal Preventive Visit. Due on Feb due Goal ASCVD 10 year risk. Due on due Goal PAP. Due on due Goal HIV screen due Goal Dietary manageme nt education, guidance, and counseling completed Goal Depression scree trinity. Due on due Goal Hemoglobin A1C. Due on due Goal Mammogram. Due on due Goal ASCVD 10 year risk. Due on due Goal PAP. Due on due Goal Preventive Visit. Due on Feb due Goal HIV screen due Goal Hemoglobin A1C. Due on due Goal ASCVD 10 year risk. Due on due Goal HIV screen due Goal Mammogram. Due on due Goal PAP. Due on due Goal Preventive Visit. Due on Feb due Goal Depression scree trinity. Due on due Goal ASCVD 10 year risk. Due on due Goal Preventive Visit. Due on Feb due Goal PAP. Due on due Goal Hemoglobin A1C. Due on due Goal Depression scree trinity. Due on due Goal Mammogram. Due on due Goal HIV screen due Goal Dietary manageme nt education, guidance, and counseling completed Goal Dietary manageme nt education, guidance, and counseling completed Goal Depression scree trinity. Due on due Goal ASCVD 10 year risk. Due on due Goal PAP. Due on due Goal Hemoglobin A1C. Due on due Goal Mammogram. Due on due Goal Preventive Visit. Due on Feb due Goal Mammogram. Due on due Goal Depression scree trinity. Due on due Goal Hemoglobin A1C. Due on due Goal ASCVD 10 year risk. Due on due Goal Preventive Visit. Due on Feb due Goal PAP. Due on due Goal HIV screen due Goal Dietary manageme nt education, guidance, and counseling completed Goal Dietary manageme nt education, guidance, and counseling completed Goal Hemoglobin A1C. Due on due Goal Mammogram. Due on due Goal Depression scree trinity. Due on due Goal HIV screen due Goal PAP. Due on due Goal Preventive Visit. Due on Feb due Goal ASCVD 10 year risk. Due on due Goal Hemoglobin A1C. Due on due Goal Depression scree trinity. Due on due Goal ASCVD 10 year risk. Due on due Goal HIV screen due Goal Mammogram. Due on due Goal PAP. Due on due Goal Preventive Visit. Due on Feb due Goal ASCVD 10 year risk. Due on due Goal Hemoglobin A1C. Due on due Goal Depression scree trinity. Due on due Goal Mammogram. Due on due Goal Preventive Visit. Due on Feb due Goal PAP. Due on due Goal Dietary manageme nt education, guidance, and counseling completed Goal Dietary manageme nt education, guidance, and counseling completed Goal Dietary manageme nt education, guidance, and counseling completed Goal Mammogram. Due on due Goal Depression scree trinity. Due on due Goal PAP. Due on due Goal Preventive Visit. Due on Feb due Goal HIV screen due Goal ASCVD 10 year risk. Due on due Goal Hemoglobin A1C. Due on due Goal Depression scree trinity. Due on due Goal PAP. Due on due Goal HIV screen due Goal Preventive Visit. Due on Feb due Goal Mammogram. Due on due Goal Mammogram. Due on due Goal Preventive Visit. Due on Feb due Goal Depression scree trinity. Due on due Goal HIV screen due Goal PAP. Due on due Goal Depression scree trinity. Due on due Goal Mammogram. Due on due Goal PAP. Due on due Goal HIV screen due Goal Preventive Visit. Due on Feb due Goal Dietary manageme nt education, guidance, and counseling completed Goal Dietary manageme nt education, guidance, and counseling completed Goal Dietary manageme nt education, guidance, and counseling completed Goal PAP. Due on due Goal Preventive Visit. Due on Feb due Goal Mammogram. Due on due Goal Depression scree trinity. Due on due Goal HIV screen due Goal Preventive Visit. Due on Feb due Goal PAP. Due on due Goal HIV screen due Goal Mammogram. Due on due Goal Depression scree trinity. Due on due Goal Mammogram. Due on due Goal Preventive Visit. Due on Feb due Goal PAP. Due on due Goal HIV screen due Goal Depression scree trinity. Due on due Goal Dietary manageme nt education, guidance, and counseling completed Goal Dietary manageme nt education, guidance, and counseling completed Goal Mammogram. Due on due Goal Preventive Visit. Due on Feb due Goal Depression scree trinity. Due on due Goal PAP. Due on due Goal HIV screen due Goal Preventive Visit. Due on Feb due Goal Depression scree trinity. Due on due Goal Mammogram. Due on due Goal PAP. Due on due Goal HIV screen due Goal Depression scree trinity. Due on due Goal Mammogram. Due on due Goal HIV screen due Goal PAP. Due on due Goal Preventive Visit. Due on Feb due Goal HIV screen due Goal Preventive Visit. Due on Feb due Goal PAP. Due on due Goal Mammogram. Due on due Goal Depression scree trinity. Due on due Goal HIV screen due Goal PAP. Due on due Goal Mammogram. Due on due Goal Depression scree trinity. Due on due Goal Preventive Visit. Due on Feb due Goal Dietary manageme nt education, guidance, and counseling completed Goal Dietary manageme nt education, guidance, and counseling completed Goal Dietary manageme nt education, guidance, and counseling completed Goal PAP. Due on due Goal HIV screen due Goal Mammogram. Due on due Goal Depression scree trinity. Due on due Goal Preventive Visit. Due on Feb due Goal Preventive Visit. Due on Feb due Goal HIV screen due Goal PAP. Due on due Goal Mammogram. Due on due Goal Depression scree trinity. Due on due Goal Dietary manageme nt education, guidance, and counseling completed Goal Dietary manageme nt education, guidance, and counseling completed Goal Preventive Visit. Due on Feb due Goal PAP. Due on due Goal Mammogram. Due on due Goal HIV screen due Goal Depression scree trinity. Due on due Goal Depression scree trinity. Due on due Goal PAP. Due on due Goal Preventive Visit. Due on Feb due Goal HIV screen due Goal Mammogram. Due on due Goal Preventive Visit. Due on Feb due Goal Depression scree trinity. Due on due Goal PAP. Due on due Goal HIV screen due Goal Mammogram. Due on due Goal Dietary manageme nt education, guidance, and counseling completed Goal Dietary manageme nt education, guidance, and counseling completed Goal Dietary manageme nt education, guidance, and counseling completed Goal HIV screen due Goal Mammogram. Due on due Goal Depression scree trinity. Due on due Goal PAP. Due on due Goal Preventive Visit. Due on Feb due Goal PAP. Due on due Goal Depression scree trinity. Due on due Goal Mammogram. Due on due Goal Preventive Visit. Due on Feb due Goal HIV screen due Goal Dietary manageme nt education, guidance, and counseling completed Goal Dietary manageme nt education, guidance, and counseling completed Goal Preventive Visit. Due on Feb due Goal HIV screen. Due on due Goal PAP. Due on due Goal PAP. Due on due Goal Depression scree trinity. Due on due Goal Mammogram. Due on due Goal Depression scree trinity. Due on due Goal Mammogram. Due on due Goal Preventive Visit. Due on Feb due Goal HIV screen. Due on due Goal Dietary manageme nt education, guidance, and counseling completed Goal Dietary manageme nt education, guidance, and counseling completed Goal Mammogram. Due on due Goal Preventive Visit. Due on January due Goal Depression scree trinity. Due on due Goal PAP. Due on due Goal Mammogram. Due on due Goal Preventive Visit. Due on January due Goal PAP. Due on due Goal Depression scree trinity. Due on due Goal PAP. Due on due Goal Preventive Visit. Due on Feb due Goal Depression scree trinity. Due on due Goal HIV screen. Due on due Goal Mammogram. Due on due Goal Dietary manageme nt education, guidance, and counseling completed Goal Mammogram. Due on due Goal PAP. Due on due Goal Preventive Visit. Due on January due Goal Depression scree trinity. Due on due Goal Mammogram. Due on due Goal Depression scree trinity. Due on due Goal Preventive Visit. Due on January due Goal PAP. Due on due Goal Mammogram. Due on due Goal PAP. Due on due Goal Depression scree trinity. Due on due Goal Preventive Visit. Due on Feb due Goal HIV screen. Due on due Goal Mammogram. Due on due Goal Depression scree trinity. Due on due Goal PAP. Due on due Goal Preventive Visit. Due on January due Goal Dietary manageme nt education, guidance, and counseling completed Goal Dietary manageme nt education, guidance, and counseling completed Goal Mammogram. Due on 2 due Goal Depression scree trinity. Due on due Goal PAP. Due on due Goal Preventive Visit. Due on January due Goal PAP. Due on due Goal Preventive Visit. Due on January due Goal Depression scree trinity. Due on due Goal Mammogram. Due on 2 due Goal Dietary manageme nt education, guidance, and counseling completed Goal Dietary manageme nt education, guidance, and counseling completed Goal Preventive Visit. Due on January due Goal PAP. Due on due Goal Mammogram. Due on due Goal Depression scree trinity. Due on due Goal Depression scree trinity. Due on due Goal Preventive Visit. Due on January due Goal PAP. Due on due Goal Mammogram. Due on due Goal Dietary manageme nt education, guidance, and counseling completed Goal Dietary manageme nt education, guidance, and counseling completed Goal HIV screen. Due on due Goal Mammogram. Due on due Goal PAP. Due on due Goal Preventive Visit. Due on January due Goal Depression scree trinity. Due on due Goal Dietary manageme nt education, guidance, and counseling completed Goal Tobacco cessation counseling completed Referral Ordered: CR SHOULDER 2 VIEW Right ordered Referral Referred To: Jackie Aguilar [address] [place], [address] [phone] Ordered: Referrals: Neurology. Jackie Aguilar. Consult Appointment date/timeframe: 11/26/2023 ordered Referral Referred To: Mihai Hernandez [address] [place], [place] [phone] Ordered: Referrals: Surgery. Mihai Hernandez. Consult Appointment date/timeframe: 05/20/2023 ordered Referral Referred To: Sam Ruano Jr. [address] [place], [place], [id number] [phone] Ordered: Referrals: Gastroenterology. Sam Ruano Jr.. Consult Appointment date/timeframe: 06/23/2023 ordered Referral Ordered: X-RAY EXAM CHEST 2 VIEWS ordered Referral Referred To: Antonino Cline [address] [place], [address] [phone] Ordered: Referrals: Endocrinology, Diabetes and Metabolism. Antonino Conklin Evaluate and treat Appointment date/timeframe: 10/12/2022 ordered Referral Referred To: Antonino Cline [address] [place] [address], [id number] [phone] Ordered: Referrals: ENT. Antonino Conklin Evaluate and treat ordered Referral Referred To: Cedrick Lam [address] [place], [address] [phone] Ordered: Referrals: Oral Maxillofacial Surgery. Cedrick Lam. Evaluate and treat Appointment date/timeframe: 03/23/2022 ordered Referral Referred To: Stephon Sanchez [address] [place] [address], [id number] [phone] Ordered: Referrals: Neurology. Stephon Sanchez. Evaluate and treat Appointment date/timeframe: 04/28/2022 ordered Future Order: Lab Order Drug Scr een IH UDS/BUP (495), Ordered on: Ordered Future Order: Lab Order HIV 4th ([id number]), Scheduled for: Ordered Future Order: Lab Order H Pylori , IgM, IgG, IgA ([id number]), Collected on: , Sent on: Sent Future Order: Lab Order HIV 4th ([id number]), Collected on: , Sent on: Sent Future Order: Lab Order COMPREHE NSIVE METABOLIC PANEL (120), Ordered on: Ordered Future Order: Lab Order Hemo A1C WB ([id number]), Ordered on: Ordered History Of Present Illness Encounter Date Complaint History Of Prese nt Illness shoulder pain It occurs consta ntly and is worsening. Location: right shoulder. The pain is aching. Context: there is no injury. The pain is aggravated by movement. There are no relieving factors. Associated symptoms include nocturnal awakening, nocturnal pain, numbness, spasms and weakness. Pertinent negatives include bruising, crepitus, decreased mobility, difficulty initiating sleep, joint instability, joint tenderness, limping, locking, popping, swelling, tingling in the arms and tingling in the legs. Neuropathy Onset was gradua l. Severity level is moderate. Relieving factors include medication (Gabapentin). Associated symptoms include restlessness and tingling. Pertinent negatives include agitation, ataxia, bladder incontinence, bowel dysfunction, chorea, confusion, dizziness, dysarthria, dysphagia, falling, fever, hallucinations, headache, hyperacusis, motor weakness, neck stiffness, nocturnal paresthesias, paresthesia, personality changes, tremors, vertigo and visual disturbances. Back pain The problem is s table. It occurs persistently. Location of pain is lower back. Pain is radiated to the left thigh and right thigh. The client describes the pain as discomforting. Context: no injury. Symptoms are aggravated by daily activities. Symptoms are relieved by pain meds/drugs. Back pain The problem is s table. It occurs persistently. Location of pain is lower back. Pain is radiated to the left thigh and right thigh. The client describes the pain as discomforting. Context: no injury. Symptoms are aggravated by daily activities. Symptoms are relieved by pain meds/drugs. back pain The problem is s table. It occurs persistently. Location of pain is lower back. Pain is radiated to the left thigh and right thigh. The client describes the pain as discomforting. Context: no injury. Symptoms are aggravated by daily activities. Symptoms are relieved by pain meds/drugs. MAT Follow-up Back pain The problem is s table. It occurs persistently. Location of pain is lower back. Pain is radiated to the left thigh and right thigh. The client describes the pain as discomforting. Context: no injury. Symptoms are aggravated by daily activities. Symptoms are relieved by pain meds/drugs. Neuropathy Onset was gradua l. Severity level is moderate. Relieving factors include medication (Gabapentin). Associated symptoms include restlessness and tingling. Pertinent negatives include agitation, ataxia, bladder incontinence, bowel dysfunction, chorea, confusion, dizziness, dysarthria, dysphagia, falling, fever, hallucinations, headache, hyperacusis, motor weakness, neck stiffness, nocturnal paresthesias, paresthesia, personality changes, vertigo and visual disturbances. Back pain The problem is s table. It occurs persistently. Location of pain is lower back. Pain is radiated to the left thigh and right thigh. The client describes the pain as discomforting. Context: no injury. Symptoms are aggravated by daily activities. Symptoms are relieved by pain meds/drugs. headache The severity of the problem is moderate. The problem has worsened. The symptoms are intermittent. Locations affected include entire head. Pertinent negatives include blurred vision, diplopia, dizziness, fever, hemianopsia left, hemianopsia right, loss of consciousness, memory impairment, nausea, personality changes, phonophobia, photophobia, neck stiffness, vision loss left, vision loss right, visual aura, vertigo and vomiting. MAT Induction MAT Induction. T he addiction began 38 years ago. Date of initial visit: 09/22/2023. Duration of addiction is 38 Years. Severity level is 10 and pain level is 8/10. The status has worsened. The frequency of use occurs intermittently. Confirm and Consent: Gabriella Chris presents today for MAT induction. Substance use history was reviewed and updated. She Desires medication assisted treatment with buprenorphine and naloxone. She picked up prescription and brought it to this appointment. She was instructed in the proper use of medication and long-term treatment per practice protocol. long-term treatment has been discussed with the patient as well as the risks and benefits. Consent for induction signed. Pt reviewed/ signed the following: Random Drug Scr Agree, BH Tmt Consent, Preg doc, MAT Tmt rules Pt records from previous treatment will be requested utilizing signed MIRANDA, if applicable. and BH in last Month.. Induction note: Begin MAT induction with Meenakshi Biswas.. MAT Follow-up MAT follow-up. T he status has improved. No associated medication side effect. No withrawal symptoms. Compliance: Drug Test completed, BH in last Month, UDS today WNL and Last Confirmation WNL. No aberrant behavior. Comments: -Pt progress: stable-Adverse Events Since Last Visit: Denied-Pt will RTC: weekly. cough Onset: 3 weeks a go. The patient describes the cough as hacking and productive (of yellow sputum). Context: allergies. Symptoms are aggravated by allergens. There are no relieving factors. Associated symptoms include cough, nasal congestion, post-nasal drainage, rhinitis and rhinorrhea. Pertinent negatives include chills, dyspnea, dyspnea on exertion, epistaxis, fatigue, fever, heartburn, hemoptysis, hoarseness, night sweats, pleuritic pain, sinus pressure, sore throat, weight loss and wheezing. diabetes Associated sympt oms include: increased fatigue. Pertinent negatives include blurred vision, chest pain, constant hunger, diarrhea, dyspnea, foot ulcers, frequent infections, urinary frequency, hypoglycemic episodes, slow healing wounds / sores, weight gain and weight loss. Additional information: Patient states she ran out of insulin over the weekend. She states she has not been receiving her Ronald sensors in the mail as she previously was.. diabetes Back pain The problem is s table. It occurs persistently. Location of pain is lower back. Pain is radiated to the left thigh and right thigh. The client describes the pain as discomforting. Context: no injury. Symptoms are aggravated by daily activities. Symptoms are relieved by pain meds/drugs. abdominal pain The severity of the problem is mild. The problem has worsened. The symptoms are intermittent. The location is epigastric. The patient reports radiation to the back. The quality of the pain is achy, burning and colicky. These symptoms occur after meals. Aggravating factors include anxiety, milk/dairy products and movement. The patient denies relieving factors. Associated symptoms include bloating, change in appetite and heartburn. Pertinent negatives include back pain, blood in stool, constipation, diaphoresis, diarrhea, dizziness, dyspnea, eructation, fever, flank pain, flatulence, hematuria, jaundice, lightheadedness, myalgia, nausea, rash, vaginal bleeding, vaginal discharge, vomiting, weight gain and weight loss. Additional information: +dyspepsia. back pain The problem is s table. It occurs persistently. Location of pain is lower back. Pain is radiated to the left thigh and right thigh. The client describes the pain as discomforting. Context: no injury. Symptoms are aggravated by daily activities. Symptoms are relieved by pain meds/drugs. MAT Follow-up MAT follow-up. T he status has improved. No associated medication side effect. No withrawal symptoms. Compliance: Drug Test completed, BH in last Month, UDS today WNL and Last Confirmation WNL. No aberrant behavior. Comments: -Pt progress: stable-Adverse Events Since Last Visit: Denied-Pt will RTC: weekly. depression There is improve ment of initial symptoms. The client reports functioning as not difficult at all. The client presents with loss of appetite but denies thoughts of or suicide. The depression is aggravated by conflict or stress and traumatic memories. The client's relieving factors are medication. The client denies any nausea, sweating, vomiting and weight gain. abdominal pain The severity of the problem is moderate. The problem has worsened. The symptoms are intermittent. The location is left upper quadrant. The quality of the pain is achy, burning and stabbing. Associated symptoms include change in appetite, diarrhea and nausea. Pertinent negatives include back pain, bloating, blood in stool, constipation, diaphoresis, dizziness, dyspnea, eructation, fever, flank pain, flatulence, heartburn, hematuria, jaundice, lightheadedness, myalgia, rash, vaginal bleeding, vaginal discharge, vomiting, weight gain and weight loss. Cough The client descr ibes the cough as hacking and moist. It occurs persistently. The problem has become gradually worse. Context: allergies. Symptoms are aggravated by exertion and lying down. There are no relieving factors. Associated symptoms include cough, post-nasal drainage and sinus pressure. Pertinent negatives include chills, dyspnea, dyspnea on exertion, epistaxis, fatigue, fever, heartburn, hemoptysis, hoarseness, nasal congestion, night sweats, pleuritic pain, rhinitis, rhinorrhea, sore throat, weight loss and wheezing. MAT Follow-up MAT follow-up. T he status has improved. No associated medication side effect. No withrawal symptoms. Compliance: Drug Test completed, BH in last Month, Tx Milestones Reviewed, Labs within last 6 months, UDS today WNL and Last Confirmation WNL. No aberrant behavior. Comments: -Pt progress: stable-Adverse Events Since Last Visit: Denied -Pt will RTC: two weeks. SCOUT MAT Follow-up MAT follow-up. W ithrawal symptoms do not include chills, diarrhea, dilated pupils, discontent, excessive yawning, nausea and vomitting. Medication side effects do not include back pain, blurry vision, constipation, dizziness, drowsiness, fatigue, feeling faint, headache, irregular heartbeat, numbness in mouth, painful tongue and problems concentrating. Compliance: Drug Test completed, BH in last Month, Tx Milestones Reviewed and Labs within last 6 months. Aberrant behavior includes Anxiety. Aberrant behavior does not include Itchy/Watery eyes, Body Aches, Tremors. Comments: Adverse Events: Psychiatric Complications, recent Relapse, Environmental Stressors, Family Stressors, Relationship Stressors, Grief. Response to Adverse Event: Reviewed and adjusted relapse prevention plan and increased visit frequency, Patient will RTC in 1 week. MAT Follow-up MAT follow-up. T he status has improved. Withrawal symptoms do not include nausea, tremors and vomitting. No associated medication side effect. No withrawal symptoms. Compliance: Drug Test completed, BH in last Month, Tx Milestones Reviewed, UDS today WNL and Last Confirmation WNL. No aberrant behavior. Comments: -Pt progress: stable-Adverse Events Since Last Visit: Denied-Pt will RTC: one weekcovering for Meenakshi. dysuria Location is supr apubic. The client describes it as hesitance, sharp. It occurs daily. The problem is worse. Denies relieving factors. MAT Follow-up MAT follow-up. I nduction date: 01/21/2023. Pain level is 0/10. The status has not changed. Last fill date: 01/21/2023. No associated medication side effect. No withrawal symptoms. Compliance: Drug Test completed, BH in last Month, Monthly HCG, Tx Milestones Reviewed, Yearly Review Completed, Labs within last 6 months and UDS today WNL. No aberrant behavior. Diabetes Pertinent negati ves include blurred vision, burning of extremities, chest pain, constant hunger, dental disease, diarrhea, dysesthesias, dyspnea, foot ulcers, frequent infections, urinary frequency, heartburn, hypoglycemic episodes, increased fatigue, nocturia, polydipsia, slow healing wounds / sores, weight gain and weight loss. GERD The severity of the problem is moderate. The symptoms are recurring. The location is epigastric. The quality of the pain is achy. Pertinent negatives include blood in stool, constipation, diarrhea, dyspnea, fever, heartburn, hematuria, nausea, rash, vomiting, weight gain and weight loss. Diabetes Client is compli ant with using medication. Pertinent negatives include blurred vision, chest pain, constant hunger, diarrhea, dyspnea, foot ulcers, frequent infections, urinary frequency, hypoglycemic episodes, increased fatigue, slow healing wounds / sores, weight gain and weight loss. Additional information: Patient states she has been taking her medications as prescribed and is tolerating them well.. shortness of breath In the inter jeromy 2 weeks ago Episodes occur daily. The patient notes chest pressure. Symptom is aggravated by mild activity (eg. walking). Denies relieving factors. Pertinent negatives include anxiety, chest pressure/discomfort, chills, dry cough, excessive sputum, fatigue, fever, hemoptysis, lower extremity edema, neuromuscular weakness, night sweats, pleuritic pain, productive cough, purulent sputum, stridor, substernal chest pain, thromboembolic events, unilateral leg edema and wheezing. diabetes Client is compli ant with using medication. Pertinent negatives include blurred vision, chest pain, constant hunger, diarrhea, dyspnea, foot ulcers, frequent infections, urinary frequency, hypoglycemic episodes, increased fatigue, slow healing wounds / sores, weight gain and weight loss. Additional information: Patient states she has been taking her medications as prescribed and is tolerating them well.. diabetes Client is compli ant with using medication. Pertinent negatives include blurred vision, chest pain, constant hunger, diarrhea, dyspnea, foot ulcers, frequent infections, urinary frequency, hypoglycemic episodes, increased fatigue, slow healing wounds / sores, weight gain and weight loss. Additional information: Patient states her glucose levels have been in the 200-300 range. She states she has been taking her medications as prescribed.. diabetes Client is compli ant with using medication. Pertinent negatives include blurred vision, chest pain, constant hunger, diarrhea, dyspnea, foot ulcers, frequent infections, urinary frequency, hypoglycemic episodes, increased fatigue, slow healing wounds / sores, weight gain and weight loss. Additional information: Patient states she has been keeping her glucose consistently less than 200 since her last appointment.. diabetes Client is compli ant with using medication. Associated symptoms include: polydipsia. Pertinent negatives include blurred vision, chest pain, constant hunger, diarrhea, dyspnea, foot ulcers, frequent infections, urinary frequency, hypoglycemic episodes, slow healing wounds / sores, weight gain and weight loss. Additional information: Patient states she has been taking her 75/25 as prescribed but that she has not been monitoring her glucose at home.. Cough Onset: 5 days ag o. The client describes the cough as dry, hacking and non-productive. It occurs persistently. The problem has become gradually worse. Context: COPD. Symptoms are aggravated by lying down. Associated symptoms include cough, dyspnea on exertion, nasal congestion, post-nasal drainage and wheezing. Pertinent negatives include chills, dyspnea, epistaxis, fever, hemoptysis, hoarseness, night sweats, pleuritic pain, sinus pressure, sore throat and weight loss. Diabetes The problem is g etting worse. Pertinent negatives include blurred vision, burning of extremities, chest pain, constant hunger, dental disease, diarrhea, dysesthesias, dyspnea, foot ulcers, frequent infections, urinary frequency, heartburn, hypoglycemic episodes, increased fatigue, nocturia, polydipsia, slow healing wounds / sores, weight gain and weight loss. Additional information: states has not had glucometer and states feels like diabetes getting worse. MAT MAT Patient presente d today for scheduled refill. Patient submitted drug screen, negative for suboxone so swab will be ordered. Patient does regular counseling with . Patient prescribed suboxone 8/2mg tablet, take 2 films SL daily #42. MAT Patient presente d today for scheduled refill. Patient submitted drug screen, negative for suboxone so swab will be ordered. Patient does regular counseling with . Patient prescribed suboxone 8/2mg tablet, take 2 films SL daily #28. Give extra week of medication due to holiday MAT The symptoms are reported as being severe. The symptoms occur constantly. The client states the symptoms are chronic. Patient presented today for scheduled refill. Patient submitted drug screen, negative for suboxone so swab will be ordered. Patient does regular counseling with . Patient prescribed suboxone 8/2mg tablet, take 2 films SL daily #14. Patient will follow up in one week with pcp. MAT Pt presented tojun[facility] for scheduled refill. Pt submitted urine drug screen. Pt met with [facility]. Denies any illicit drug relapses. Pt continues to show progress toward treatment goals and medication will be continued with no changes. Pt prescribed Suboxone 8mg film, take 2 films daily #14. Patient will follow up as scheduled. MAT Pt presented tod ay for scheduled refill. Pt submitted urine drug screen. Pt met with [facility]. Denies any illicit drug relapses. Pt continues to show progress toward treatment goals and medication will be continued with no changes. Pt prescribed Suboxone 8mg film, take 2 films daily #56. Patient will follow up as scheduled.patient believes sister who is active addict slipped her opioid diabetes Patient is compl iant with using medication. Pertinent negatives include blurred vision, chest pain, constant hunger, diarrhea, dyspnea, foot ulcers, frequent infections, urinary frequency, hypoglycemic episodes, increased fatigue, slow healing wounds / sores, weight gain and weight loss. Additional information: Patient states that her glucose is typically high and that she only has lows when she is sick.. MAT Pt presented tojunior for scheduled refill. Pt submitted urine drug screen. Pt met with [facility]. Denies any illicit drug relapses. Pt continues to show progress toward treatment goals and medication will be continued with no changes. Pt prescribed Suboxone 8mg film, take 2 films daily #56. Patient will follow up as scheduled. substance abuse MAT The symptoms are reported as being moderate. The symptoms occur randomly. The client states the symptoms are chronic. Pt presented today for scheduled refill. Pt submitted urine drug screen. Pt met with [facility]. Denies any illicit drug relapses. Pt continues to show progress toward treatment goals and medication will be continued with no changes. Pt prescribed Suboxone 8mg film, take 2 films daily #42. Patient will follow up as scheduled. MAT The symptoms are reported as being moderate. Patient presents for scheduled refill. UDS submitted. Has met with [facility]. Denies relapse. Patient to continue on current dose of buprenorphine 8mg-naloxone 2mg 2 films SL once a day, dispense #38, no refills. SANJUANA appropriate. Follow up as scheduled or sooner if needed, RTC or ER prn. MAT Patient presents for scheduled refill. UDS submitted. Has met with [facility]. Denies relapse. Patient to continue on current dose of buprenorphine 8mg-naloxone 2mg 2 films SL once a day, dispense #38, no refills. SANJUANA appropriate. Follow up as scheduled or sooner if needed, RTC or ER prn. substance abuse substance abuse MAT The symptoms are reported as being moderate. Patient presents for scheduled refill. UDS submitted. Has met with [facility]. Denies relapse. Patient to continue on current dose of buprenorphine 8mg-naloxone 2mg 2 films SL once a day, dispense #28, no refills. SANJUANA appropriate. Follow up in 2 weeks or sooner if needed, RTC or ER prn. MAT The symptoms are reported as being moderate. Patient presents for scheduled refill. UDS submitted. Has met with [facility]. Denies relapse. Patient to continue on current dose of buprenorphine 8mg-naloxone 2mg 2 films SL once a day, dispense #28, no refills. SANJUANA appropriate. Follow up in 2 weeks or sooner if needed, RTC or ER prn. substance abuse MAT Patient presents for scheduled refill. UDS submitted. Has met with [facility]. Denies relapse. Patient to continue on current dose of buprenorphine 8mg-naloxone 2mg 2 films SL once a day, dispense #14, no refills. SANJUANA appropriate. Follow up in 1 week or sooner if needed, RTC or ER prn. Denies relapse, states rubbed crushed up pain pill on gum for relief preventive exam woman Currently : no.Client is not contemplating . Negative for: breast discharge, breast lump(s) and breast pain. Positive for: breast self exam. Associated symptoms include anxiety. Pertinent negatives include history of infertility, nocturia, sexual dysfunction, sleep disturbances, urinary incontinence and urinary urgency. The client does use tobacco. She formerly drank alcohol. MAT The symptoms are reported as being moderate. Patient presents for scheduled refill. UDS submitted. Has met with [facility]. Denies relapse. Patient to continue on current dose of buprenorphine 8mg-naloxone 2mg 2 films SL once a day, dispense #10, no refills. SANJUANA appropriate. Follow up in 5 days or sooner if needed, RTC or ER prn MAT Patient presents for scheduled refill. UDS submitted. Has met with [facility]. Denies relapse. Patient to continue on current dose of buprenorphine 8mg-naloxone 2mg 2 films SL once a day, dispense #14, no refills. [facility] appropriate. Follow up in 1 week or sooner if needed, RTC or ER prn substance abuse MAT MAT Patient presents for scheduled refill. States there was an issue with scheduled transportation. Needs to come in for UDS. [facility] to do ZOOM appointment for visit. Denies relapse. Patient to continue on current dose of buprenorphine 8mg-naloxone 2mg 2 films SL once a day, dispense #14, no refills. SANJ[facility]NA appropriate. Follow up in 1 week or sooner if needed, RTC or ER prn MAT Patient presents for MAT Day 3 Induction. See scanned in form for COWS score. UDS performed today. Has met with [facility]. MAT Patient presents for MAT Day 2 induction. Has met with [facility]. [facility]NA appropriate. UDS performed today. See scanned in COWS assessment MAT Patient presents for MAT Day 1 induction. UDS performed, positive for opioids. Patient met with behavioral health counselor. COWS score 21 per behavioral health counselor. Patient to begin on buprenorphine 8mg-naloxone 2 mg 1 film SL daily, dispense #1, no refills. SANJUANA appropriate, follow up tomorrow for Day 2 MAT induction. substance abuse Patient presents with complaint of wanting to join MAT program at [facility]. was kicked out of treatment clinic last month at [facility] in [place]. [facility] she lost her mother in October and relapsed soon after. has history of use of cocaine, benzodiazapine, and opioids. Denies IV drug use history. has taken 40-50 lortabs over the past 3-4 days Functional Status Date Functional Assessmen t No Information Instructions Date Instruction Additional Infor mation xr pending keep ext elevated wrap with onel bandage heat/ice compresses rotate tylenol and ibuprofen for pain Follow up in one week to discuss results Related to Pain, joint, shoulder, right PRESCRIPTION GIVEN T O PATIENT WITH NO REFILL. Patient has a signed contract for controlled substances. Up to date on [facility]. Need Urine Drug Screen. Patient aware of the side effects and denies any. Treatment goals discussed with the patient. Alternative treatment options discussed with patient. Patient verbalizes understanding of all discussions and instructions. Maintain adequate rest. May use frsc-lvu-bymlgym acetaminophen or ibuprofen. The patient was advised to call the office if symptoms worsen or do not improve. The patient verbalized an understanding of the plan. Related to Neuropathy PRESCRIPTION GIVEN T O PATIENT WITH NO REFILL. Patient has a signed contract for controlled substances. Up to date on [facility]. Need Urine Drug Screen. Patient aware of the side effects and denies any. Treatment goals discussed with the patient. Alternative treatment options discussed with patient. Patient verbalizes understanding of all discussions and instructions. Maintain adequate rest. May use smip-bld-ixdduqw acetaminophen or ibuprofen. The patient was advised to call the office if symptoms worsen or do not improve. The patient verbalized an understanding of the plan. Related to Neuropathy Dietary management e ducation, guidance, and counseling Related to Dietary Surveillance and Counseling Prescribed activity/exercise edu cation Related to Prescribed Activity/Exercise Counseling PRESCRIPTION GIVEN T O PATIENT WITH NO REFILL. Patient has a signed contract for controlled substances. Up to date on [facility]. Need Urine Drug Screen. Patient aware of the side effects and denies any. Treatment goals discussed with the patient. Alternative treatment options discussed with patient. Patient verbalizes understanding of all discussions and instructions. Maintain adequate rest. May use xwkq-tvh-bofjluu acetaminophen or ibuprofen. The patient was advised to call the office if symptoms worsen or do not improve. The patient verbalized an understanding of the plan. Related to Neuropathy Prescribed activity/exercise edu cation Related to Prescribed Activity/Exercise Counseling Dietary management e ducation, guidance, and counseling Related to Dietary Surveillance and Counseling PRESCRIPTION GIVEN T O PATIENT WITH NO REFILL. Patient has a signed contract for controlled substances. Up to date on [facility]. Need Urine Drug Screen. Patient aware of the side effects and denies any. Treatment goals discussed with the patient. Alternative treatment options discussed with patient. Patient verbalizes understanding of all discussions and instructions. Maintain adequate rest. May use ipug-npe-pflfntz acetaminophen or ibuprofen. The patient was advised to call the office if symptoms worsen or do not improve. The patient verbalized an understanding of the plan. Related to Neuropathy Prescribed activity/exercise edu cation Related to Prescribed Activity/Exercise Counseling Dietary management e ducation, guidance, and counseling Related to Dietary Surveillance and Counseling Dietary management e ducation, guidance, and counseling Related to Dietary Surveillance and Counseling Prescribed activity/exercise edu cation Related to Prescribed Activity/Exercise Counseling PRESCRIPTION GIVEN T O PATIENT WITH NO REFILL. Patient has a signed contract for controlled substances. Up to date on [facility]. Need Urine Drug Screen. Patient aware of the side effects and denies any. Treatment goals discussed with the patient. Alternative treatment options discussed with patient. Patient verbalizes understanding of all discussions and instructions. Maintain adequate rest. May use cwqf-cmb-rmbtbyr acetaminophen or ibuprofen. The patient was advised to call the office if symptoms worsen or do not improve. The patient verbalized an understanding of the plan. Related to Neuropathy Prescribed activity/exercise edu cation Related to Prescribed Activity/Exercise Counseling Dietary management e ducation, guidance, and counseling Related to Dietary Surveillance and Counseling PRESCRIPTION GIVEN T O PATIENT WITH NO REFILL. Patient has a signed contract for controlled substances. Up to date on [facility]. Need Urine Drug Screen. Patient aware of the side effects and denies any. Treatment goals discussed with the patient. Alternative treatment options discussed with patient. Patient verbalizes understanding of all discussions and instructions. Maintain adequate rest. May use ycow-fgr-huwcech acetaminophen or ibuprofen. The patient was advised to call the office if symptoms worsen or do not improve. The patient verbalized an understanding of the plan. Related to Neuropathy Prescribed activity/exercise edu cation Related to Prescribed Activity/Exercise Counseling Dietary management e ducation, guidance, and counseling Related to Dietary Surveillance and Counseling PRESCRIPTION GIVEN T O PATIENT WITH NO REFILL. Patient has a signed contract for controlled substances. Up to date on [facility]. Need Urine Drug Screen. Patient aware of the side effects and denies any. Treatment goals discussed with the patient. Alternative treatment options discussed with patient. Patient verbalizes understanding of all discussions and instructions. Maintain adequate rest. May use ohcc-rwp-hsjjqvl acetaminophen or ibuprofen. The patient was advised to call the office if symptoms worsen or do not improve. The patient verbalized an understanding of the plan. Related to Neuropathy Prescribed activity/exercise edu cation Related to Prescribed Activity/Exercise Counseling Dietary management e ducation, guidance, and counseling Related to Dietary Surveillance and Counseling PRESCRIPTION GIVEN T O PATIENT WITH NO REFILL. Patient has a signed contract for controlled substances. Up to date on [facility]. Need Urine Drug Screen. Patient aware of the side effects and denies any. Treatment goals discussed with the patient. Alternative treatment options discussed with patient. Patient verbalizes understanding of all discussions and instructions. Maintain adequate rest. May use jyed-pwi-wtrsnsg acetaminophen or ibuprofen. The patient was advised to call the office if symptoms worsen or do not improve. The patient verbalized an understanding of the plan. Related to Neuropathy Refer to [facility] Covering for Meenakshi Related to Opioid use disorder, moderate, dependence Prescribed activity/exercise edu cation Related to Prescribed Activity/Exercise Counseling Dietary management e ducation, guidance, and counseling Related to Dietary Surveillance and Counseling Monitor nutrition in take, including carbohydrates and calories. Discuss any significant diet changes with the provider before initiating. Related to Dietary counseling and surveillance See dietary and exercise psychosocial rehabilitation counselor ing. Related to Body mass index (BMI) 34.0-34.9, adult Stop 75/25 and R ins ulin. Start Lantus 55 units daily. Start Humalog 25 units TID with meals. Follow up in 1 week. Call or return to clinic sooner than scheduled if needed. Related to Type 2 diabetes mellitus with hyperglycemia, with long-term current use of insulin Physical activity go al is 30 minutes daily x5-7 days per week. Monitor blood glucose before, during, and after physical activity. Keep rapid acting carbohydrate readily available in case of low blood glucose. Seek medical attention with any shortness of air, chest pain/discomfort, dizziness, or difficulty breathing. Related to Prescribed Activity/Exercise Counseling Takes meds as ordere dAvoid smoke and stay indoors during hot and humid conditionsDiscussed disease process and treatment plan.RTC as scheduled or PRN. Related to Acute bronchitis, unspecified organism Dietary management e ducation, guidance, and counseling Related to Dietary Surveillance and Counseling Prescribed activity/exercise edu cation Related to Prescribed Activity/Exercise Counseling Prescribed activity/exercise edu cation Related to Prescribed Activity/Exercise Counseling Dietary management e ducation, guidance, and counseling Related to Dietary Surveillance and Counseling Dietary management e ducation, guidance, and counseling Related to Dietary Surveillance and Counseling Prescribed activity/exercise edu cation Related to Prescribed Activity/Exercise Counseling PRESCRIPTION GIVEN T O PATIENT WITH NO REFILL. Patient has a signed contract for controlled substances. Up to date on [facility]. Need Urine Drug Screen. Patient aware of the side effects and denies any. Treatment goals discussed with the patient. Alternative treatment options discussed with patient. Patient verbalizes understanding of all discussions and instructions. Maintain adequate rest. May use llnq-sqh-ddiaowc acetaminophen or ibuprofen. The patient was advised to call the office if symptoms worsen or do not improve. The patient verbalized an understanding of the plan. Related to Neuropathy Prescribed activity/exercise edu cation Related to Prescribed Activity/Exercise Counseling Dietary management e ducation, guidance, and counseling Related to Dietary Surveillance and Counseling PRESCRIPTION GIVEN T O PATIENT WITH NO REFILL. Patient has a signed contract for controlled substances. Up to date on [facility]. Need Urine Drug Screen. Patient aware of the side effects and denies any. Treatment goals discussed with the patient. Alternative treatment options discussed with patient. Patient verbalizes understanding of all discussions and instructions. Maintain adequate rest. May use rppw-wzg-ajljkbl acetaminophen or ibuprofen. The patient was advised to call the office if symptoms worsen or do not improve. The patient verbalized an understanding of the plan. Related to Neuropathy Patient observed for 120 minutes. Vital signs WNL. Patient left with driver education road instructor. Patient denies SI, HI, AVH at this time. Patient advised to call 911 or go to nearest ED to be evaluated if mental health emergency arises and patient verbalized understanding. Related to Major depressive disorder, recurrent, moderate Refer to [facility] Covering for Meen[place]shi Related to Opioid use disorder, moderate, dependence Prescribed activity/exercise edu cation Related to Prescribed Activity/Exercise Counseling Dietary management e ducation, guidance, and counseling Related to Dietary Surveillance and Counseling Prescribed activity/exercise edu cation Related to Prescribed Activity/Exercise Counseling Dietary management e ducation, guidance, and counseling Related to Dietary Surveillance and Counseling Dietary management e ducation, guidance, and counseling Related to Dietary Surveillance and Counseling Prescribed activity/exercise edu cation Related to Prescribed Activity/Exercise Counseling Dietary management e ducation, guidance, and counseling Related to Dietary Surveillance and Counseling Prescribed activity/exercise edu cation Related to Prescribed Activity/Exercise Counseling pt hx bowel resectio n and reports worsening abd pain today defers labs and XR and states that she is too anxious today and wishes to go home requesting referral to GI dr Encouraged pt to go to the ER if symptoms worsen or persist Related to Generalized abdominal pain Dietary management e ducation, guidance, and counseling Related to Dietary Surveillance and Counseling Prescribed activity/exercise edu cation Related to Prescribed Activity/Exercise Counseling Increase fluids Add humidification Follow medication regimen as instructed Follow up with PCP next week ER with persistent fever, worsening cough/soa, pt aware. Related to URI, acute Refer to [facility] covering for Meenakshi Related to Opioid use disorder, moderate, dependence Prescribed activity/exercise edu cation Related to Prescribed Activity/Exercise Counseling Dietary management e ducation, guidance, and counseling Related to Dietary Surveillance and Counseling Patient observed for 120 minutes. Vital signs WNL. Patient left with driver education road instructor. Patient denies SI, HI, AVH at this time. Patient advised to call 911 or go to nearest ED to be evaluated if mental health emergency arises and patient verbalized understanding. Related to Major depressive disorder, recurrent, moderate Adverse Events: rece nt Relapse, Family Stressors, Relationship Stressors, Grief. Response to Adverse Event: Reviewed and adjusted relapse prevention plan and increased visit frequencycontinue current dose of suboxoneKASPER appropriate Patient will RTC in 1 week Related to Opioid use disorder, moderate, dependence Prescribed activity/exercise edu cation Related to Prescribed Activity/Exercise Counseling Dietary management e ducation, guidance, and counseling Related to Dietary Surveillance and Counseling increase fluids disc ussed hand hygiene and perianal hygiene ER if symptoms persist, pt aware Related to Acute UTI Refer to [facility] Related to Opioi d use disorder, moderate, dependence Prescribed activity/exercise edu cation Related to Prescribed Activity/Exercise Counseling Dietary management e ducation, guidance, and counseling Related to Dietary Surveillance and Counseling Prescribed activity/exercise edu cation Related to Prescribed Activity/Exercise Counseling Dietary management e ducation, guidance, and counseling Related to Dietary Surveillance and Counseling Prescribed activity/exercise edu cation Related to Prescribed Activity/Exercise Counseling Dietary management e ducation, guidance, and counseling Related to Dietary Surveillance and Counseling Prescribed activity/exercise edu cation Related to Prescribed Activity/Exercise Counseling Dietary management e ducation, guidance, and counseling Related to Dietary Surveillance and Counseling Prescribed activity/exercise edu cation Related to Prescribed Activity/Exercise Counseling Dietary management e ducation, guidance, and counseling Related to Dietary Surveillance and Counseling Discussed diet, exer cise, disease process, medication, and signs of worsening illness. Instructed to take medication as prescribed, follow up in 1 month for eval or sooner if symptoms worsen or do not improve, RTC or ER prn. Related to Type 2 diabetes mellitus with hyperglycemia, with long-term current use of insulin Dietary management e ducation, guidance, and counseling Related to Dietary Surveillance and Counseling Prescribed activity/exercise edu cation Related to Prescribed Activity/Exercise Counseling Assisted patient howie h [employer] Ronald CGM placement - discussed with patient - she voiced understanding. Continue current treatment regimen at this time. Follow up with diabetes education nurse. Follow up with me in 2-3 months. Call or return to clinic sooner than scheduled if needed. Related to Type 2 diabetes mellitus with hyperglycemia, with long-term current use of insulin See dietary and exercise psychosocial rehabilitation counselor ing. Related to Body mass index (BMI) 34.0-34.9, adult Physical activity go al is 30 minutes daily x5-7 days per week. Monitor blood glucose before, during, and after physical activity. Keep rapid acting carbohydrate readily available in case of low blood glucose. Seek medical attention with any shortness of air, chest pain/discomfort, dizziness, or difficulty breathing. Related to Prescribed Activity/Exercise Counseling Monitor nutrition in take, including carbohydrates and calories. Discuss any significant diet changes with the provider before initiating. Related to Dietary counseling and surveillance Dietary management e ducation, guidance, and counseling Related to Dietary Surveillance and Counseling Prescribed activity/exercise edu cation Related to Prescribed Activity/Exercise Counseling Prescribed activity/exercise edu cation Related to Prescribed Activity/Exercise Counseling Dietary management e ducation, guidance, and counseling Related to Dietary Surveillance and Counseling Prescribed activity/exercise edu cation Related to Prescribed Activity/Exercise Counseling Dietary management e ducation, guidance, and counseling Related to Dietary Surveillance and Counseling Prescribed activity/exercise edu cation Related to Prescribed Activity/Exercise Counseling Dietary management e ducation, guidance, and counseling Related to Dietary Surveillance and Counseling See dietary and exercise psychosocial rehabilitation counselor ing. Related to Body mass index (BMI) 32.0-32.9, adult Physical activity go al is 30 minutes daily x5-7 days per week. Monitor blood glucose before, during, and after physical activity. Keep rapid acting carbohydrate readily available in case of low blood glucose. Seek medical attention with any shortness of air, chest pain/discomfort, dizziness, or difficulty breathing. Related to Prescribed Activity/Exercise Counseling Monitor nutrition in take, including carbohydrates and calories. Discuss any significant diet changes with the provider before initiating. Related to Dietary counseling and surveillance [employer] Ronald PRO CGM download and interpretation performed - discussed glucose levels with patient. Discussed need to take medications as prescribed - she voiced understanding. Patient to follow up with [facility] for [employer] Ronald CGM then bring Ronald to clinic for assistance with initial set up. Call or return to clinic sooner if needed. Related to Type 2 diabetes mellitus with hyperglycemia, with long-term current use of insulin CXR today pending of fered pt IV ABX and steroids deferred at this time and endorsed that she is going to workAdd doxycycline and pred dose pack RTC or er if symptoms worsen or persistencouraged pt to adjust sliding scale d/t steroids and pt aware Related to Shortness of breath Dietary management e ducation, guidance, and counseling Related to Dietary Surveillance and Counseling Prescribed activity/exercise edu cation Related to Prescribed Activity/Exercise Counseling Dietary management e ducation, guidance, and counseling Related to Dietary Surveillance and Counseling Prescribed activity/exercise edu cation Related to Prescribed Activity/Exercise Counseling Continue current randy atment regimen. Discussed with patient that importance of taking all insulin injections as prescribed - she voiced understanding. [employer] Ronald PRO CGM to be applied today. Patient to see diabetes education nurse today. Follow up with me in 1-2 weeks. Call or return t clinics sooner than scheduled if needed. Patient would benefit from a CGM for home use based on treatment regimen of 4 or more daily injections of insulin that vary in dose based on glucose level, activity level, and food intake. Patient is monitoring blood glucose 3-5 times daily to make these treatment regimen decisions. Related to Type 2 diabetes mellitus with hyperglycemia, with long-term current use of insulin See dietary and exercise psychosocial rehabilitation counselor ing. Related to Body mass index (BMI) 33.0-33.9, adult Physical activity go al is 30 minutes daily x5-7 days per week. Monitor blood glucose before, during, and after physical activity. Keep rapid acting carbohydrate readily available in case of low blood glucose. Seek medical attention with any shortness of air, chest pain/discomfort, dizziness, or difficulty breathing. Related to Prescribed Activity/Exercise Counseling Monitor nutrition in take, including carbohydrates and calories. Discuss any significant diet changes with the provider before initiating. Related to Dietary counseling and surveillance Dietary management e ducation, guidance, and counseling Related to Dietary Surveillance and Counseling Prescribed activity/exercise edu cation Related to Prescribed Activity/Exercise Counseling Dietary management e ducation, guidance, and counseling Related to Dietary Surveillance and Counseling Prescribed activity/exercise edu cation Related to Prescribed Activity/Exercise Counseling Prescribed activity/exercise edu cation Related to Prescribed Activity/Exercise Counseling Dietary management e ducation, guidance, and counseling Related to Dietary Surveillance and Counseling Monitor nutrition in take, including carbohydrates and calories. Discuss any significant diet changes with the provider before initiating. Related to Dietary counseling and surveillance Physical activity go al is 30 minutes daily x5-7 days per week. Monitor blood glucose before, during, and after physical activity. Keep rapid acting carbohydrate readily available in case of low blood glucose. Seek medical attention with any shortness of air, chest pain/discomfort, dizziness, or difficulty breathing. Related to Prescribed Activity/Exercise Counseling See dietary and exercise psychosocial rehabilitation counselor ing. Related to Body mass index (BMI) 33.0-33.9, adult Continue taking insu dottie as prescribed. Follow up on 10/28/2021. Patient would benefit from a CGM for home use based on treatment regimen of 4 or more daily injections of insulin that vary in dose based on glucose level, activity level, and food intake. Patient is monitoring blood glucose 3-5 times daily to make these treatment regimen decisions. scheduled if needed. Related to Type 2 diabetes mellitus with hyperglycemia, with long-term current use of insulin Prescribed activity/exercise edu cation Related to Prescribed Activity/Exercise Counseling Dietary management e ducation, guidance, and counseling Related to Dietary Surveillance and Counseling Discussed diet, exer cise, disease process, medication, and signs of worsening illness. Instructed to take medication as prescribed, continue Tylenol and Motrin as needed for pain/fever, follow up in 2-3 days for eval or sooner if symptoms worsen or do not improve, RTC or ER prn.patient to be seen by Darling Newell today for DM Related to Bronchitis See dietary and exercise psychosocial rehabilitation counselor ing. Related to Body mass index (BMI) 33.0-33.9, adult New glucometer and s upplies provided to patient - she voiced understanding of use. Discussed need to monitor glucose closely - she voiced understanding. A1C to be performed today. Follow up in 2-3 days. Call or return to clinic sooner than scheduled if needed. Related to Type 2 diabetes mellitus with hyperglycemia, with long-term current use of insulin Physical activity go al is 30 minutes daily x5-7 days per week. Monitor blood glucose before, during, and after physical activity. Keep rapid acting carbohydrate readily available in case of low blood glucose. Seek medical attention with any shortness of air, chest pain/discomfort, dizziness, or difficulty breathing. Related to Prescribed Activity/Exercise Counseling Monitor nutrition in take, including carbohydrates and calories. Discuss any significant diet changes with the provider before initiating. Related to Dietary counseling and surveillance Prescribed activity/exercise edu cation Related to Prescribed Activity/Exercise Counseling Dietary management e ducation, guidance, and counseling Related to Dietary Surveillance and Counseling Prescribed activity/exercise edu cation Related to Prescribed Activity/Exercise Counseling Dietary management e ducation, guidance, and counseling Related to Dietary Surveillance and Counseling Prescribed activity/exercise edu cation Related to Prescribed Activity/Exercise Counseling Dietary management e ducation, guidance, and counseling Related to Dietary Surveillance and Counseling Prescribed activity/exercise edu cation Related to Prescribed Activity/Exercise Counseling Dietary management e ducation, guidance, and counseling Related to Dietary Surveillance and Counseling Pt presents today fo r regularly scheduled refills.UDS Results: + BupMost Recent Confirmation Results: WNL.Behavioral Modification Progress: STABLE. Pt DENIES relapse since last session.Pt DENIES increased cravings risksPt visit frequency: 3 weeksBuprenorphine 8/2 mg ii daily prescribed #42, No refills. SANJUANA checked. Related to Opioid use disorder, moderate, dependence Dietary management e ducation, guidance, and counseling Related to Dietary Surveillance and Counseling Prescribed activity/exercise edu cation Related to Prescribed Activity/Exercise Counseling Prescribed activity/exercise edu cation Related to Prescribed Activity/Exercise Counseling Dietary management e ducation, guidance, and counseling Related to Dietary Surveillance and Counseling Prescribed activity/exercise edu cation Related to Prescribed Activity/Exercise Counseling Dietary management e ducation, guidance, and counseling Related to Dietary Surveillance and Counseling Prescribed activity/exercise edu cation Related to Prescribed Activity/Exercise Counseling Dietary management e ducation, guidance, and counseling Related to Dietary Surveillance and Counseling Pt presents today fo r regularly scheduled refills.UDS Results: + BupMost Recent Confirmation Results: WNL.Behavioral Modification Progress: STABLE. Pt DENIES relapse since last session.Pt DENIES increased cravings risksPt visit frequency:Buprenorphine 8/2 mg ii daily prescribed #28, No refills. SANJUANA checked. Patient instructed to RTC clinic or visit ER if symptoms progress, persist, or worsen. Take medications as instructed. Scheduled follow up as instructed. Related to Opioid use disorder, moderate, dependence Patient instructed t o RTC clinic or visit ER if symptoms progress, persist, or worsen. Take medications as instructed. Scheduled follow up as instructed. Related to Opioid use disorder, moderate, dependence Prescribed activity/exercise edu cation Related to Prescribed Activity/Exercise Counseling Dietary management e ducation, guidance, and counseling Related to Dietary Surveillance and Counseling Pt presents for sche duled refillsPt submitted a drug screenDrug screen was +bup, THCMost Recent Confirmation Screen: see results Pt reports she is prescribed Gabapentin from NeurologyPt met with CPt denies any illicit drug usePt denies any cravingsPt to follow up in 1 weekPt prescribed Suboxone 8mg film, take 2 films daily #14kasper completed.Covering for Mary Ivey Patient instructed to RTC clinic or visit ER if symptoms progress, persist, or worsen. Take medications as instructed. Scheduled follow up as instructed. Related to Opioid use disorder, moderate, dependence Prescribed activity/exercise edu cation Related to Prescribed Activity/Exercise Counseling Dietary management e ducation, guidance, and counseling Related to Dietary Surveillance and Counseling Prescribed activity/exercise edu cation Related to Prescribed Activity/Exercise Counseling Dietary management e ducation, guidance, and counseling Related to Dietary Surveillance and Counseling Giving encouragement to exercise Related to Prescribed Activity/Exercise Counseling Dietary management e ducation, guidance, and counseling Related to Dietary Surveillance and Counseling Prescribed activity/exercise edu cation Related to Prescribed Activity/Exercise Counseling Dietary management e ducation, guidance, and counseling Related to Dietary Surveillance and Counseling Pt presents for sche duled refillsPt submitted a drug screenDrug screen was +bup, THCMost Recent Confirmation Screen: see results Pt reports she is prescribed Gabapentin from NeurologyPt met with CPt denies any illicit drug usePt denies any cravingsPt to follow up in 4 weeksPt prescribed Suboxone 8mg film, take 2 films daily #42kasper completed. Related to Opioid use disorder, moderate, dependence Prescribed activity/exercise edu cation Related to Prescribed Activity/Exercise Counseling Dietary management e ducation, guidance, and counseling Related to Dietary Surveillance and Counseling Prescribed activity/exercise edu cation Related to Prescribed Activity/Exercise Counseling Dietary management e ducation, guidance, and counseling Related to Dietary Surveillance and Counseling Prescribed activity/exercise edu cation Related to Prescribed Activity/Exercise Counseling Dietary management e ducation, guidance, and counseling Related to Dietary Surveillance and Counseling Monitor nutrition in take, including carbohydrates and calories. Discuss any significant diet changes with the provider before initiating. Related to Dietary counseling and surveillance See dietary and exercise psychosocial rehabilitation counselor ing. Related to Body mass index (BMI) 34.0-34.9, adult Increase 75/25 to 72 units BID and Humulin R to 12 units TGID - continue other medications as prescribed. Follow up in 4 weeks. Call or return to clinic sooner than scheduled if needed. Related to Type 2 diabetes mellitus with hyperglycemia, with long-term current use of insulin Physical activity go al is 30 minutes daily x5-7 days per week. Monitor blood glucose before, during, and after physical activity. Keep rapid acting carbohydrate readily available in case of low blood glucose. Seek medical attention with any shortness of air, chest pain/discomfort, dizziness, or difficulty breathing. Related to Prescribed Activity/Exercise Counseling Pt presents for sche duled refillsPt submitted a drug screenDrug screen was +bup, THCMost Recent Confirmation Screen: BUP/GabapentinAddressed Gabapentin level with ptPt reports she is prescribed Gabapentin from NeurologyPt met with CPt denies any illicit drug usePt denies any cravingsPt to follow up in 4 weeksPt prescribed Suboxone 8mg film, take 2 films daily #42kasper completed. Related to Opioid use disorder, moderate, dependence Prescribed activity/exercise edu cation Related to Prescribed Activity/Exercise Counseling Dietary management e ducation, guidance, and counseling Related to Dietary Surveillance and Counseling Prescribed activity/exercise edu cation Related to Prescribed Activity/Exercise Counseling Dietary management e ducation, guidance, and counseling Related to Dietary Surveillance and Counseling Prescribed activity/exercise edu cation Related to Prescribed Activity/Exercise Counseling Dietary management e ducation, guidance, and counseling Related to Dietary Surveillance and Counseling Pt presents for sche duled refillsPt submitted a drug screenDrug screen wasMost Recent Confirmation Screen: BUP/GabapentinAddressed Gabapentin level with ptPt reports she is prescribed Gabapentin from [facility]Pt [facility] denies any illicit drug usePt denies any cravingsPt to follow up in 3 weeksPt prescribed Suboxone 8mg film, take 2 films daily #42kasper completed.Covering for Mary Schmittrobynromy Related to Opioid use disorder, moderate, dependence Dietary management e ducation, guidance, and counseling Related to Dietary Surveillance and Counseling Prescribed activity/exercise edu cation Related to Prescribed Activity/Exercise Counseling Prescribed activity/exercise edu cation Related to Prescribed Activity/Exercise Counseling Dietary management e ducation, guidance, and counseling Related to Dietary Surveillance and Counseling Patient presents tod ay for regular scheduled refills. Urine Drug Screen SubmittedUSD Results: positive for buprenorphineMost Recent Confirmation Results: see reportBehavioral Modification Progress: improvinghas met with [facility] Denies relapse since last sessionPatient Denies increased craving risksDose Changes: noneBuprenorphine 8mg/naloxone 2mg 2 films SL daily, prescribed #38, no refillsKASPER reviewed Related to Opioid use disorder, moderate, dependence Patient presents tod ay for regular scheduled refills. Urine Drug Screen Submitted: 03/25/2022USD Results: positive for buprenorphineMost Recent Confirmation Results: see reportBehavioral Modification Progress: improvinghas met with [facility] Denies relapse since last sessionPatient Denies increased craving risksDose Changes: noneBuprenorphine 8mg/naloxone 2mg 2 films SL daily, prescribed #38, no refillsKASPER reviewed Related to Opioid use disorder, moderate, dependence Prescribed activity/exercise edu cation Related to Prescribed Activity/Exercise Counseling Dietary management e ducation, guidance, and counseling Related to Dietary Surveillance and Counseling Prescribed activity/exercise edu cation Related to Prescribed Activity/Exercise Counseling Dietary management e ducation, guidance, and counseling Related to Dietary Surveillance and Counseling Prescribed activity/exercise edu cation Related to Prescribed Activity/Exercise Counseling Dietary management e ducation, guidance, and counseling Related to Dietary Surveillance and Counseling Patient presents tod ay for regular scheduled refills. Urine Drug Screen Submitted: 03/11/2022USD Results: positive for buprenorphineMost Recent Confirmation Results: see reportBehavioral Modification Progress: improvinghas [facility] Denies relapse since last sessionPatient Denies increased craving risksPatient visit frequency: 14 daysDose Changes: noneBuprenorphine 8mg/naloxone 2mg 2 films SL daily, prescribed #28, no refillsKASPER reviewed Related to Opioid use disorder, moderate, dependence Dietary management e ducation, guidance, and counseling Related to Dietary Surveillance and Counseling Prescribed activity/exercise edu cation Related to Prescribed Activity/Exercise Counseling Prescribed activity/exercise edu cation Related to Prescribed Activity/Exercise Counseling Dietary management e ducation, guidance, and counseling Related to Dietary Surveillance and Counseling Patient presents tod ay for regular scheduled refills. Urine Drug Screen Submitted: 02/25/2022D Results: positive for buprenorphineMost Recent Confirmation Results: see reportBehavioral Modification Progress: improvinghas [facility] Denies relapse since last sessionPatient Denies increased craving risksPatient visit frequency: 14 daysDose Changes: noneBuprenorphine 8mg/naloxone 2mg 2 films SL daily, prescribed #28, no refillsKASPER reviewed Related to Moderate opioid dependence Prescribed activity/exercise edu cation Related to Prescribed Activity/Exercise Counseling Dietary management e ducation, guidance, and counseling Related to Dietary Surveillance and Counseling Dietary management e ducation, guidance, and counseling Related to Dietary Surveillance and Counseling Prescribed activity/exercise edu cation Related to Prescribed Activity/Exercise Counseling Dietary management e ducation, guidance, and counseling Related to Dietary Surveillance and Counseling Prescribed activity/exercise edu cation Related to Prescribed Activity/Exercise Counseling Patient presents tod ay for regular scheduled refills. Urine Drug Screen Submitted: 02/18/2022D Results: positive for buprenorphineMost Recent Confirmation Results: see reportBehavioral Modification Progress: improvingGee Seen Counselor on: 02/18/2022atient Denies relapse since last sessionPatient Denies increased craving risksPatient visit frequency: 7 daysDose Changes: noneBuprenorphine 8mg/naloxone 2mg 2 films SL daily, prescribed #14, no refillsKASPER reviewed Related to Opioid use disorder, moderate, dependence Prescribed activity/exercise edu cation Related to Prescribed Activity/Exercise Counseling Dietary management e ducation, guidance, and counseling Related to Dietary Surveillance and Counseling Dietary management e ducation, guidance, and counseling Related to Dietary Surveillance and Counseling Prescribed activity/exercise edu cation Related to Prescribed Activity/Exercise Counseling Patient presents tod ay for regular scheduled refills. Urine Drug Screen Submitted: 02/13/2022USD Results: positive for buprenorphineMost Recent Confirmation Results: see reportBehavioral Modification Progress: improvingSgt Seen Counselor on: 02/13/2022ati Denies relapse since last sessionPatient Denies increased craving risksPatient visit frequency: 5 daysDose Changes: noneBuprenorphine 8mg/naloxone 2mg 2 films SL daily, prescribed #14 , no refillsKASPER reviewed Related to Opioid use disorder Prescribed activity/exercise edu cation Related to Prescribed Activity/Exercise Counseling Dietary management e ducation, guidance, and counseling Related to Dietary Surveillance and Counseling Prescribed activity/exercise edu cation Related to Prescribed Activity/Exercise Counseling Dietary management e ducation, guidance, and counseling Related to Dietary Surveillance and Counseling Patient presents tod ay for regular scheduled refills. Urine Drug Screen Submitted: 02/05/2022USD Results: positive for buprenorphine, THC, opioidsMost Recent Confirmation Results: see reportBehavioral Modification Progress: improvingSgt Seen Counselor on: 02/05/2022atient Denies relapse since last sessionPatient Denies increased craving risksPatient visit frequency: weeklyDose Changes: noneBuprenorphine 8mg/naloxone 2mg 2 films SL daily, prescribed #14 , no refillsKASPER reviewed Related to Opioid use disorder Prescribed activity/exercise edu cation Related to Prescribed Activity/Exercise Counseling Dietary management e ducation, guidance, and counseling Related to Dietary Surveillance and Counseling Patient presents tod for regular scheduled refills. Instructed to submit UDSMost Recent Confirmation Results: see lab resultsBehavioral Modification Progress: improvingHas met with CPatient Denies relapse since last sessionPatient Denies increased craving risksPatient visit frequency: WeeklyDose Changes: noneBuprenorphine 8mg/naloxone 2mg 2 films SL daily, prescribed #14 , no refillsKASPER reviewed Related to Opioid dependence, uncomplicated MAT Day 2 Has met [facility]. UDS positive for buprenorphine, THC, benzosAdmits increase cravings and withdrawal symptomsPatient dose to increase to buprenorphine 8mg-naloxone 1.5 films once a day, dispense #2, no refillsFollow up tomorrow for MAT Day 3 induction Related to Opioid use disorder MAT Day 3 inductionU DS positive for buprenorphine, benzos, THCSee scanned in COWS scoreAdmits increased cravingsprescribed buprenorphine 8mg-naloxone 2 mg 2 films SL once a day, dispense #14, no refillsFollow up in 1 week for eval or sooner if neededKASPER appropriate Related to Opioid use disorder Dietary management e ducation, guidance, and counseling Related to Dietary Surveillance and Counseling Prescribed activity/exercise edu cation Related to Prescribed Activity/Exercise Counseling Dietary management e ducation, guidance, and counseling Related to Dietary Surveillance and Counseling Prescribed activity/exercise edu cation Related to Prescribed Activity/Exercise Counseling Prescribed activity/exercise edu cation Related to Prescribed Activity/Exercise Counseling Prescribed activity/exercise edu cation Related to Prescribed Activity/Exercise Counseling Dietary management e ducation, guidance, and counseling Related to Dietary Surveillance and Counseling Dietary management e ducation, guidance, and counseling Related to Dietary Surveillance and Counseling Patient presents for MAT Day 1 induction. UDS performed, positive for opioids. Patient met with behavioral health counselor. COWS score 21 per behavioral health counselor. Patient to begin on buprenorphine 8mg-naloxone 2 mg 1 film SL daily, dispense #1, no refills. SANJUANA appropriate, follow up tomorrow for Day 2 MAT induction. Related to Opioid dependence, uncomplicated Dietary management e ducation, guidance, and counseling Related to Dietary Surveillance and Counseling Prescribed activity/exercise edu cation Related to Prescribed Activity/Exercise Counseling Prescribed activity/exercise edu cation Related to Prescribed Activity/Exercise Counseling Dietary management e ducation, guidance, and counseling Related to Dietary Surveillance and Counseling instructed to follow up as scheduled for MAT Day 1 Induction Related to Opioid use disorder Prescribed activity/exercise edu cation Related to Prescribed Activity/Exercise Counseling Dietary management e ducation, guidance, and counseling Related to Dietary Surveillance and Counseling Assessments Type Assessment Date No Information Patient Care Teams Name Effective Dates (start - stop) Status Members No Information
--- NOTE | 2024-01-25 17:56 | ED_ITS ---
Discharge Plan Disposition Patient Disposition: Home, Self-Care Condition: Good Prescriptions Prescriptions: New prednisone 10 mg tablet 10 mg PO DIRECTED 9 Days Qty: 21 0RF Rx Instructions: Take 4 tablets daily for 3 days, then take 2 tablets daily for 3 days, then take 1 tablet daily for 3 days, then stop. benzonatate 100 mg capsule 100 mg PO TIDP PRN (Reason: Cough) Qty: 30 0RF guaifenesin [Mucinex] 600 mg tablet extended release 12hr 600 - 1,200 mg PO BIDP PRN (Reason: Congestion) Qty: 30 0RF levofloxacin 500 mg tablet 500 mg PO DAILY Qty: 7 0RF fluticasone propion-salmeterol [Advair Diskus] 250-50 mcg/dose blister with device 1 inh inhalation BID 30 Days Qty: 60 5RF promethazine-DM 6.25-15 mg/5 mL Syrup 5 ml PO Q6H PRN (Reason: Cough) Qty: 240 0RF No Action simvastatin 10 MG tablet 10 mg PO QPM Qty: 90 0RF gabapentin 800 mg tablet 800 mg PO QID promethazine 25 mg tablet 25 mg PO Q4-6H PRN (Reason: Nausea And Vomiting) Qty: 30 0RF potassium chloride 10 mEq capsule, extended release 10 meq PO DAILY Qty: 30 2RF Rx Instructions: give with food (meal/snack) dicyclomine 10 MG capsule 10 mg PO Q8H buprenorphine-naloxone 1 EACH film 1 each PO BID Patient Comments: DISSOLVE TWO films UNDER THE TONGUE EVERY DAY ondansetron 4 MG tablet,disintegrating 4 mg SL Q6HP PRN (Reason: Nausea) 7 Days Qty: 30 0RF eszopiclone 2 MG tablet 2 mg PO QHS PRN (Reason: Sleep) carvedilol 3.125 MG tablet 3.125 mg PO BID ergocalciferol (vitamin D2) 50,000 UNIT capsule 50,000 unit PO QWEEK cholecalciferol (vitamin D3) 1,000 UNIT capsule 1,000 unit PO ONCE Rx Instructions: administer with meals fenofibrate nanocrystallized 145 MG tablet 145 mg PO DAILY Rx Instructions: swallow whole; do not chew/break/dissolve/open metronidazole 500 MG tablet 500 mg PO TID Qty: 21 0RF Referrals Follow up/Referrals: Provider,Referral, MD [Primary Care Provider] - See instructions Activity Restrictions/Add. Instructions Additional Instructions/Restrictions: Take tylenol for pain or fever. Take the medications as directed. Follow up with your regular doctor. GO TO THE ER FOR ANY WORSENING SYMPTOMS Don't start the oral steroids until tomorrow since you had the steroid shot here today. The cough medication (promethazine dm) will make you drowsy, so don't drive or operate heavy machinery after taking it. Clinical Impressions Clinical Impression: COPD exacerbation, Viral syndrome Stand Alone Forms Stand Alone Forms: Work/School Release Instructions Patient Instructions: DI for Chronic Obstructive Pulmonary Disease Discharge ED [place]b [place] [facility] [place] General Stated complaint: cough,congestion Time Seen by Provider: 01/25/24 17:56 History of Present Illness Provider Complaint: She states that for the past 3 days she has had worsening chest and sinus congestion. She has a history of copd. She has been having wheezing and shortness of breath with activity. She is coughing up greenish sputum. She went to the [facility] in [place] 2 days ago for these symptoms. She states that she was given an steroid iv injection then. She states that she started to feel better for 1 day, but today her wheezing and chest tightness has returned. She denies any chest pain. Related Data Home Medications Medication Instructions Recorded Confirmed dicyclomine 10 mg capsule 10 mg PO Q8H Pain 10/26/17 08/01/19 gabapentin 800 mg tablet 800 mg PO QID Pain 12/30/17 08/01/19 carvedilol 3.125 mg tablet 3.125 mg PO BID Hypertension 01/05/18 08/01/19 cholecalciferol (vitamin D3) 25 1,000 unit PO ONCE Supplement 01/05/18 08/01/19 mcg (1,000 unit) capsule ergocalciferol (vitamin D2) 1,250 50,000 unit PO QWEEK Supplement 01/05/18 08/01/19 mcg (50,000 unit) capsule fenofibrate nanocrystallized 145 145 mg PO DAILY Supplement 01/05/18 08/01/19 mg tablet buprenorphine 8 mg-naloxone 2 mg 1 each PO BID addiction 01/16/18 08/01/19 sublingual film eszopiclone 2 mg tablet 2 mg PO QHS PRN Sleep 03/07/18 08/01/19 Previous Rx's Medication Instructions Recorded simvastatin 10 mg tablet 10 mg PO QPM Cholesterol #90 tabs 12/30/17 promethazine 25 mg tablet 25 mg PO Q4-6H PRN Nausea And 02/10/18 Vomiting #30 tabs ondansetron 4 mg disintegrating 4 mg SL Q6HP PRN Nausea 7 days ##30 02/23/18 tablet potassium chloride 10 mEq 10 meq PO DAILY Supplement #30 caps 04/08/18 capsule,extended release metronidazole 500 mg tablet 500 mg PO TID #21 tabs 07/25/19 benzonatate 100 mg capsule 100 mg PO TIDP PRN Cough #30 caps 01/25/24 fluticasone 250 mcg-salmeterol 50 1 inh inhalation BID 30 days #60 ea 01/25/24 mcg/dose blistr powdr for inhalation (Advair Diskus) guaifenesin 600 mg tablet, 600 - 1,200 mg (1 - 2 x 600 mg) PO 01/25/24 extended release 12 hr (Mucinex) BIDP PRN Congestion #30 tabs levofloxacin 500 mg tablet 500 mg PO DAILY #7 tabs 01/25/24 prednisone 10 mg tablet 10 mg PO DIRECTED 9 days #21 01/25/24 tabs promethazine-DM 6.25 mg-15 mg/5 mL 5 ml PO Q6H PRN Cough #240 mL 01/25/24 oral syrup Allergies Allergy/AdvReac Type Severity Reaction Status Date / Time clarithromycin Allergy Severe S-DROP IN Verified 01/25/24 18:17 B/P nitrofurantoin Allergy Severe ORGANS Verified 01/25/24 18:17 [From Macrodantin] SHUT OFF pseudoephedrine Allergy Severe S-SWELLS-OR Verified 01/25/24 18:17 [From Sudafed] AL/THROAT adhesive tape Allergy Intermediate I-HIVES, Verified 01/25/24 18:17 BLISTERING (PAPER TAPE) codeine Allergy Intermediate I-HIVES Verified 01/25/24 18:17 Penicillins Allergy Intermediate I-HIVES, Verified 01/25/24 18:17 VOMITING Sulfa (Sulfonamide Allergy Intermediate I-HIVES Verified 01/25/24 18:17 Antibiotics) venlafaxine [From Effexor] Allergy Intermediate INCREASED Verified 01/25/24 18:17 HEART RATE ibuprofen [IBUPROFEN] Allergy Mild Verified 01/25/24 18:17 latex [LATEX] Allergy Mild I-RASH Verified 01/25/24 18:17 morphine [MORPHINE] Allergy Mild Verified 01/25/24 18:17 fluconazole [From DIFLUCAN] Allergy Unknown CAUSED HER Verified 01/25/24 18:17 TO BREAK OUT W/HERPES AROUND HER MOUTH metoclopramide [From Reglan] AdvReac Severe JAUNDICE Verified 01/25/24 18:17 mirtazapine [From Remeron] AdvReac Severe JAUNDICE Verified 01/25/24 18:17 amitriptyline [From Elavil] AdvReac Mild NA-DIARRHEA Verified 01/25/24 18:17 chocolate flavor AdvReac Mild INCREASED Verified 01/25/24 18:17 [From CHOCOLATE (FOOD/DRUG)] IRON MAKES HER HIGH LIKE ON SOMETHING ciprofloxacin AdvReac Mild VOMITING Verified 01/25/24 18:17 MONOSTAT Allergy Mild BLISTERS Uncoded 08/01/19 10:31 From CHOCOLATE (FOOD/DRUG) AdvReac Mild INCREASED Uncoded 08/01/19 10:[address] [facility] Disclaimer: The information contained in this section may have been updated after the lala reyna was seen, as this information can be updated by other users. Medical History (Updated 01/25/24 @ 18:58 by Seb Lopez APRN) Left otitis media Vitamin D deficiency (~01/03/18) Hyperlipidemia (~01/03/18) Back Pain Diabetes mellitus Flatulence/gas pain/belching Social History Smoking Status: Current every day smoker tobacco type: cigarettes packs per day: 1 alcohol intake: never substance use type: former substance user current occupational status: unemployed Travel in the last 8 weeks: None household members: family housing: house caffeine: Yes ROS Obtained: Yes All systems reviewed & no additional complaints except as documented Constitutional Constitutional: Reports poor appetite Eyes Eyes: Reports system reviewed and no additional complaints, except as documented ENT Ears, Nose, Mouth, and Throat: Reports as per HPI Cardiovascular Cardiovascular: Reports system reviewed and no additional complaints, except as documented and Denies chest pain Respiratory Respiratory: Denies shortness of breath, Reports chest congestion, Reports cough, Denies stridor and Denies wheezing Gastrointestinal Gastrointestingal: Reports system reviewed and no additional complaints, except as documented; Denies abdominal pain, diarrhea or vomiting Musculoskeletal Musculoskeletal: Reports system reviewed and no additional complaints, except as documented and Denies arthralgias Integumentary/Breasts Skin/Breast: Reports system reviewed and no additional complaints, except as documented and Denies rash Neurologic Neurologic: Denies paresthesias Allergic/Immunologic Allergic/Immunologic: Denies wheezing Physical Exam General General appearance: alert and in no apparent distress Eye Eye exam: Present normal appearance, PERRL and EOMI ENT ENT exam: Present mucous membranes moist and normal external ear exam Expanded ENT Exam External ear exam: Present normal external inspection TM/Canal exam: Bilateral TM: erythema and bulging Nose exam: Absent sinus tenderness Nasal speculum exam: Bilateral: normal Mouth exam: Present normal external inspection; Absent drooling Teeth exam: Present normal inspection Throat exam: Present tonsillar erythema and tonsillomegaly Neck Neck exam: Present normal inspection, full ROM and trachea midline; Absent tenderness, lymphadenopathy or thyromegaly Chest Chest inspection: Present normal inspection and symmetric chest wall rise; Absent tenderness or rash Respiratory Respiratory exam: Present normal lung sounds bilaterally; Absent respiratory distress, wheezes, stridor or accessory muscle use Cardiovascular Cardiovascular exam: Present regular rate, normal rhythm and normal heart sounds Abdominal Exam Abdominal exam: Present soft; Absent distention, tenderness, guarding, rebound or rigidity Extremities Exam Extremities exam: Present normal inspection, full ROM and normal capillary refill; Absent tenderness or calf tenderness Back Exam Back exam: Present normal inspection and full ROM; Absent tenderness Neurological Exam Neurological exam: Present alert and oriented X3 Psychiatric Psychiatric exam: Present normal affect and normal mood Skin Skin exam: Present warm, dry, intact and normal color Lymphatic Lymphatic Findings: no adenopathy Medical Decision Making Medical Records Medical records reviewed: No I reviewed the patient's medical records. [place] Inquiry Pt receiving controlled substance: No Lab Data Lab results reviewed: Yes I reviewed the patient's lab results. Radiology Data #1: Image(s): Chest Image Reviewed: Yes I reviewed the patient's radiology image and Yes I have reviewed radiologist's interpretation Preliminary Findings: No Infiltrates Seen Accession No. : [id number] Patient Name / ID : Aries Joyce / [id number] Exam Date : 01/25/2024 17:55:21 ( Final ) Study Comment : Sex / Age : F / 48Y Creator : WILLY PETTY Dictator : Health Insurance Specialist : Healthcare Administration Intern : WILLY PETTY Approver2 : Report Date : 01/25/2024 18:30:57 My Comment : PROCEDURE INFORMATION: Exam: XR Chest Exam date and time: 01/25/2024 5:55 PM Age: 48 years old Clinical indication: Cough; Patient HX: PT states she thinks she has pneumonia; Additional info: Cough, productive TECHNIQUE: Imaging protocol: Radiologic exam of the chest. Views: 2 views. COMPARISON: CR CXR2V XR chest 2V 02/23/2018 6:05 PM FINDINGS: Lungs: Unremarkable. No consolidation. Pleural spaces: Unremarkable. No pleural effusion. No pneumothorax. Heart/Mediastinum: Unremarkable. No cardiomegaly. Bones/joints: Unremarkable. IMPRESSION: Stable chest x-ray with no acute disease.
[2024-01-25 18:00] VITALS: BP 109/82; PULSE 105; RESP 21; TEMP 36.8; O2SAT 93; BMI 33.6
--- NOTE | 2024-01-25 18:00 | XR_ITS ---
PROCEDURE INFORMATION: Exam: XR Chest Exam date and time: 01/25/2024 5:55 PM Age: 48 years old Clinical indication: Cough; Patient HX: PT states she thinks she has pneumonia; Additional info: Cough, productive TECHNIQUE: Imaging protocol: Radiologic exam of the chest. Views: 2 views. COMPARISON: CR CXR2V XR chest 2V 02/23/2018 6:05 PM FINDINGS: Lungs: Unremarkable. No consolidation. Pleural spaces: Unremarkable. No pleural effusion. No pneumothorax. Heart/Mediastinum: Unremarkable. No cardiomegaly. Bones/joints: Unremarkable. IMPRESSION: Stable chest x-ray with no acute disease.
[2024-01-25] MEDS: IPRATROPIUM/ALBUTEROL 3 ML NEB IH (18:27)
--- NOTE | 2024-01-25 18:59 | PC.NURSE ---
Pt stated that she is able to take diflucan and levoquin.
[2024-01-25] MEDS: DEXAMETHASONE 4MG/ML 1ML VIAL 8 MG IM (19:03)
[2024-01-25] MEDS: levoFLOXacin 500MG TAB 500 MG PO (19:07)
[2024-01-25 19:31] LABS: Adenovirus,PCR Not Detected (NotDetected); Bordetella Pertussis Not Detected (NotDetected); Chlamydophila Pneumoniae, PCR Not Detected (NotDetected); Coronavirus 19, PCR Not Detected (NotDetected); Coronavirus 229E Not Detected (NotDetected); Coronavirus NL63 Not Detected (NotDetected); Coronavirus OC43 Not Detected (NotDetected); Coronovirus HKU1,PCR Not Detected (NotDetected); Human Metapneumovirus Not Detected (NotDetected); Influenza A, PCR Not Detected (NotDetected); Influenza AH1, 2009 Not Detected (NotDetected); Influenza AH1, PCR Not Detected (NotDetected); Influenza AH3,PCR Not Detected (NotDetected); Influenza B, PCR Not Detected (NotDetected); Mycoplasma Pneumoniae, PCR Not Detected (NotDetected); Parainfluenza 1, PCR Not Detected (NotDetected); Parainfluenza 2, PCR Not Detected (NotDetected); Parainfluenza 3, PCR Not Detected (NotDetected); Parainfluenza 4, PCR Not Detected (NotDetected); Respiratory Syncytial Virus Not Detected (NotDetected)
[2024-01-25 19:33] VITALS: BP 109/82; PULSE 105; RESP 18; TEMP 36.8; O2SAT 93
[2024-01-26 05:41] LABS: Rhinovirus/Enterovirus Detected (NotDetected)
== END 2024-01-25 19:33 | disposition home or self-care (01) ==
PROVIDERS: Emergency Provider Nurse Practitioner Family
DX: B34.1 Enterovirus infection, unspecified (principal); J44.1 Chronic obstructive pulmonary disease with (acute) exacerbation; R06.2 Wheezing; R05.9 Cough, unspecified; R09.81 Nasal congestion; F17.210 Nicotine dependence, cigarettes, uncomplicated
CPT/HCPCS: 71046; 87581; 87632; 87635; 87798; 96372; 99212; 99214; G0463

== ENCOUNTER 2024-12-25 16:15 | Outpatient (CLI) | payer MEDICARE, SELFPAY ==
[2024-12-25 15:27] LABS: Microscopic,Cath URINE MICROSCOPIC (MICROSCOPIC)
[2024-12-25 16:03] LABS: Appearance,Urine/Cath CLEAR (Clear); Bilirubin,Cath Negative (Negative); Blood, Urine/Cath 2+ (Negative); Color,Urine/Cath YELLOW (Yellow); Glucose,Urine/Cath (UA) 3+ (Negative); Ketones,Urine/Cath Negative (Negative); Leukocyte Esterase,Cath Negative (Negative); Nitrate,Cath Negative (Negative); Protein,Urine/Cath Negative (Negative); Specific Gravity, Urine/Cath 1.025 (1.005-1.030); Urobilinogen,Cath 0.2 EU/dl (0.2)
[2024-12-25 16:38] LABS: Yeast,Urine/Cath OCC
[2024-12-25 16:39] LABS: Squamous Epithelial Ur./Cath Occasional #/hpf (0-5)
[2024-12-29 15:11] LABS: Atopobium vaginae Low - 0 Score (.); BVAB2 Low - 0 Score (.); Candida albicans NAA Negative (Negative); Candida glabrata Positive (Negative); Chlamydia Trachomatis NAA Negative (Negative); HSV 1 NAA Negative (Negative); HSV 2 NAA Negative (Negative); Megasphaera 1 Low - 0 Score (.); Neisseria gonorrhoeae NAA Negative (Negative); Trich vag NAA Negative (Negative)
== END 2024-12-25 23:59 | disposition home or self-care (01) ==
LOC: LAB.DROPOF 16:16
PROVIDERS: PCP Urology; Visit Provider Urology
DX: N30.00 Acute cystitis without hematuria (principal)
CPT/HCPCS: 81001; 87491; 87529; 87591; 87661; 87798; 87801

== ENCOUNTER 2025-01-18 08:54 | Outpatient (CLI) | payer MEDICARE, SELFPAY ==
[2025-01-18 09:18] LABS: Blood Urea Nitrogen 12 mg/dl (7-17); Estimated Glomerular Filt Rate 105 ml/min (>60); GFR (African American) 128 ML/MIN (>60)
== END 2025-01-18 23:59 | disposition home or self-care (01) ==
LOC: RAD 08:57
PROVIDERS: PCP Physician Assistant; Visit Provider Urology
DX: N30.00 Acute cystitis without hematuria (principal)
CPT/HCPCS: 36415; 82565; 84520

== ENCOUNTER 2025-01-26 07:21 | Day surgery (SDC) | payer MEDICARE, SELFPAY ==
[2025-01-23 13:34] VITALS: BMI 27.1
[2025-01-26 07:48] VITALS: BP 111/73; PULSE 76; RESP 17; TEMP 36.2; O2SAT 97
[2025-01-26] MEDS: 0.9 % SODIUM CHLORIDE 500 ML 25 ML IV (08:22)
--- NOTE | 2025-01-26 08:24 | [facility].PROCNOTE ---
[facility] Procedure Note Date: 01/26/25 Time: 08:24 Procedure Note:: Chart review: The patient is here as part of a hematuria oh workup. She has been yet using Estrace and oxybutynin. She has also some elements of stress incontinence and urge urinary incontinence. She had a hysterectomy at the age of 22 and the ovaries were removed without hormone replacement. 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 Preop diagnosis: Hematuria: Postop diagnosis: Hematuria Operative note: The patient was brought to the cystoscopy suite. She was prepped in the standard fashion. She underwent catheterization for urine culture and sensitivity. She underwent flexible cystoscopy. The patient's urethra is unremarkable. The bladder itself is Xenia pink in color throughout without evidence of bladder stone tumor hemorrhage or infection. The left and right ureteral orifices are normal with clear E flux of urine. The patient tolerated the procedure well.
[2025-01-26 08:26] VITALS: BP 115/73; PULSE 77; RESP 18; TEMP 36.1; O2SAT 97
[2025-01-26 12:26] LABS: POC Glucose,Bedside 328 (70-110)
[2025-01-26 12:26] LABS: Microscopic,Cath URINE MICROSCOPIC (MICROSCOPIC)
[2025-01-26 12:49] LABS: Appearance,Urine/Cath CLEAR (Clear); Bilirubin,Cath Negative (Negative); Blood, Urine/Cath Negative (Negative); Color,Urine/Cath YELLOW (Yellow); Glucose,Urine/Cath (UA) 3+ (Negative); Ketones,Urine/Cath Negative (Negative); Leukocyte Esterase,Cath Negative (Negative); Nitrate,Cath Negative (Negative); Protein,Urine/Cath 2+ (Negative); Specific Gravity, Urine/Cath >= 1.030 (1.005-1.030); Urobilinogen,Cath 0.2 EU/dl (0.2)
[2025-01-26 13:07] LABS: CA Oxalate Crystals,Ur/Cath 2+ /lpf
== END 2025-01-26 08:35 | disposition home or self-care (01) ==
PROVIDERS: PCP Physician Assistant; Visit Provider Urology
PROC: 0TJB8ZZ Inspection of Bladder, Via Natural or Artificial Opening Endoscopic (ICD-10-PCS; CPT 52000; principal; 2025-01-26 08:30)
DX: R31.9 Hematuria, unspecified (principal); N39.46 Mixed incontinence; E11.9 Type 2 diabetes mellitus without complications
CPT/HCPCS: 52000; 81001; 82962